=== PATIENT | male | born 1940 | race Caucasian/White ===

== ENCOUNTER → 2016-09-15 | Outpatient (CLI) | payer BC ==
[~2016-09-15] MED LIST: ALLO300T2 PO; ASPI-435 PO; ASPI325T39 PO; FINA5TAB4 PO; GLIP5TAB3 PO; LACT10CA3 PO; LISI-461 PO; METO100T44 PO; MRLP17X PO; NITR0.4S UT; PRT40 PO; SALI0.6510 NAE; SIMV20TA2 PO; TAMS0.4C38 PO
== END | disposition home or self-care (01) ==
LOC: C.LAB 06:44
PROVIDERS: ATTEND Urology
DX: N40.1 Benign prostatic hyperplasia with lower urinary tract symptoms (principal)

== ENCOUNTER 2016-11-20 07:58 | Observation (INO) | payer BC, OTHER ==
[~2016-11-20] VITALS: Ht 185.4 cm; Wt 99.8 kg
[~2016-11-20 07:58] MED LIST changes: -ASPI-435 PO; -PRT40 PO
[2016-11-20] MEDS ORDERED: SODIUM CHLORIDE 0.9% 1000ML 1,000 ML IV STA (08:35)
[2016-11-20] MEDS ORDERED: ASPIRIN 81 MG CHEW ONE (08:42)
[2016-11-20] MEDS ORDERED: NURSING VERBAL MED ORDER ONE (08:45)
[2016-11-20] MEDS ORDERED: NITROGLYCERIN 0.4 MG SL PER TAB CHARGE SL PRN (08:45)
[2016-11-20 08:50] LABS: BASO % 0.6 %; BASO ABS # 0.05 K/uL (0-0.2); COMPLETE YES; EOS % 4.5 %; HEMATOCRIT 50.5 % (42-52); IG% 0.5 %; LYMPH % 17.9 %; LYMPH ABS # 1.38 K/uL (1.2-3.4); MEAN CELL VOLUME 87.8 fL (80-100); MEAN CORPUSCULAR HEMOGLOBIN 29.6 pg (25-34); MEAN CORPUSCULAR HGB CONC 33.7 g/dl (32-36); MEAN PLATELET VOLUME 9.4 fL (7.4-10.4); NEUT % 70.5 %; PLATELET COUNT 123 K/uL (130-400); RED BLOOD COUNT 5.75 M/uL (4.7-6.1); WHITE BLOOD COUNT 7.71 K/uL (4.8-10.8)
[2016-11-20 08:58] LABS: BUN/CREATININE RATIO 15.5 (10-20); CREATININE 1.1 mg/dl (0.60-1.40); POTASSIUM 4.1 mmol/L (3.5-5.1)
[2016-11-20 09:00] LABS: CALCIUM 8.3 mg/dl (8.5-10.1)
[2016-11-20 09:02] LABS: CKMB/CK RATIO 2.3 (0-3.0)
--- NOTE | 2016-11-20 09:06 | DIAGNOSTIC IMAGING REPORT ---
CHEST ONE VIEW PORTABLE CLINICAL HISTORY: CHEST PAIN dyspnea COMPARISON STUDY: 04/22/2015 FINDINGS: The bones soft tissues and hemidiaphragms are normal. The cardiomediastinal silhouette is normal. The lungs are clear. The pulmonary vasculature is normal. IMPRESSION: Negative chest. Electronically signed by: Lance Turner M.D. 11/20/2016 9:05 AM Dictated Date/Time: 11/20/2016 9:04 AM
[2016-11-20] MEDS ORDERED: ASPI-435 PO (09:09)
--- NOTE | 2016-11-20 09:40 | EMERGENCY ROOM VISIT NOTE ---
ED Visit Note First contact with patient: 08:16 Chief Complaint: Chest pain. History of Present Illness: Mr. Sarmiento is a 76 year-old white male who is brought into the ED via wheelchair accompanied by his complaining of chest pain. Historically patient reports he has had a previous inferior lateral [place] and 2000 and was treated with thrombolytics and a follow-up catheterization showed moderate nonocclusive arthrosclerosis coronary artery disease and 3 vessels, type 2 diabetes, hypertension and dyslipidemia. Patient reports he has had a persistent mildly productive cough for the last couple weeks but has had no associated symptoms. He reports he has had recent follow-up with his primary care provider who has decreased his aspirin dose to 81 mg from 324 mg per day. Patient reports he woke from sleep normally today and then after breakfast, at approximately 6:30 AM, he was lying in bed in an acute onset of midsternal chest pain. Since that time his pain has been constant. He describes it as a pressure sensation. His pain is nonradiating. He reports approximately 45 minutes after the onset of this pain he did take one sublingual nitroglycerin tablet and his pain decreased from an 8/10 to a 4/10; which is his current level of discomfort. He has not identified any aggravating factors related to the pain. He does report initially thought this was indigestion and had drank in some soda without relief of his discomfort. He denies any associated symptoms with his pain but nursing staff reports that he was diaphoretic in triage and he reports he had a mild headache after his nitroglycerin administration. He denies fevers, chills, skin eruptions, skin color changes, dizziness, lightheadedness, shortness of breath, wheezing, hemoptysis, other upper respiratory tract symptoms, palpitations, orthopnea, dependent edema, previous clots, claudication, cramping, recent surgery/inactivity/extended travel, abdominal pain, nausea, vomiting, diarrhea, constipation, rectal bleeding, black /tarry stools, back/flank pain, urinary symptoms, hematuria. Review of Systems: As noted above in history of present illness. All body systems were reviewed and found to be negative as noted above. Past Medical History: As previously noted, benign neoplasm of the colon, gout, thyroid nodule, inguinal hernia, status post cataract surgery and unspecified cyst removal from the chest. Current Medications: Medications Dose Route/Sig Max Daily Dose Days Date Category Dose Instructions Aspirin 81 (Aspirin) 81 Mg Tab 81 Mg PO QAM 11/20/16 Reported Williamson Nasal Thor (Saline) 0.65 % Spr 1 Thor EMI TID PRN 04/21/15 Reported Culturelle (Lactobacillus-Inulin) 1 Cap Cap 1 Cap PO DAILY PRN 04/21/15 Reported Flomax (Tamsulosin Hcl) 0.4 Mg Cap 0.4 Mg PO QPM 04/21/15 Reported TAKE 1/2 HOUR AFTER SUPPER Proscar (Finasteride) 5 Mg Tab 5 Mg PO HS 04/21/15 Reported Glucotrol (Glipizide) 5 Mg Tab 5 Mg PO BIDM 04/21/15 Reported Zyloprim (Allopurinol) 300 Mg Tab 300 Mg PO QAM 04/21/15 Reported Nitrostat (Nitroglycerin) 0.4 Mg Sub 0.4 Mg UT UD PRN 02/15/15 Reported Zocor (Simvastatin) 20 Mg Tab 20 Mg PO HS 03/26/07 Reported Zestril (Lisinopril) 10 Mg Tab 10 Mg PO QPM 03/26/07 Reported Toprol-Xl (Metoprolol Succinate) 100 Mg Tabcr 100 Mg PO HS 03/26/07 Reported Allergies to Medications: Penicillin, Bactrim. Social History: Patient is currently retired and lives with his ; he feels safe in his home environment; he denies tobacco and alcohol use. Physical Examination: Vital Signs: Date Time Temp Pulse Resp B/P (MAP) Pulse Ox O2 Delivery O2 Flow Rate FiO2 11/20/16 09:04 65 18 101/57 92 Room Air 11/20/16 08:59 66 20 116/68 92 Room Air 11/20/16 08:52 66 20 107/64 93 Room Air 11/20/16 08:46 66 18 118/64 94 Room Air 11/20/16 08:35 62 18 128/65 95 Room Air 11/20/16 08:21 59 11/20/16 08:10 37.0 61 20 119/60 97 Room Air GENERAL: 76-year-old male in mild distress due to pain, nontoxic-appearing, afebrile and hemodynamically stable. NEUROLOGICAL: Awake, alert and oriented to person, place and time. Answering questions appropriately and following commands. Normal gait. Good hand eye coordination. SKIN: Warm, dry and pink. No soft tissue eruptions or trauma noted. HEENT: Atraumatic and normocephalic. PERRL. Sclera white and conjunctiva pink. Airway patent. Pharynx is nonerythematous or edematous. Speech normal. No lymphadenopathy. Trachea midline. No jugular venous distention. No carotid bruits. BACK: No tenderness over the bony spine. No CVA tenderness. THORAX: Lungs sounds are clear to auscultation and equal bilaterally with symmetrical chest wall. No wheezing, rales or rhonchi. No crepitus, tenderness , subcutaneous air or deformities noted. HEART: Regular rate and rhythm. No gallops, rubs or murmurs are appreciated. No lifts, heaves or thrills. PMI is not displaced. ABDOMEN: Flat, soft and nontender. Positive bowel sounds in all quadrants. No guarding, rigidity or organomegaly. EXTREMITIES: Moves all extremities well on command and with purpose. All distal neurovascular statuses are intact and equal bilaterally. No dependent edema or calf tenderness/cords. ED Course: Patient is assessed as noted above. Laboratory Testing: Test 11/20/16 08:25 11/20/16 08:34 Range/Units White Blood Count 7.71 4.8-10.8 K/uL Red Blood Count 5.75 4.7-6.1 M/uL Hemoglobin 17.0 14.0-18.0 g/dL Hematocrit 50.5 42-52 % Mean Corpuscular Volume 87.8 80-100 fL Mean Corpuscular Hemoglobin 29.6 25-34 pg Mean Corpuscular Hemoglobin Concent 33.7 32-36 g/dl Platelet Count 123 130-400 K/uL Mean Platelet Volume 9.4 7.4-10.4 fL Neutrophils (%) (Auto) 70.5 % Lymphocytes (%) (Auto) 17.9 % Monocytes (%) (Auto) 6.0 % Eosinophils (%) (Auto) 4.5 % Basophils (%) (Auto) 0.6 % Neutrophils # (Auto) 5.43 1.4-6.5 K/uL Lymphocytes # (Auto) 1.38 1.2-3.4 K/uL Monocytes # (Auto) 0.46 0.11-0.59 K/uL Eosinophils # (Auto) 0.35 0-0.5 K/uL Basophils # (Auto) 0.05 0-0.2 K/uL RDW Standard Deviation 44.7 36.4-46.3 fL RDW Coefficient of Variation 13.9 11.5-14.5 % Immature Granulocyte % (Auto) 0.5 % Immature Granulocyte # (Auto) 0.04 0.00-0.02 K/uL Sodium Level 141 136-145 mmol/L Potassium Level 4.1 3.5-5.1 mmol/L Chloride Level 105 98-107 mmol/L Carbon Dioxide Level 26 21-32 mmol/L Anion Gap 10.0 3-11 mmol/L Blood Urea Nitrogen 17 7-18 mg/dl Creatinine 1.10 0.60-1.40 mg/dl Est Creatinine Clear Calc Drug Dose 73.2 ml/min Estimated GFR () 76.2 Estimated GFR (Non- 65.8 BUN/Creatinine Ratio 15.5 10-20 Random Glucose 220 70-99 mg/dl Calcium Level 8.3 8.5-10.1 mg/dl Total Bilirubin 0.6 0.2-1 mg/dl Direct Bilirubin 0.2 0-0.2 mg/dl Aspartate Amino Transf (AST/SGOT) 21 15-37 U/L Alanine Aminotransferase (ALT/SGPT) 34 12-78 U/L Alkaline Phosphatase 62 45-117 U/L Total Creatine Kinase 97 39-308 U/L Creatine Kinase MB 2.2 0.5-3.6 ng/ml Creatine Kinase MB Ratio 2.3 0-3.0 Total Protein 6.1 6.4-8.2 gm/dl Albumin 3.3 3.4-5.0 gm/dl Lipase 209 73-393 U/L Bedside Troponin I < 0.030 0-0.045 ng/ml Chest X-Ray: Was read by myself and reviewed with Dr. Cowart; shows no acute infiltrates, effusions or pneumothorax. Normal heart silhouette and bony anatomy. Normal-appearing vasculature. EKG: Was read by myself and reviewed with Dr. Cowart; shows sinus rhythm with first-degree AV block and occasional PVC. Ventricular rate [address] changes indicating ischemia, injury or infarction. This was compared to a previous from April 2015 and shows a new onset of first-degree AV block. Patient was hydrated with normal saline and patient received a total of 3 sublingual nitroglycerin tablets 0.4 mg and 243 mg of aspirin by mouth. Patient was reassessed multiple times during his stay in the emergency department; after his nitroglycerin trial he was reevaluated and reported his discomfort was 0.5/10. Patient's case was reviewed with Dr. Cowart; we agreed on diagnostic evaluation, treatment and disposition. Patient's case was consulted with case management and Ms. Cuba PA-C, [facility], for medical admission/observation. Patient was educated about today's findings. Clinical Impression: Acute chest pain. Decision-Making: Initially my differential diagnosis I considered acute coronary syndrome, thoracic aneurysm, pneumothorax, pneumonia, pulmonary embolism, musculoskeletal disorder and other causes. Disposition and Plan: Patient be brought into the hospital by the [facility]; please see their notes and orders for final disposition and plan.
[2016-11-20 09:47] VITALS: O2SAT 92; Ht 185.4 cm; Wt 99.8 kg
--- NOTE | 2016-11-20 11:22 | History and Physical ---
History & Physical Date & Time of Service: Nov 20, 2016 at 10:53 Chief Complaint: Chest Pain Primary Care Physician: Chacho Babin MD History of Present Illness Source: patient, family Attending: Dr. Villanueva This is a 76 yo male with a history of previous inferiolateral [place] in 1999. He was [place]fre[place] [facility] time and underwent cardiac catheterization. He was treated medically as he was told that he had less than 25% occlusion in 3 vessels and was nota a candidate for intervention. He reports that he awoke this morning, ate breakfast consisting of cheerios and developed midsternal chest pain rated 8/10. He took one SL nitro tablet and pain improved to 4/10. He came to the ED for further evaluation and treatment. He received another 3 nitro tablets and pain improved to 0.5/10. At the time of my examination, his pain is reported as 2/10. In addition to the chest pain he does report some dyspepsia when eating. His also notes that he frequently coughs when eating and when drinking. EKG reveals a new 1st degree AV block. No nausea or vomiting. No radiation of pain.No back pain. No fever or recent illness. No pleuritic pain. No SOB. No awareness of tachyarrhythmia. No hemoptysis. Past Medical/Surgical History Medical Problems: (1) Benign neoplasm of colon Permanent Comment: 06/23/10- polyp x 1- adenomatous tissue Status: Chronic (2) BPH (benign prostatic hypertrophy) Status: Chronic (3) CAD (coronary artery disease) Permanent Comment: s/p acute inferolateral [place] 1999 treated with thrombolytic therapy Cardiac cath in 1999 - moderate nonocclusive atherosclerotic coronary disease all 3 vessels with significant lesion 50% narrowing right coronary artery, occlusive lesion origin 1st diagonal. Preserved LV function. Status: Chronic (4) DM type 2 (diabetes mellitus, type 2) Status: Chronic (5) Gout Status: Chronic (6) Hx-Penicillin Allergy Status: Chronic (7) Hypertension Nos Status: Chronic (8) Inguinal hernia Status: Chronic (9) Pure Hypercholesterolem Status: Chronic (10) Thyroid nodule Status: Chronic Surgical Problems: (1) H/O colonoscopy Permanent Comment: 06/23/10- polyp x1- adenomatous tissue, internal hemorrhoids 08/09/13- one 5 mm polyp in descending colon- tubular adenoma Status: Chronic (2) S/P cataract surgery Status: Chronic (3) s/p cyst removal from chest Status: Chronic (4) Hx of cardiac catheterization in 1999 at [facility] Family History FH: CAD (coronary artery disease) FATHER (dief of ND age 53) MOTHER ( of ND age 91) BROTHER ( of ND age 21) FH: diabetes mellitus FATHER DAUGHTER SISTER Social History Smoking Status: Never Smoker Smokeless Tobacco Use: No Alcohol Use: none Drug Use: none Marital Status: Housing status: lives with family Occupational Status: retired Multi-Drug Resistant Organisms History of MDRO: No Allergies Coded Allergies: Sulfamethoxazole w/Trimethoprim (Verified Allergy, Mild, RASH, 11/20/16) Penicillins (Verified Allergy, Unknown, 11/20/16) Home Medications Scheduled Allopurinol (Zyloprim), 300 MG PO QAM Aspirin (Aspirin 81), 81 MG PO QAM Finasteride (Proscar), 5 MG PO HS Glipizide (Glucotrol), 5 MG PO BIDM Lisinopril (Zestril), 10 MG PO QPM Metoprolol Succ (Toprol Xl) (Toprol-Xl ), 100 MG PO HS Simvastatin (Zocor), 20 MG PO HS Tamsulosin Hcl (Flomax), 0.4 MG PO QPM Scheduled PRN Lactobacillus-Inulin (Culturelle), 1 CAP PO DAILY PRN for Diarrhea Nitroglycerin (Nitrostat), 0.4 MG UT UD PRN for Chest Pain Saline ([place] Nasal [place]), 1 SPRAY EMI TID PRN for nasal congestion or dryness Review of Systems A total of 12 systems was reviewed and is negative other than as listed above in the HPI Physical Exam Vital Signs Date Time Temp Pulse Resp B/P (MAP) Pulse Ox O2 Delivery O2 Flow Rate FiO2 11/20/16 10:37 48 18 136/69 97 Room Air 11/20/16 09:47 92 Room Air 11/20/16 09:04 65 18 101/57 92 Room Air 11/20/16 08:59 66 20 116/68 92 Room Air 11/20/16 08:52 66 20 107/64 93 Room Air 11/20/16 08:46 66 18 118/64 94 Room Air 11/20/16 08:35 62 18 128/65 95 Room Air 11/20/16 08:21 59 11/20/16 08:10 97 Room Air 11/20/16 08:10 37.0 61 20 119/60 97 Room Air 11/20/16 08:10 95 Room Air General - NAD. present Eyes - No icterus, gaze conjugate. PERRL ENT - Mucosa moist, no lesions or candidiasis. Tongue midline Neck - Supple, No JVD. No bruits Lungs - No bronchospasm, rales, or rhonchi. Heart - Regular, rate controlled. No MGRs Chest - No reproducible chest pain. No evidence of trauma Back - Lipoma vs cyst just below right scapula. Non-tender. No erythema. No S/S of infection Abdomen - Soft, NT, ND, BS present. Truncal obesity. No rebound tenderness Extremities - No edema, pedal pulses intact Neuro - A&OX3 Diagnostics Laboratory Results Results Past 24 Hours Test 11/20/16 08:25 11/20/16 08:34 Range/Units White Blood Count 7.71 4.8-10.8 K/uL Red Blood Count 5.75 4.7-6.1 M/uL Hemoglobin 17.0 14.0-18.0 g/dL Hematocrit 50.5 42-52 % Mean Corpuscular Volume 87.8 80-100 fL Mean Corpuscular Hemoglobin 29.6 25-34 pg Mean Corpuscular Hemoglobin Concent 33.7 32-36 g/dl Platelet Count 123 130-400 K/uL Mean Platelet Volume 9.4 7.4-10.4 fL Neutrophils (%) (Auto) 70.5 % Lymphocytes (%) (Auto) 17.9 % Monocytes (%) (Auto) 6.0 % Eosinophils (%) (Auto) 4.5 % Basophils (%) (Auto) 0.6 % Neutrophils # (Auto) 5.43 1.4-6.5 K/uL Lymphocytes # (Auto) 1.38 1.2-3.4 K/uL Monocytes # (Auto) 0.46 0.11-0.59 K/uL Eosinophils # (Auto) 0.35 0-0.5 K/uL Basophils # (Auto) 0.05 0-0.2 K/uL RDW Standard Deviation 44.7 36.4-46.3 fL RDW Coefficient of Variation 13.9 11.5-14.5 % Immature Granulocyte % (Auto) 0.5 % Immature Granulocyte # (Auto) 0.04 0.00-0.02 K/uL Sodium Level 141 136-145 mmol/L Potassium Level 4.1 3.5-5.1 mmol/L Chloride Level 105 98-107 mmol/L Carbon Dioxide Level 26 21-32 mmol/L Anion Gap 10.0 3-11 mmol/L Blood Urea Nitrogen 17 7-18 mg/dl Creatinine 1.10 0.60-1.40 mg/dl Est Creatinine Clear Calc Drug Dose 73.2 ml/min Estimated GFR () 76.2 Estimated GFR (Non- 65.8 BUN/Creatinine Ratio 15.5 10-20 Random Glucose 220 70-99 mg/dl Calcium Level 8.3 8.5-10.1 mg/dl Total Bilirubin 0.6 0.2-1 mg/dl Direct Bilirubin 0.2 0-0.2 mg/dl Aspartate Amino Transf (AST/SGOT) 21 15-37 U/L Alanine Aminotransferase (ALT/SGPT) 34 12-78 U/L Alkaline Phosphatase 62 45-117 U/L Total Creatine Kinase 97 39-308 U/L Creatine Kinase MB 2.2 0.5-3.6 ng/ml Creatine Kinase MB Ratio 2.3 0-3.0 Total Protein 6.1 6.4-8.2 gm/dl Albumin 3.3 3.4-5.0 gm/dl Lipase 209 73-393 U/L Bedside Troponin I < 0.030 0-0.045 ng/ml Diagnostic Radiology CHEST ONE VIEW PORTABLE CLINICAL HISTORY: CHEST PAIN dyspnea COMPARISON STUDY: 04/22/2015 FINDINGS: The bones soft tissues and hemidiaphragms are normal. The cardiomediastinal silhouette is normal. The lungs are clear. The pulmonary vasculature is normal. IMPRESSION: Negative chest. Electronically signed by: Lance Turner M.D. 11/20/2016 9:05 AM EKG Vent. rate 60 BPM OH interval 244 ms QRS duration 88 ms QT/QTc 414/414 ms P-R-T axes 22 30 8 Sinus rhythm with 1st degree A-V block with occasional Premature ventricular complexes Otherwise normal ECG When compared with ECG of 21-APR-2015 09:30, Premature ventricular complexes are now Present OH interval has increased Confirmed by CEM ALEXIS ([id number]) on 11/20/2016 11:13:37 AM Impression Assessment and Plan CHEST PAIN History of multivessel non-occlusive disease evaluated by cardiac catheterization in 1999 at [facility] No recent echocardiograms Does not follow with cardiology ASA recently reduced to 81 mg PO Daily EKG with new 1st degree AV block. No ST changes Troponin < 0.03 Electrolytes balanced Admit to telemetry for observation Heparin sub q every 8 hours Check echocardiogram Follow serial enzymes COAGULOPATHY INR 1.3 No outpatient anticoagulation LFTs within normal limits Repeat labs in the morning Hx CAD Continue Metoprolol Succinate, Simvastatin, Lisinopril, and ASA Follow on telemetry GERD Undiagnosed Hx consistent with dyspepsia Also with question of dysphagia Start Pantoprazole 40 mg PO Daily Swallow evaluation Outpatient workup for GERD DM TYPE II Hold Glipizide while inpatient and start Novolog SSI BPH Tamsulosin Finasteride GOUT Continue allopurinol DVT PROPHYLAXIS Heparin SQ TID Please refer to Dr. Villanueva's addendum for further recommendations Attending Addendum: The patient was seen and examined Lower central chest/epigastric pain after food today Not like the pain of his heart attack No associated symptoms of SOB,sweating.nausea and or vomiting Relieved with nitro to some wxtent O/E Heent- negative Hemodynamically stable Chest-clear to auscultate bilaterally Heart-regular,no murmur appreciated Labs and Imaging studies were reviewed. Remains asymptomatic Atypical CP-doubt any ACS Likely Reflux disease Agree with the assessment and plan. Dr Milton Villanueva Level of Care Telemetry Advanced Directives Existing Living Will: No Existing Power of Sales Representative Supervisor: No Resuscitation Status FULL RESUSCITATION VTE Prophylaxis VTE Risk Assessment Done? Y/N: Yes Risk Level: Low Given or contraindicated: Unfractionated heparin SQ Social Service Consult None Apply
[2016-11-20] MEDS ORDERED: GLUCAGON FOR INJ 1 MG VIAL SQ PRN (11:30)
[2016-11-20] MEDS ORDERED: SODIUM CHLORIDE 0.65% NA SOLN 45 ML (OCEAN) NAE PRN (11:30)
[2016-11-20] MEDS ORDERED: GLUCOSE 40% GEL 15 GM TUBE PO PRN (11:30)
[2016-11-20] MEDS ORDERED: ACETAMINOPHEN 325 MG TAB PO PRN (11:30)
[2016-11-20] MEDS ORDERED: NITROGLYCERIN 0.4 MG SL PER TAB CHARGE UT PRN (11:30)
[2016-11-20] MEDS ORDERED: POLYETHYLENE (MIRALAX) 17 GM PACK PO PRN (11:30)
[2016-11-20] MEDS ORDERED: GLUCOSE 10 TABS/TUBE PO PRN (11:30)
[2016-11-20] MEDS ORDERED: MAGNESIUM HYDROXIDE SUSP 30 ML UDC PO PRN (11:30)
[2016-11-20] MEDS ORDERED: ONDANSETRON INJ 2 MG/ML 2 ML VIAL IV PRN (11:30)
[2016-11-20] MEDS ORDERED: ALUMINUM/MAGNESIUM/SIMETH (MAALOX MAX) 30 ML UDC PO PRN (11:30)
[2016-11-20] MEDS ORDERED: DEXTROSE 50% 50 ML SYR IV PRN (11:30)
[2016-11-20 11:41] VITALS: O2SAT 93
[2016-11-20 12:00] VITALS: BP 122/68; PULSE 48; TEMP 36.6; O2SAT 95
[2016-11-20] MEDS ORDERED: PANTOprazole SOD 40 MG TAB PO ONE (12:30)
[2016-11-20] MEDS ORDERED: PHARMACY GLYCEMIC MGMT CONSULT PRN (12:34)
--- NOTE | 2016-11-20 12:37 | EMERGENCY ROOM VISIT NOTE ---
ED Visit Note First contact with patient: 08:16 I have personally seen and evaluated the patient with the PA. I agree with the diagnosis and management decisions and have been personally involved in the case. Please see Gutierrez Guevara PA-C's notes for further details of the history, physical and visit.
[2016-11-20] MEDS ORDERED: INSULIN GLARGINE SOLOSTAR 100 UNITS/ML 3 ML PEN SC SCH ×2 (13:00→21:00)
[2016-11-20 13:17] LABS: INR 1.1 (0.9-1.1); PROTHROMBIN TIME (PATIENT) 11.4 SECONDS (9.0-12.0)
[2016-11-20] MEDS: HEPARIN SOD 5000 UNIT/0.5 ML CARP SQ SCH ×2 (14:00→21:11)
[2016-11-20] MEDS: INSULIN ASPART 100 UNITS/ML 3 ML PEN SC SCH ×3 (14:28→21:00)
[2016-11-20] MEDS ORDERED: IV FLUIDS COMPLETED PRN (14:45)
[2016-11-20 14:58] VITALS: BP 102/58; PULSE 55; TEMP 36.5; O2SAT 95
--- NOTE | 2016-11-20 15:16 | Pharmacy Progress Note ---
Glycemic Control Intl Consult Date of Service Nov 20, 2016. Scope Glycemic Pharmacist consulted by Cuba on 11/20/16 for glycemic control and to write orders per [facility] inpatient glycemic control protocol Objective Weight (Kilograms): 99.800 Accuchecks BSG (last 24hrs): Test 11/20/16 08:25 11/20/16 12:15 Random Glucose 220 mg/dl (70-99) Bedside Glucose 87 mg/dl (70-99) Laboratory Data (last 24hrs) Test 11/20/16 08:25 Anion Gap 10.0 mmol/L BUN/Creatinine Ratio 15.5 Blood Urea Nitrogen 17 mg/dl Creatinine 1.10 mg/dl Potassium Level 4.1 mmol/L Sodium Level 141 mmol/L White Blood Count 7.71 K/uL Red Blood Count 5.75 M/uL Hemoglobin 17.0 g/dL Hematocrit 50.5 % Mean Corpuscular Volume 87.8 fL Mean Corpuscular Hemoglobin 29.6 pg Mean Corpuscular Hemoglobin Concent 33.7 g/dl Platelet Count 123 K/uL Mean Platelet Volume 9.4 fL Neutrophils (%) (Auto) 70.5 % Lymphocytes (%) (Auto) 17.9 % Monocytes (%) (Auto) 6.0 % Eosinophils (%) (Auto) 4.5 % Basophils (%) (Auto) 0.6 % Neutrophils # (Auto) 5.43 K/uL Lymphocytes # (Auto) 1.38 K/uL Monocytes # (Auto) 0.46 K/uL Eosinophils # (Auto) 0.35 K/uL Basophils # (Auto) 0.05 K/uL Recent Pertinent Medications Outpatient Anti-diabetic Regimen: * Glipizide 5mg po BIDM * A1c not on file. Updated A1c ordered with tomorrow's AM labs. Risk Factors for Insulin Resistance: * Diet:AHA/DM2 Assessment & Plan ASSESSMENT: * ADA & AACE recommend a goal blood sugar range 140-180 mg/dl for the majority of critically ill & non-critically ill patients. However, more stringent targets may be selected in individual cases. * 76 yo male admitted with chest pain. EKG in ED revealed 1st degree AV block. * BSG upon admission (on random venipuncture) was elevated at 220mg/dl. However , pre-lunch BSG on POC was 87 mg/dl. * Pt is controlled on oral antihyperglycemic agents as an outpatient. Will place on hold during admission and transition to SQ basal/bolus regimen. * Will begin regimen in consideration of weight based dosing and suspicion that pt is sensitive to exogenous insulin. PLAN FOR INPATIENT GLYCEMIC CONTROL: * Start Lantus per scale * For BSG below 120 mg/dl - 0 units * For BSG 121- 180 mg/dl - 5 units * For BSG 181 mg/dl and above - 10 untis * Novolog ACHS * Set correction factor to 30 mg/dl/unit * Set carb ratio to 1 unit per 10 grams CHO consumed * Set goal range Low 110 mg/dL - High 150 mg/dL * Please note that the plan above was derived based on current level of insulin resistance and hospital stress. These recommendations are appropriate for inpatient admission only. Plan of care upon discharge will need to be reassessed to avoid potential outpatient hypo/hyperglycemia. Thank you.
[2016-11-20 17:33] LABS: CKMB/CK RATIO 2.5 (0-3.0)
[2016-11-20 18:58] VITALS: BP 130/75; PULSE 48; TEMP 36.5; O2SAT 97
[2016-11-20] MEDS ORDERED: SIMVASTATIN 20 MG TAB PO SCH (21:00)
[2016-11-20] MEDS ORDERED: METOPROLOL SUCC 50MG EXT REL TAB PO SCH (21:00)
[2016-11-20] MEDS ORDERED: TAMSULOSIN HCL 0.4 MG CAP PO SCH (21:00)
[2016-11-20] MEDS ORDERED: FINASTERIDE 5 MG TAB PO SCH (21:00)
[2016-11-20] MEDS ORDERED: LISINOPRIL 10 MG TAB PO SCH (21:00)
[2016-11-20 23:11] VITALS: BP 118/64; PULSE 51; TEMP 36.6; O2SAT 96
[2016-11-21 01:18] LABS: CKMB/CK RATIO 2.8 (0-3.0)
[2016-11-21 04:00] VITALS: BP 125/70; PULSE 53; TEMP 36.4; O2SAT 95
[2016-11-21 05:53] LABS: BASO % 0.3 %; BASO ABS # 0.03 K/uL (0-0.2); COMPLETE YES; EOS % 4.1 %; HEMATOCRIT 50.8 % (42-52); IG% 0.3 %; LYMPH ABS # 1.87 K/uL (1.2-3.4); MEAN CELL VOLUME 88.2 fL (80-100); MEAN CORPUSCULAR HEMOGLOBIN 29.5 pg (25-34); MEAN CORPUSCULAR HGB CONC 33.5 g/dl (32-36); MEAN PLATELET VOLUME 9.4 fL (7.4-10.4); MONO % 6.3 %; PLATELET COUNT 108 K/uL (130-400); RED BLOOD COUNT 5.76 M/uL (4.7-6.1); WHITE BLOOD COUNT 8.92 K/uL (4.8-10.8)
[2016-11-21] MEDS: HEPARIN SOD 5000 UNIT/0.5 ML CARP SQ SCH (06:00)
[2016-11-21 06:27] LABS: BUN/CREATININE RATIO 15.5 (10-20); CALCIUM 8.6 mg/dl (8.5-10.1); POTASSIUM 4.2 mmol/L (3.5-5.1)
[2016-11-21 06:49] VITALS: BP 116/73; PULSE 56; TEMP 36.6; O2SAT 97
[2016-11-21] MEDS: INSULIN ASPART 100 UNITS/ML 3 ML PEN SC SCH (07:46)
--- NOTE | 2016-11-21 08:46 | ECHOCARDIOGRAM REPORT ---
*NOTICE TO RECEIVING DEMOCRAT AGENCY This information is strictly Confidential and protected under [place] law. [place] law prohibits you from making any further disclosure of this information unless further disclosure is expressly permitted by the written consent of the person to whom it pertains or is authorized by law. A general authorization for the release of medical or other information is not sufficient for this purpose. Hospital accepts no responsibility if the information is made available to any other person, INCLUDING THE PATIENT. Interpretation Summary * Name: KANNAN BENNETT JR Study Date: 11/20/2016 12:17 PM BP: 122/68 mmHg * Patient Location: [facility]\S\[id number] HR: 48 * : 1940 (M/d/yyyy) Gender: Male Height: 73 in * Age: 76 yrs Ethnicity: CA Weight: 220 lb * Ordering Physician: Olvin Andino * Referring Physician: Self, Referred * Performed By: Carmina Watson RDCS * * Reason For Study: NEW PVCS, 1ST DEGREE HEART BLOCK * BSA: 2.2 m2 * -- Conclusions -- * The left ventricle is normal in size. * Left ventricular systolic function is normal. * Focal thickening of the basal septum with no evidence of left ventricular outflow obstruction. * The left ventricular wall motion is normal. * Ejection Fraction = 60-65%. * Aortic valve sclerosis moderate, without significant aortic valvular stenosis. * The aortic root is normal size. * There is no pericardial effusion. Procedure Details * A complete two-dimensional transthoracic echocardiogram was performed (2D, M-mode, Doppler and color flow Doppler). Left Ventricle * The left ventricle is normal in size. * Focal thickening of the basal septum with no evidence of left ventricular outflow obstruction. * Ejection Fraction = 60-65%. * Left ventricular systolic function is normal. * The left ventricular wall motion is normal. Right Ventricle * The right ventricle is normal in size and function. Atria * The left atrial size is normal. * Right atrial size is normal. * No ASD detected; PFO is not assessed. Mitral Valve * The mitral valve is normal. * There is no mitral valve stenosis. * There is trace mitral regurgitation. Tricuspid Valve * The tricuspid valve is normal. * There is no tricuspid stenosis. * There is trace tricuspid regurgitation. * Right ventricular systolic pressure is normal. Aortic Valve * The aortic valve is trileaflet. * Aortic valve sclerosis moderate, without significant aortic valvular stenosis. * No aortic regurgitation is present. Pulmonic Valve * The pulmonic valve is not well visualized. Great Vessels * The aortic root is normal size. Pericardium/Pleural * There is no pericardial effusion. Great Vessels * Normal inferior vena cava diameter and respiratory variation suggests normal central venous pressure. MMode 2D Measurements and Calculations IVSd 0.96 cm IVSs 1.6 cm LVIDd 4.8 cm LVIDs 3.2 cm LVPWd 1.3 cm LVPWs 1.9 cm IVS/LVPW 0.76 FS 32.6 % EDV(Teich) 105.4 ml ESV(Teich) 41.2 ml EF(Teich) 60.8 % EDV(cubed) 107.7 ml ESV(cubed) 33.1 ml EF(cubed) 69.3 % % IVS thick 66.4 % % LVPW thick 48.0 % LV mass(C)d 193.8 grams LV mass(C)dI 86.5 grams/m\S\2 LV mass(C)s 220.3 grams LV mass(C)sI 98.3 grams/m\S\2 SV(Teich) 64.1 ml SI(Teich) 28.6 ml/m\S\2 SV(cubed) 74.7 ml SI(cubed) 33.3 ml/m\S\2 Ao root diam 3.6 cm Ao root area 10.1 cm\S\2 LA dimension 4.1 cm LA/Ao 1.1 LVAd ap4 29.3 cm\S\2 LVLd ap4 8.4 cm EDV(MOD-sp4) 83.5 ml EDV(sp4-el) 86.9 ml LVAs ap4 17.3 cm\S\2 LVLs ap4 7.7 cm ESV(MOD-sp4) 33.5 ml ESV(sp4-el) 33.2 ml EF(MOD-sp4) 59.9 % EF(sp4-el) 61.8 % LVAd ap2 37.0 cm\S\2 LVLd ap2 9.5 cm EDV(MOD-sp2) 120.8 ml EDV(sp2-el) 122.7 ml LVAs ap2 20.3 cm\S\2 LVLs ap2 8.0 cm ESV(MOD-sp2) 45.2 ml ESV(sp2-el) 43.4 ml EF(MOD-sp2) 62.6 % EF(sp2-el) 64.6 % LVLd %diff 11.5 % EDV(MOD-bp) 106.1 ml LVLs %diff 4.5 % ESV(MOD-bp) 39.1 ml EF(MOD-bp) 63.1 % SV(MOD-sp4) 50.0 ml SI(MOD-sp4) 22.3 ml/m\S\2 SV(MOD-sp2) 75.6 ml SI(MOD-sp2) 33.7 ml/m\S\2 SV(MOD-bp) 67.0 ml SI(MOD-bp) 29.9 ml/m\S\2 SV(sp4-el) 53.7 ml SI(sp4-el) 24.0 ml/m\S\2 SV(sp2-el) 79.3 ml SI(sp2-el) 35.4 ml/m\S\2 Doppler Measurements and Calculations MV E max tony 68.9 cm/sec MV A max tony 75.7 cm/sec MV E/A 0.91 MV dec time 0.25 sec Ao V2 max 105.9 cm/sec Ao max PG 4.5 mmHg Ao max PG (full) 0.83 mmHg LV V1 max PG 3.7 mmHg LV V1 max 95.6 cm/sec TR max tony 237.8 cm/sec
[2016-11-21] MEDS ORDERED: ALLOPURINOL 300 MG TAB PO SCH (09:00)
[2016-11-21] MEDS ORDERED: ASPIRIN 81 MG ECTAB PO SCH (09:00)
[2016-11-21] MEDS ORDERED: PANTOprazole SOD 40 MG TAB PO SCH (09:00)
--- NOTE | 2016-11-21 09:14 | Progress Note ---
Internal Med Progress Note Date of Service: Nov 21, 2016. Provider Documentation: SUBJECTIVE: The patient was seen and examined Denies any more CP No burning pain in epigastrium Ready to go home OBJECTIVE: Vital Signs-as noted below Exam: General-No distress at rest Eyes-normal ENT-normal Neck-Supple Lungs-Clear to auscultate bilaterally Heart-Regular,no murmur appreciated Abdomen-Benign,no masses,bowel sound present Extremities-No edema Neuro-AAOx3 Lab data as noted below. ASSESSMENT & PLAN: CHEST PAIN History of multivessel non-occlusive disease evaluated by cardiac catheterization in 1999 at [facility] [place] ASA recently reduced to 81 mg PO Daily EKG with new 1st degree AV block. No ST changes Troponin < 0.03 and Serial CE were unremarkable Check echocardiogram::The left ventricle is normal in size. * Left ventricular systolic function is normal. * Focal thickening of the basal septum with no evidence of left ventricular outflow obstruction. * The left ventricular wall motion is normal. * Ejection Fraction = 60-65%. * Aortic valve sclerosis moderate, without significant aortic valvular stenosis. * The aortic root is normal size. * There is no pericardial effusion. Symptoms resolved Ready to be discharged Will need OP cardiology follow up COAGULOPATHY INR 1.3 No outpatient anticoagulation LFTs within normal limits Repeat labs in the morning Hx CAD Continue Metoprolol Succinate, Simvastatin, Lisinopril, and ASA Follow on telemetry GERD Undiagnosed Hx consistent with dyspepsia Also with question of dysphagia Start Pantoprazole 40 mg PO Daily Symptomatically a lot better with PPI Will continue at discharge DM TYPE II Hold Glipizide while inpatient and start Novolog SSI BPH Tamsulosin Finasteride GOUT Continue allopurinol DVT PROPHYLAXIS Heparin SQ TID DISPOSITION Discharged today Vital Signs: Date Time Temp Pulse Resp B/P (MAP) Pulse Ox O2 Delivery O2 Flow Rate FiO2 11/21/16 09:20 36.6 56 18 97 Room Air 11/21/16 06:49 36.6 56 18 116/73 (87) 97 Room Air 11/21/16 04:00 Room Air 11/21/16 04:00 36.4 53 20 125/70 (88) 95 Room Air 11/21/16 00:00 Room Air 11/20/16 23:11 36.6 51 20 118/64 (82) 96 Room Air 11/20/16 20:00 Room Air 11/20/16 18:58 36.5 48 18 130/75 (93) 97 Room Air 11/20/16 15:35 Room Air 11/20/16 14:58 36.5 55 18 102/58 (73) 95 Room Air Lab Results: Results Past 24 Hours Test 11/20/16 16:42 11/20/16 16:58 11/20/16 20:52 11/21/16 00:30 Range/Units Total Creatine Kinase 68 60 39-308 U/L Creatine Kinase MB 1.7 1.7 0.5-3.6 ng/ml Creatine Kinase MB Ratio 2.5 2.8 0-3.0 Troponin I < 0.015 < 0.015 0-0.045 ng/ml Bedside Glucose 95 90 70-99 mg/dl Test 11/21/16 05:15 11/21/16 07:22 Range/Units White Blood Count 8.92 4.8-10.8 K/uL Red Blood Count 5.76 4.7-6.1 M/uL Hemoglobin 17.0 14.0-18.0 g/dL Hematocrit 50.8 42-52 % Mean Corpuscular Volume 88.2 80-100 fL Mean Corpuscular Hemoglobin 29.5 25-34 pg Mean Corpuscular Hemoglobin Concent 33.5 32-36 g/dl Platelet Count 108 130-400 K/uL Mean Platelet Volume 9.4 7.4-10.4 fL Neutrophils (%) (Auto) 68.0 % Lymphocytes (%) (Auto) 21.0 % Monocytes (%) (Auto) 6.3 % Eosinophils (%) (Auto) 4.1 % Basophils (%) (Auto) 0.3 % Neutrophils # (Auto) 6.06 1.4-6.5 K/uL Lymphocytes # (Auto) 1.87 1.2-3.4 K/uL Monocytes # (Auto) 0.56 0.11-0.59 K/uL Eosinophils # (Auto) 0.37 0-0.5 K/uL Basophils # (Auto) 0.03 0-0.2 K/uL RDW Standard Deviation 44.8 36.4-46.3 fL RDW Coefficient of Variation 13.9 11.5-14.5 % Immature Granulocyte % (Auto) 0.3 % Immature Granulocyte # (Auto) 0.03 0.00-0.02 K/uL Sodium Level 144 136-145 mmol/L Potassium Level 4.2 3.5-5.1 mmol/L Chloride Level 108 98-107 mmol/L Carbon Dioxide Level 29 21-32 mmol/L Anion Gap 7.0 3-11 mmol/L Blood Urea Nitrogen 15 7-18 mg/dl Creatinine 1.00 0.60-1.40 mg/dl Est Creatinine Clear Calc Drug Dose 80.5 ml/min Estimated GFR () 85.6 Estimated GFR (Non- 73.8 BUN/Creatinine Ratio 15.5 10-20 Random Glucose 130 70-99 mg/dl Calcium Level 8.6 8.5-10.1 mg/dl Bedside Glucose 132 70-99 mg/dl
[2016-11-21] MEDS ORDERED: PRT40 PO (09:15)
--- NOTE | 2016-11-21 09:18 | Discharge Instructions ---
Discharge Instructions Date of Service Nov 21, 2016. Admission Reason for Admission: Chest Pain Discharge Discharge Diagnosis / Problem: Atypical Chest pain, GERD Discharge Goals Goal(s): Prevent Disease Progression Activity Recommendations Activity Limitations: resume your previous activity . Instructions / Follow-Up Instructions / Follow-Up Your doctor's office will call with appointment,Please keep regular cardiology appointment Current Hospital Diet Patient's current hospital diet: AHA Diet (Heart Healthy), Diabetes Type 2 Diet Discharge Diet Recommended Diet: AHA Diet (Heart Healthy), Diabetes Type 2 Diet Pending Studies Studies pending at discharge: no Laboratory Results Hemoglobin A1c Test 11/21/16 05:15 Range/Units Medical Emergencies . Who to Call and When: Medical Emergencies: If at any time you feel your situation is an emergency, please call 911 immediately. . Non-Emergent Contact Non-Emergency issues call your: Primary Care Provider . Past History Medical & Surgical History: (1) Dyspepsia (2) GERD (gastroesophageal reflux disease) (3) Chest pain (4) CAD (coronary artery disease) (5) Hypertension Nos (6) DM type 2 (diabetes mellitus, type 2) (7) Gout (8) BPH (benign prostatic hypertrophy) (9) S/P cataract surgery (10) s/p cyst removal from chest (11) H/O colonoscopy . "Provider Documentation" section prepared by Clifford Villanueva. . VTE Core Measure Inpt VTE Proph given/why not?: Unfractionated heparin SQ
[2016-11-21 09:20] VITALS: BP 116/73; PULSE 56; TEMP 36.6; O2SAT 97
--- NOTE | 2016-11-22 07:37 | Discharge Summary ---
Discharge Summary Date of Service Nov 22, 2016. Discharge Summary Admission Date: Nov 20, 2016 at 11:05 Discharge Date: Nov 21, 2016 Discharge Disposition: Home Principal Diagnosis: Atypical Chest pain, GERD Secondary Diagnoses/Problems: Please see H&P and Hospital Progress Note Medication Reconciliation New Medications: Pantoprazole (Pantoprazole Sodium) 40 Mg Tab 40 MG PO QAM for 30 Days, #30 TAB Continued Medications: Allopurinol (Zyloprim) 300 Mg Tab 300 MG PO QAM, TAB Aspirin (Aspirin 81) 81 Mg Tab 81 MG PO QAM Finasteride (Proscar) 5 Mg Tab 5 MG PO HS, TAB Glipizide (Glucotrol) 5 Mg Tab 5 MG PO BIDM, TAB Lactobacillus-Inulin (Culturelle) 1 Cap Cap 1 CAP PO DAILY PRN for Diarrhea Lisinopril (Zestril) 10 Mg Tab 10 MG PO QPM, 0 Refills Metoprolol Succ (Toprol Xl) (Toprol-Xl ) 100 Mg Tabcr 100 MG PO HS, 0 Refills Nitroglycerin (Nitrostat) 0.4 Mg Sub 0.4 MG UT UD PRN for Chest Pain, BTL Saline (Caberfae Nasal [place]bl[place]) 0.65 % Spr 1 SPRAY EMI TID PRN for nasal congestion or dryness Simvastatin (Zocor) 20 Mg Tab 20 MG PO HS, 0 Refills Tamsulosin Hcl (Flomax) 0.4 Mg Cap 0.4 MG PO QPM, CAP TAKE 1/2 HOUR AFTER SUPPER Admission Information HPI (per Admitting provider): Attending: Dr. Villanueva This is a 76 yo male with a history of previous inferiolateral MD in 1999. He was [facility]frered [place] [facility] [place] that time and underwent cardiac catheterization. He was treated medically as he was told that he had less than 25% occlusion in 3 vessels and was nota a candidate for intervention. He reports that he awoke this morning, ate breakfast consisting of cheerios and developed midsternal chest pain rated 8/10. He took one SL nitro tablet and pain improved to 4/10. He came to the ED for further evaluation and treatment. He received another 3 nitro tablets and pain improved to 0.5/10. At the time of my examination, his pain is reported as 2/10. In addition to the chest pain he does report some dyspepsia when eating. His also notes that he frequently coughs when eating and when drinking. EKG reveals a new 1st degree AV block. No nausea or vomiting. No radiation of pain.No back pain. No fever or recent illness. No pleuritic pain. No SOB. No awareness of tachyarrhythmia. No hemoptysis. Past Medical/Surgical History Medical Problems: (1) Benign neoplasm of colon Permanent Comment: 06/23/10- polyp x 1- adenomatous tissue Status: Chronic (2) BPH (benign prostatic hypertrophy) Status: Chronic (3) CAD (coronary artery disease) Permanent Comment: s/p acute inferolateral MD 1999 treated with thrombolytic therapy Cardiac cath in 1999 - moderate nonocclusive atherosclerotic coronary disease all 3 vessels with significant lesion 50% narrowing right coronary artery, occlusive lesion origin 1st diagonal. Preserved LV function. Status: Chronic (4) DM type 2 (diabetes mellitus, type 2) Status: Chronic (5) Gout Status: Chronic (6) Hx-Penicillin Allergy Status: Chronic (7) Hypertension Nos Status: Chronic (8) Inguinal hernia Status: Chronic (9) Pure Hypercholesterolem Status: Chronic (10) Thyroid nodule Status: Chronic Surgical Problems: (1) H/O colonoscopy Permanent Comment: 06/23/10- polyp x1- adenomatous tissue, internal hemorrhoids 08/09/13- one 5 mm polyp in descending colon- tubular adenoma Status: Chronic (2) S/P cataract surgery Status: Chronic (3) s/p cyst removal from chest Status: Chronic (4) Hx of cardiac catheterization in 1999 at [facility] Family History FH: CAD (coronary artery disease) FATHER (dief of MD age 53) MOTHER ( of MD age 91) BROTHER ( of MD age 21) FH: diabetes mellitus FATHER DAUGHTER SISTER Social History Smoking Status: Never Smoker Smokeless Tobacco Use: No Alcohol Use: none Drug Use: none Marital Status: Housing status: lives with family Occupational Status: retired Multi-Drug Resistant Organisms History of MDRO: No Allergies Coded Allergies: Sulfamethoxazole w/Trimethoprim (Verified Allergy, Mild, RASH, 11/20/16) Penicillins (Verified Allergy, Unknown, 11/20/16) Home Medications Scheduled Allopurinol (Zyloprim), 300 MG PO QAM Aspirin (Aspirin 81), 81 MG PO QAM Finasteride (Proscar), 5 MG PO HS Glipizide (Glucotrol), 5 MG PO BIDM Lisinopril (Zestril), 10 MG PO QPM Metoprolol Succ (Toprol Xl) (Toprol-Xl ), 100 MG PO HS Simvastatin (Zocor), 20 MG PO HS Tamsulosin Hcl (Flomax), 0.4 MG PO QPM Scheduled PRN Lactobacillus-Inulin (Culturelle), 1 CAP PO DAILY PRN for Diarrhea Nitroglycerin (Nitrostat), 0.4 MG UT UD PRN for Chest Pain Saline (Caberfae Nasal Veblen), 1 SPRAY EMI TID PRN for nasal congestion or dryness Review of Systems A total of 12 systems was reviewed and is negative other than as listed above in the HPI Physical Ex - H&P Physical Exam Vital Signs Date Time Temp Pulse Resp B/P (MAP) Pulse Ox O2 Delivery O2 Flow Rate FiO2 11/20/16 10:37 48 18 136/69 97 Room Air 11/20/16 09:47 92 Room Air 11/20/16 09:04 65 18 101/57 92 Room Air 11/20/16 08:59 66 20 116/68 92 Room Air 11/20/16 08:52 66 20 107/64 93 Room Air 11/20/16 08:46 66 18 118/64 94 Room Air 11/20/16 08:35 62 18 128/65 95 Room Air 11/20/16 08:21 59 11/20/16 08:10 97 Room Air 11/20/16 08:10 37.0 61 20 119/60 97 Room Air 11/20/16 08:10 95 Room Air General - NAD. present Eyes - No icterus, gaze conjugate. PERRL ENT - Mucosa moist, no lesions or candidiasis. Tongue midline Neck - Supple, No JVD. No bruits Lungs - No bronchospasm, rales, or rhonchi. Heart - Regular, rate controlled. No MGRs Chest - No reproducible chest pain. No evidence of trauma Back - Lipoma vs cyst just below right scapula. Non-tender. No erythema. No S/S of infection Abdomen - Soft, NT, ND, BS present. Truncal obesity. No rebound tenderness Extremities - No edema, pedal pulses intact Neuro - A&OX3 Diagnostics - H&P Diagnostics Laboratory Results Results Past 24 Hours Test 11/20/16 08:11/20/16 08:34 Range/Units White Blood Count 7.71 4.8-10.8 K/uL Red Blood Count 5.75 4.7-6.1 M/uL Hemoglobin 17.0 14.0-18.0 g/dL Hematocrit 50.5 42-52 % Mean Corpuscular Volume 87.8 80-100 fL Mean Corpuscular Hemoglobin 29.6 25-34 pg Mean Corpuscular Hemoglobin Concent 33.7 32-36 g/dl Platelet Count 123 130-400 K/uL Mean Platelet Volume 9.4 7.4-10.4 fL Neutrophils (%) (Auto) 70.5 % Lymphocytes (%) (Auto) 17.9 % Monocytes (%) (Auto) 6.0 % Eosinophils (%) (Auto) 4.5 % Basophils (%) (Auto) 0.6 % Neutrophils # (Auto) 5.43 1.4-6.5 K/uL Lymphocytes # (Auto) 1.38 1.2-3.4 K/uL Monocytes # (Auto) 0.46 0.11-0.59 K/uL Eosinophils # (Auto) 0.35 0-0.5 K/uL Basophils # (Auto) 0.05 0-0.2 K/uL RDW Standard Deviation 44.7 36.4-46.3 fL RDW Coefficient of Variation 13.9 11.5-14.5 % Immature Granulocyte % (Auto) 0.5 % Immature Granulocyte # (Auto) 0.04 0.00-0.02 K/uL Sodium Level 141 136-145 mmol/L Potassium Level 4.1 3.5-5.1 mmol/L Chloride Level 105 98-107 mmol/L Carbon Dioxide Level 26 21-32 mmol/L Anion Gap 10.0 3-11 mmol/L Blood Urea Nitrogen 17 7-18 mg/dl Creatinine 1.10 0.60-1.40 mg/dl Est Creatinine Clear Calc Drug Dose 73.2 ml/min Estimated GFR () 76.2 Estimated GFR (Non- 65.8 BUN/Creatinine Ratio 15.5 10-20 Random Glucose 220 70-99 mg/dl Calcium Level 8.3 8.5-10.1 mg/dl Total Bilirubin 0.6 0.2-1 mg/dl Direct Bilirubin 0.2 0-0.2 mg/dl Aspartate Amino Transf (AST/SGOT) 21 15-37 U/L Alanine Aminotransferase (ALT/SGPT) 34 12-78 U/L Alkaline Phosphatase 62 45-117 U/L Total Creatine Kinase 97 39-308 U/L Creatine Kinase MB 2.2 0.5-3.6 ng/ml Creatine Kinase MB Ratio 2.3 0-3.0 Total Protein 6.1 6.4-8.2 gm/dl Albumin 3.3 3.4-5.0 gm/dl Lipase 209 73-393 U/L Bedside Troponin I < 0.030 0-0.045 ng/ml Diagnostic Radiology CHEST ONE VIEW PORTABLE CLINICAL HISTORY: CHEST PAIN dyspnea COMPARISON STUDY: 04/22/2015 FINDINGS: The bones soft tissues and hemidiaphragms are normal. The cardiomediastinal silhouette is normal. The lungs are clear. The pulmonary vasculature is normal. IMPRESSION: Negative chest. Electronically signed by: Lance Turner M.D. 11/20/2016 9:05 AM EKG Vent. rate 60 BPM NH interval 244 ms QRS duration 88 ms QT/QTc 414/414 ms P-R-T axes 22 30 8 Sinus rhythm with 1st degree A-V block with occasional Premature ventricular complexes Otherwise normal ECG When compared with ECG of 21-APR-2015 09:30, Premature ventricular complexes are now Present NH interval has increased Confirmed by CEM ALEXIS ([id number]) on 11/20/2016 11:13:37 AM Impression - H&P Impression Assessment and Plan CHEST PAIN History of multivessel non-occlusive disease evaluated by cardiac catheterization in 1999 at [facility] No recent echocardiograms Does not follow with cardiology ASA recently reduced to 81 mg PO Daily EKG with new 1st degree AV block. No ST changes Troponin < 0.03 Electrolytes balanced Admit to telemetry for observation Heparin sub q every 8 hours Check echocardiogram Follow serial enzymes COAGULOPATHY INR 1.3 No outpatient anticoagulation LFTs within normal limits Repeat labs in the morning Hx CAD Continue Metoprolol Succinate, Simvastatin, Lisinopril, and ASA Follow on telemetry GERD Undiagnosed Hx consistent with dyspepsia Also with question of dysphagia Start Pantoprazole 40 mg PO Daily Swallow evaluation Outpatient workup for GERD DM TYPE II Hold Glipizide while inpatient and start Novolog SSI BPH Tamsulosin Finasteride GOUT Continue allopurinol DVT PROPHYLAXIS Heparin SQ TID Please refer to Dr. Villanueva's addendum for further recommendations Attending Addendum: The patient was seen and examined Lower central chest/epigastric pain after food today Not like the pain of his heart attack No associated symptoms of SOB,sweating.nausea and or vomiting Relieved with nitro to some wxtent O/E Heent- negative Hemodynamically stable Chest-clear to auscultate bilaterally Heart-regular,no murmur appreciated Labs and Imaging studies were reviewed. Remains asymptomatic Atypical CP-doubt any ACS Likely Reflux disease Agree with the assessment and plan. Dr Milton Villanueva Level of Care Telemetry Advanced Directives Existing Living Will: No Existing Power of Bottling Line Operator: No Resuscitation Status FULL RESUSCITATION VTE Prophylaxis VTE Risk Assessment Done? Y/N: Yes Risk Level: Low Given or contraindicated: Unfractionated heparin SQ Social Service Consult None Apply Physical Exam (per Admitting): General - NAD. present Eyes - No icterus, gaze conjugate. PERRL ENT - Mucosa moist, no lesions or candidiasis. Tongue midline Neck - Supple, No JVD. No bruits Lungs - No bronchospasm, rales, or rhonchi. Heart - Regular, rate controlled. No MGRs Chest - No reproducible chest pain. No evidence of trauma Back - Lipoma vs cyst just below right scapula. Non-tender. No erythema. No S/S of infection Abdomen - Soft, NT, ND, BS present. Truncal obesity. No rebound tenderness Extremities - No edema, pedal pulses intact Neuro - A&OX3 Hospital Course CHEST PAIN History of multivessel non-occlusive disease evaluated by cardiac catheterization in 1999 at [facility] ASA recently reduced to 81 mg PO Daily EKG with new 1st degree AV block. No ST changes Troponin < 0.03 and Serial CE were unremarkable Check echocardiogram::The left ventricle is normal in size. * Left ventricular systolic function is normal. * Focal thickening of the basal septum with no evidence of left ventricular outflow obstruction. * The left ventricular wall motion is normal. * Ejection Fraction = 60-65%. * Aortic valve sclerosis moderate, without significant aortic valvular stenosis. * The aortic root is normal size. * There is no pericardial effusion. Symptoms resolved Ready to be discharged Will need OP cardiology follow up COAGULOPATHY INR 1.3 No outpatient anticoagulation LFTs within normal limits Repeat labs in the morning Hx CAD Continue Metoprolol Succinate, Simvastatin, Lisinopril, and ASA Follow on telemetry GERD Undiagnosed Hx consistent with dyspepsia Also with question of dysphagia Start Pantoprazole 40 mg PO Daily Symptomatically a lot better with PPI Will continue at discharge DM TYPE II Hold Glipizide while inpatient and start Novolog SSI BPH Tamsulosin Finasteride GOUT Continue allopurinol DVT PROPHYLAXIS Heparin SQ TID DISPOSITION Discharged today Total time spent on discharge = 35 minutes This includes examination of the patient, discharge planning, medication reconciliation, and communication with other providers. Discharge Instructions Date of Service Nov 21, 2016. Admission Reason for Admission: Chest Pain Discharge Discharge Diagnosis / Problem: Atypical Chest pain, GERD Discharge Goals Goal(s): Prevent Disease Progression Activity Recommendations Activity Limitations: resume your previous activity . Instructions / Follow-Up Instructions / Follow-Up Your doctor's office will call with appointment,Please keep regular cardiology appointment Current Hospital Diet Patient's current hospital diet: AHA Diet (Heart Healthy), Diabetes Type 2 Diet Discharge Diet Recommended Diet: AHA Diet (Heart Healthy), Diabetes Type 2 Diet Pending Studies Studies pending at discharge: no Laboratory Results Hemoglobin A1c Test 11/21/16 05:15 Range/Units Medical Emergencies . Who to Call and When: Medical Emergencies: If at any time you feel your situation is an emergency, please call 911 immediately. . Non-Emergent Contact Non-Emergency issues call your: Primary Care Provider . Past History Medical & Surgical History: (1) Dyspepsia (2) GERD (gastroesophageal reflux disease) (3) Chest pain (4) CAD (coronary artery disease) (5) Hypertension Nos (6) DM type 2 (diabetes mellitus, type 2) (7) Gout (8) BPH (benign prostatic hypertrophy) (9) S/P cataract surgery (10) s/p cyst removal from chest (11) H/O colonoscopy . "Provider Documentation" section prepared by Clifford Villanueva. . VTE Core Measure Inpt VTE Proph given/why not?: Unfractionated heparin SQ <Electronically signed by Cliffodr Villanueva M.D.> Additional Copies To Chacho Babin MD
[2016-11-22 08:10] LABS: ESTIMATED AVERAGE GLUCOSE 140 mg/dl; HA1C FLAG Normal (Normal)
== END 2016-11-21 09:45 | disposition home or self-care (01) ==
LOC: C.EDB 07:59 → C.MED 11:05 → ENRESERV 11:30
PROVIDERS: ADMIT Internal Medicine; ATTEND Internal Medicine
DX: R07.89 Other chest pain (principal); K21.9 Gastro-esophageal reflux disease without esophagitis; I25.10 Atherosclerotic heart disease of native coronary artery without angina pectoris; E11.9 Type 2 diabetes mellitus without complications; I10 Essential (primary) hypertension; E78.00 Pure hypercholesterolemia, unspecified; Z98.49 Cataract extraction status, unspecified eye; I25.2 Old myocardial infarction; Z98.890 Other specified postprocedural states; Z79.82 Long term (current) use of aspirin; Z88.2 Allergy status to sulfonamides; Z88.0 Allergy status to penicillin; Z82.49 Family history of ischemic heart disease and other diseases of the circulatory system; Z83.3 Family history of diabetes mellitus

== ENCOUNTER → 2017-08-30 | Outpatient (CLI) | payer BC ==
[~2017-08-30] MED LIST changes: +ASPI-435 PO; -ASPI325T39 PO; -MRLP17X PO; +PRT40 PO
== END | disposition home or self-care (01) ==
LOC: C.LAB 06:52
PROVIDERS: ATTEND Urology
DX: N40.0 Benign prostatic hyperplasia without lower urinary tract symptoms (principal)

== ENCOUNTER → 2018-01-19 | Outpatient (CLI) | payer BC ==
[~2018-01-19] MED LIST changes: +PANT1TAB4 PO; -PRT40 PO
== END | disposition home or self-care (01) ==
LOC: C.LAB 06:47
PROVIDERS: ATTEND Urology
DX: N40.1 Benign prostatic hyperplasia with lower urinary tract symptoms (principal)

== ENCOUNTER → 2018-01-25 | Outpatient (CLI) | payer BC ==
--- NOTE | 2018-01-25 10:00 | DIAGNOSTIC IMAGING REPORT ---
ABDOMEN COMPLETE (US) CLINICAL HISTORY: Abdominal pain. COMPARISON STUDY: Right upper quadrant ultrasound March 27, [address] of the abdomen and pelvis April 21, 2015. FINDINGS: Heterogeneity of the liver is unchanged since previous ultrasound of July 28, 2006. Innumerable cysts/biliary hamartomas within the liver are noted. There is no biliary ductal dilatation. The pancreas is obscured by overlying bowel gas. The size of the spleen is at the upper limits of normal. The gallbladder is normal. There are no gallstones. Caliber of the abdominal aorta is normal. There is no hydronephrosis. There is moderate bilateral renal cortical thinning with a few small renal cysts. There is no ascites. IMPRESSION: 1. No gallstones or biliary ductal dilatation. 2. No change in heterogeneity of the liver parenchyma which is likely due to innumerable cysts or biliary hamartomas. Cirrhosis could appear similar. 3. No hydronephrosis. 4. Normal caliber abdominal aorta. Electronically signed by: Wallace Leal M.D. 01/25/2018 9:58 AM Dictated Date/Time: 01/25/2018 9:55 AM
== END | disposition home or self-care (01) ==
LOC: C.ULTRBC 09:10
PROVIDERS: ATTEND Internal Medicine Gastroenterology
DX: R10.9 Unspecified abdominal pain (principal); R07.9 Chest pain, unspecified

== ENCOUNTER 2020-01-17 17:25 | Observation (INO) ==
[2020-01-17] MEDS ORDERED: ASPIRIN CHEW 324 MG PO STA (17:37)
--- NOTE | 2020-01-17 17:41 | Emergency Department Note ---
History of Present Illness General Chief Complaint: Chest Pain Stated Complaint: CHEST PAIN Time Seen by Provider: 01/17/20 17:31 History of Present Illness Provider Complaint: chest pain Onset (ago): hour(s) 2 Duration: improved Onset: during rest Pain Location: substernal Pain Radiation: other (Right and left chest) Severity: moderate Current Pain Intensity: 0 Quality: + heaviness Relieved By: + nitroglycerin (2 sublingual nitro) Exacerbated By: + nothing Context: no recent surgery, no recent immobilization, no trauma/injury, no new medications and no history of DVT/PE Associated symptoms: + dyspnea; no nausea, no syncope, no palpitations and no cough Home Medications Home Medications Medication Instructions Recorded Confirmed Type Probiotic Complex 1 cap PO UD PRN 02/02/18 01/17/20 History allopurinol 300 mg PO QAM 02/02/18 01/17/20 History aspirin 81 mg PO QAM 02/02/18 01/17/20 History glipizide 5 mg PO BID 02/02/18 01/17/20 History nitroglycerin [Nitrostat] 1 tab SUBLINGUAL DIRECTED PRN 02/02/18 01/17/20 History simvastatin 20 mg PO HS 02/02/18 01/17/20 History tamsulosin [Flomax] 0.4 mg PO QPM 02/02/18 01/17/20 History anastrozole 1 mg tablet 1 mg PO DAILY 04/05/19 01/17/20 History leuprolide 7.5 mg intramuscular 7.5 mg IM MONTHLY ea 04/05/19 01/17/20 History syringe kit lisinopril 5 mg PO DAILY 01/17/20 01/17/20 History meloxicam [Mobic] 15 mg PO DAILY PRN 01/17/20 01/17/20 History metformin [Glucophage] 500 mg PO DAILY 01/17/20 01/17/20 History metoprolol succinate [Toprol XL] 100 mg PO HS 01/17/20 01/17/20 History Allergies Allergy/AdvReac Type Severity Reaction Status Date / Time Bactrim Allergy Mild RASH Verified 11/01/17 11:02 sulfamethoxazole Allergy Mild RASH Verified 01/17/20 19:32 trimethoprim Allergy Mild RASH Verified 01/17/20 19:32 Penicillins Allergy Unknown Unknown Verified 01/17/20 19:32 Past Med/Surg History Medical History (Updated 01/17/20 @ 22:55 by Dion Orellana) Anemia BPH (benign prostatic hyperplasia) Breast cancer in male Right Breast - Diagnosed 03/09/18 - Invasive Ductal ER/NV+, HER2- Now with recurrence CAD (coronary artery disease) "s/p acute inferolateral ID 1999 treated with thrombolytic therapy Cardiac cath in 1999 - moderate nonocclusive atherosclerotic coronary disease all 3 vessels with significant lesion 50% narrowing right coronary artery, occlusive lesion origin 1st diagonal. Preserved LV function." Diabetes mellitus, type II DM type 2 (diabetes mellitus, type 2) on Glipizide GERD (gastroesophageal reflux disease) Gout Hyperlipidemia Hypertension Myocardial Infarction 1999 Osteoarthritis Temporary low platelet count History of Thyroid nodule BIOPSY AND BEING MONITORED Surgical History H/O colonoscopy "06/23/10- polyp x1- adenomatous tissue, internal hemorrhoids 08/09/13- one 5 mm polyp in descending colon- tubular adenoma" History of cardiac cath 1999 History of cataract surgery Early 1999' History of lumpectomy of right breast 04/25/18, 03/06/19 History of tooth extraction 2013 Family History Mother , Passed age 91 of [place] No problems noted. Father , Passed age 53 of [place] No problems noted. Brother No problems noted. Brother No problems noted. Brother Prostate cancer, Onset Age: 50 attributes to agent orange Brother , Passed age 19 of ID No problems noted. Brother , Passed age 33 of Brain Aneurysm No problems noted. Sister No problems noted. Sister No problems noted. Sister No problems noted. Son No problems noted. Son Myocardial infarction, Onset Age: 38 Daughter No problems noted. 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 Other Information That Helps Us Care for You: No Feels Safe at Home: Yes Safety Concerns: Feels Safe At This Time Childhood Exposure to Second-Hand Smoke: Yes caffeine: Yes (2 Cups of Coffee/day) during the past year weight has: remained stable Dental Care, Regularly: Yes Review of Systems A total of 10 systems reviewed and were otherwise negative Physical Exam Vital Signs Vital Signs - 24 hr 01/17/20 17:26 01/17/20 17:45 01/17/20 17:50 Temperature 36.7 C Temperature Source Oral Pulse Rate 59 L 59 L 54 L Pulse Rate from SpO2 Sensor 53 L Pulse Rhythm Regular Respiratory Rate 18 18 20 Blood Pressure 118/69 120/59 L Blood Pressure Mean 85 81 Pulse Oximetry 98 98 97 Oxygen Delivery Method Room Air Room Air Room Air Sepsis Recent Fever Within 48 Hours No Sepsis New/Unexplained Change in Mental Status No Sepsis Action Taken by Nursing No Action Required 01/17/20 18:00 01/17/20 18:30 01/17/20 19:00 Temperature Temperature Source Pulse Rate 51 L 51 L 47 L Pulse Rate from SpO2 Sensor 51 L 51 L 47 L Pulse Rhythm Respiratory Rate 18 14 13 Blood Pressure 121/62 126/63 120/61 Blood Pressure Mean 77 77 80 Pulse Oximetry 97 100 98 Oxygen Delivery Method Room Air Room Air Room Air Sepsis Recent Fever Within 48 Hours Sepsis New/Unexplained Change in Mental Status Sepsis Action Taken by Nursing Physical Exam GENERAL: He is oriented to person, place, and time. He appears well-developed and well-nourished. He does not appear distressed. HENT: Exam performed. - Head: Normocephalic and atraumatic. - Right Ear: External ear normal. No mastoid tenderness. - Left Ear: External ear normal. No mastoid tenderness. - Mouth/Throat: The oropharynx is clear and moist. No trismus in the jaw. No dental abscesses or uvula swelling. No oropharyngeal exudate or tonsillar abscesses. EYES: Conjunctivae and EOM are normal. Pupils are equal, round, and reactive to light. Right eye exhibits no discharge. Left eye exhibits no discharge. No scleral icterus. NECK: Normal range of motion. Neck supple. No JVD present. No spinous process tenderness present. No carotid bruit present. No rigidity. No tracheal deviation and normal range of motion present. No Brudzinski's sign and no Kernig's sign noted. CV: Normal rate, regular rhythm, normal heart sounds and intact distal pulses. There is no peripheral edema. Palpable radial pulses bue. PULM/CHEST: Effort normal and breath sounds normal. No respiratory distress. No stridor. He has no wheezes. He has no rales. ABD: The abdomen is soft. Bowel sounds are normal. He has no distension. No mass is present. There is no tenderness. There is no rebound, no guarding, no Lopez's sign and no tenderness at McBurney's point. Rovsig negative. MUSC/SKEL: Normal range of motion. There is no peripheral edema, tenderness or deformity. LYMPH: No cervical adenopathy. NEURO: He is alert and oriented to person, place, and time. He has normal strength. No cranial nerve deficit or sensory deficit. Coordination and gait normal. GCS eye subscore is 4. GCS verbal subscore is 5. GCS motor subscore is 6. Cerebellar tests wnl. SKIN: Skin is warm and dry. He is not diaphoretic. PSYCH: He has a normal mood and affect. Behavior is normal. Judgment and thought content normal. Course Course 1731: The patient was evaluated in room A11. A complete history and physical exam was performed. Cardiac monitoring: An order was placed for continuous cardiac monitoring. The monitor shows a rate of 60 with sinus rhythm 1830: Vital signs stable. Labs and imaging within normal limits. Patient will be admitted for chest pain rule out ACS given his other comorbidities and chest pain that resolved with sublingual nitroglycerin. Administered Medications Nitroglycerin (Nitroglycerin Sl 0.4 Mg/Tab Tab) 0.4 mg SL UD PRN PRN Reason: Chest Pain Stop: 02/16/20 21:28 Last Admin: 01/17/20 22:19 Dose: 0.4 mg Documented by: [id number] Discontinued Medications Aspirin (Aspirin Chew 324 Mg) 324 mg PO NOW STA Stop: 01/17/20 17:38 Last Admin: 01/17/20 18:01 Dose: 324 mg Documented by: [id number] Medical Decision Making Laboratory Data Result diagrams: 01/17/20 17:50 01/17/20 17:50 Labs: Lab Results 01/17/20 01/17/20 01/17/20 Range/Units 17:50 17:50 17:50 WBC 6.79 (4.8-10.8) K/uL RBC 4.83 (4.7-6.1) M/uL Hgb 14.4 (14.0-18.0) g/dL Hct 42.8 (42-52) % MCV 88.6 (80-100) fL MCH 29.8 (25-34) pg MCHC 33.6 (32-36) g/dL RDW Std Deviation 45.0 (36.4-46.3) fL RDW Coeff of Purnima 13.8 (11.5-14.5) % Plt Count 110 L (130-400) K/uL MPV 9.1 (7.4-10.4) fL Immature Gran % (Auto) 0.3 % Neut % (Auto) 60.6 % Lymph % (Auto) 25.3 % [place] % (Auto) 7.1 % Eos % (Auto) 6.0 % Baso % (Auto) 0.7 % Neut # (Auto) 4.11 (1.4-6.5) K/uL Lymph # (Auto) 1.72 (1.2-3.4) K/uL [place] # (Auto) 0.48 (0.11-0.59) K/uL Eos # (Auto) 0.41 (0-0.5) K/uL Baso # (Auto) 0.05 (0-0.2) K/uL Immature Gran # (Auto) 0.02 (0.00-0.02) K/uL PT 10.7 (9.0-12.0) Seconds INR 1.0 (0.9-1.1) APTT 24.7 (21.0-31.0) Seconds PTT Ratio 0.9 D-Dimer 500 (0-500) ug/L FEU Sodium 140 (136-145) mmol/L Potassium 3.9 (3.5-5.1) mmol/L Chloride 108 H (98-107) mmol/L Carbon Dioxide 26 (21-32) mmol/L Anion Gap 6.0 (3-11) BUN 20 H (7-18) mg/dl Creatinine 1.08 (0.6-1.4) mg/dl Est Cr Clr Drug Dosing 70.5 ml/min Est GFR ( Amer) 76.3 Est GFR (Non-Af Amer) 65.9 BUN/Creatinine Ratio 18.8 (10-20) Glucose 149 H (70-99) mg/dl Calcium 9.6 (8.5-10.1) mg/dl Total Bilirubin 0.4 (0.2-1) mg/dl AST 17 (15-37) U/L ALT 28 (12-78) U/L Alkaline Phosphatase 73 (45-117) U/L Troponin I < 0.015 (0-0.045) ng/ml Total Protein 6.3 L (6.4-8.2) gm/dl Albumin 3.6 (3.4-5.0) gm/dl Globulin 2.7 (2.5-4.0) gm/dl Albumin/Globulin Ratio 1.3 (0.9-2) Lipase 204 (73-393) U/L Imaging Data Chest x-ray: Radiologist's impression: XR chest 1V portable HISTORY: Atypical Chest Pain COMPARISON: Chest 11/20/2016. FINDINGS: The lungs are clear. Cardiac silhouette is normal in size. No pleural effusions. No pneumothorax. IMPRESSION: No acute process. ACT 112: Negative or not required by law. Electronically signed by: Junior Foster M.D. 01/17/2020 6:02 PM Dictated: 01/17/201800 Transcribed: 01/17/201800 ECG Data Indication: chest pain Rate (beats per minute): 51 Rhythm: sinus bradycardia Findings: + 1st degree AV block; no ST depression, no ST elevation and no pro longed QT MDM Narrative Vital signs stable. Labs and imaging within normal limits. Patient will be admitted for chest pain rule out ACS given his other comorbidities and chest pain that resolved with sublingual nitroglycerin. Impression & Plan Chest pain Discharge Plan Visit Data Chief Complaint: Chest Pain Stated Complaint: CHEST PAIN ED Provider: Dion Orellana Discharge Problem: Chest pain Patient Disposition: Admitted As Inpatient Discharge Instructions Interventions: ED Discharge Assessment Last Done: 01/17/20 20:31 Discharge Problem: Chest pain Qualifiers: Chest pain type: unspecified Qualified Code(s): R07.9 - Chest pain, unspecified
[2020-01-17 17:58] LABS: Basophils # (auto) 0.05 K/uL (0-0.2); Basophils % (auto) 0.7 %; Eosinophils # (auto) 0.41 K/uL (0-0.5); Hematocrit (blood only) 42.8 % (42-52); Hemoglobin 14.4 g/dL (14.0-18.0); Immature Granulocytes # (auto) 0.02 K/uL (0.00-0.02); Immature Granulocytes % (auto) 0.3 %; Lymphocytes # (auto) 1.72 K/uL (1.2-3.4); Lymphocytes % (auto) 25.3 %; Mean Corpuscular Hemoglobin 29.8 pg (25-34); Mean Corpuscular Hgb Conc 33.6 g/dL (32-36); Mean Corpuscular Volume 88.6 fL (80-100); Mean Platelet Volume 9.1 fL (7.4-10.4); Monocytes # (auto) 0.48 K/uL (0.11-0.59); Monocytes % (auto) 7.1 %; Neutrophils # (auto) 4.11 K/uL (1.4-6.5); Neutrophils % (auto) 60.6 %; Platelet Count 110 K/uL (130-400); RDW Coefficient of Variation 13.8 % (11.5-14.5); Red Blood Count 4.83 M/uL (4.7-6.1); White Blood Count 6.79 K/uL (4.8-10.8)
--- NOTE | 2020-01-17 18:03 | XRay Report ---
XR chest 1V portable HISTORY: Atypical Chest Pain COMPARISON: Chest 11/20/2016. FINDINGS: The lungs are clear. Cardiac silhouette is normal in size. No pleural effusions. No pneumot horax. IMPRESSION: No acute process. ACT 112: Negative or not required by law. Electronically signed by: Junior Foster M.D. 01/17/2020 6:02 PM
[2020-01-17 18:10] LABS: D Dimer 500 ug/L FEU (0-500); Partial Thromboplastin Ratio 0.9; Partial Thromboplastin Time 24.7 Seconds (21.0-31.0); Prothrombin Time 10.7 Seconds (9.0-12.0)
[2020-01-17 18:14] LABS: Albumin Level 3.6 gm/dl (3.4-5.0); Aspartate Aminotransferase 17 U/L (15-37); BUN Creatinine Ratio 18.8 (10-20); Blood Urea Nitrogen 20 mg/dl (7-18); Calcium 9.6 mg/dl (8.5-10.1); Carbon Dioxide 26 mmol/L (21-32); Chloride 108 mmol/L (98-107); Creatinine Clr Calc Pharmacy 70.5 ml/min; Est GFR (African American) 76.3; Est GFR (Non-African American) 65.9; Glucose 149 mg/dl (70-99); Lipase 204 U/L (73-393); Potassium 3.9 mmol/L (3.5-5.1); Sodium 140 mmol/L (136-145)
[2020-01-17 18:19] LABS: Alanine Aminotransferase 28 U/L (12-78); Albumin Globulin Ratio 1.3 (0.9-2); Alkaline Phosphatase 73 U/L (45-117); Bilirubin,Total 0.4 mg/dl (0.2-1); Globulin 2.7 gm/dl (2.5-4.0); Total Protein 6.3 gm/dl (6.4-8.2); Troponin I < 0.015 ng/ml (0-0.045)
--- NOTE | 2020-01-17 20:13 | History & Physical Report ---
Date of Service January 17, 2020 Assessment & Plan (1) Chest pain: This is a 79-year-old male with PMH of CAD, DM II, HTN, HLD, and breast cancer on anastrozole who presents with chest pain starting this afternoon. -Burning central chest pain x 1 week, worsened today but resolved after 2 sl ntg -Follows with Dr. Hernandez for cardiology. Has history of inferolateral OK in 1999 that was treated with thrombolytic therapy at [facility] -Cardiac cath in 1999 with moderate nonocclusive atherosclerotic coronary disease with all 3 vessels with significant lesion 50% narrowing right coronary artery, occlusive lesion origin 1st diagonal -EKG with 1st degree AV block. Initial troponin negative. CXR with no acute process -Monitor on telemetry. Trend troponin. Continue aspirin, statin. Repeat a1c pending. Routine cardiology consult. NPO after midnight (2) CAD (coronary artery disease): Cont medical management per home regimen including Toprol XL (noted bradycardia-titrate dose per Cardiology), lisinopril, ASA 81mg daily and simvastatin 20mg PO qHS. (3) Hypertension: Continue lisinopril, Toprol-XL (4) Diabetes mellitus, type II: Last A1c October 2017 6.4. Repeat ordered -Hold home agents -SSI while in-patient -BSG AC HS (5) Cancer of right male breast: Status post resection x2. Continue anastrozole, monthly Lupron injections. Follows with [facility] (6) BPH (benign prostatic hyperplasia): Continue Flomax DVT Ppx: SQ heparin Code status: FULL PCP: Tyler Dispo: Observe in PCU overnight. Plan to return home once medically stable. Patient seen in collaboration with Dr. Dhillon. Please see addendum. History of Present Illness Chief Complaint: Chest pain Primary Care Provider: Patel Scott MD This is a 79-year-old male with PMH of CAD, DM II, HTN, HLD, and breast cancer on anastrozole who presents with chest pain starting this afternoon. Patient states he has been having indigestion for the past week that resolved after drinking a emiliana stefano. Had more significant indigestion this afternoon that was not resolved even after 3 emiliana stefano's. Describes chest pain as centralized and burning. Nonradiating. Not associated with shortness of breath, nausea vomiting. Took 2 sublingual nitroglycerin prior to arrival and chest pain completely resolved. Has not recurred. Follows with Dr. Hernandez for cardiology. Has history of inferolateral [place] in 1999 that was treated with thrombolytic therapy at [facility]. Underwent cardiac cath at that time which revealed moderate nonocclusive atherosclerotic coronary disease with all 3 vessels with significant lesion 50% narrowing right coronary artery, occlusive lesion origin 1st diagonal. Exercise stress echo from 2018 without inducible ischemia. Currently feeling well. Denies any fever, chills, lightheadedness, visual changes, chest pain, palpitations, shortness of breath, wheezing, nausea, vomiting, abdominal pain, dysuria, diarrhea constipation. Allergies Allergy/AdvReac Type Severity Reaction Status Date / Time Bactrim Allergy Mild RASH Verified 11/01/17 11:02 sulfamethoxazole Allergy Mild RASH Verified 01/17/20 19:32 trimethoprim Allergy Mild RASH Verified 01/17/20 19:32 Penicillins Allergy Unknown Unknown Verified 01/17/20 19:32 Home Medications Home Medications Medication Instructions Recorded Confirmed Type Probiotic Complex 1 cap PO UD PRN 02/02/18 01/17/20 History allopurinol 300 mg PO QAM 02/02/18 01/17/20 History aspirin 81 mg PO QAM 02/02/18 01/17/20 History glipizide 5 mg PO BID 02/02/18 01/17/20 History nitroglycerin [Nitrostat] 1 tab SUBLINGUAL DIRECTED PRN 02/02/18 01/17/20 History simvastatin 20 mg PO HS 02/02/18 01/17/20 History tamsulosin [Flomax] 0.4 mg PO QPM 02/02/18 01/17/20 History anastrozole 1 mg tablet 1 mg PO DAILY 04/05/19 01/17/20 History leuprolide 7.5 mg intramuscular 7.5 mg IM MONTHLY ea 04/05/19 01/17/20 History syringe kit lisinopril 5 mg PO DAILY 01/17/20 01/17/20 History meloxicam [Mobic] 15 mg PO DAILY PRN 01/17/20 01/17/20 History metformin [Glucophage] 500 mg PO DAILY 01/17/20 01/17/20 History metoprolol succinate [Toprol XL] 100 mg PO HS 01/17/20 01/17/20 History Past Med/Surg History Medical History Anemia BPH (benign prostatic hyperplasia) Breast cancer in male Right Breast - Diagnosed 03/09/18 - Invasive Ductal ER/SD+, HER2- Now with recurrence CAD (coronary artery disease) "s/p acute inferolateral OK 1999 treated with thrombolytic therapy Cardiac cath in 1999 - moderate nonocclusive atherosclerotic coronary disease all 3 vessels with significant lesion 50% narrowing right coronary artery, occlusive lesion origin 1st diagonal. Preserved LV function." Diabetes mellitus, type II DM type 2 (diabetes mellitus, type 2) on Glipizide GERD (gastroesophageal reflux disease) Gout Hyperlipidemia Hypertension Myocardial Infarction 1999 Osteoarthritis Temporary low platelet count History of Thyroid nodule BIOPSY AND BEING MONITORED Surgical History H/O colonoscopy "06/23/10- polyp x1- adenomatous tissue, internal hemorrhoids 08/09/13- one 5 mm polyp in descending colon- tubular adenoma" History of cardiac cath 1999 History of cataract surgery Early 1999' History of lumpectomy of right breast 04/25/18, 03/06/19 History of tooth extraction 2013 Family History Mother , Passed age 91 of [place] No problems noted. Father , Passed age 53 of [place] No problems noted. Brother No problems noted. Brother No problems noted. Brother Prostate cancer, Onset Age: 50 attributes to agent orange Brother , Passed age 19 of [place] No problems noted. Brother , Passed age 33 of Brain Aneurysm No problems noted. Sister No problems noted. Sister No problems noted. Sister No problems noted. Son No problems noted. Son Myocardial infarction, Onset Age: 38 Daughter No problems noted. 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 Physical Exam Physical Exam: General Appearance: WD/WN, vitals as above, NAD, sitting up in bed, pleasant, conversing easily Head: normocephalic, atraumatic Eyes: normal inspection, PERRL, conjunctivae normal, anicteric sclerae ENT: external ear and nose normal, oropharynx normal Neck: trachea midline, no thyromegaly normal visual inspection Respiratory: normal respiratory effort, lungs clear to auscultation, no wheeze, rales, rhonchi. Normal insp/exp effort, no accessory muscle use Cardiovascular: regular rate, rhythm, no murmur, normal peripheral pulses. Vessels: no JVD Chest: normal inspection of chest, non-reproducible pain Abdomen/GI: normal bowel sounds, soft, nontender, no hepatosplenomegaly Extremities/Musculoskeletal: no cyanosis or clubbing, extremities motor streng th 10/08 Neurologic: PERRL, EOMI, CN's II-XI intact bilaterally and moves all extremities Psychiatric: A+Ox3, euthymic affect Skin: no rashes, normal color, warm/dry Results & Data Results & Data ([facility]) Vital Signs (Past 12 Hours) Vital Signs Temp Pulse Resp BP Pulse Ox 01/17/20 18:30 51 L 14 126/63 100 01/17/20 18:00 51 L 18 121/62 97 01/17/20 17:50 54 L 20 120/59 L 97 01/17/20 17:45 59 L 18 98 01/17/20 17:26 36.7 C 59 L 18 118/69 98 Laboratory Results Short CBC 01/17/20 01/17/20 01/17/20 Range/Units 17:50 17:50 17:50 WBC 6.79 (4.8-10.8) K/uL RBC 4.83 (4.7-6.1) M/uL Hgb 14.4 (14.0-18.0) g/dL Hct 42.8 (42-52) % MCV 88.6 (80-100) fL MCH 29.8 (25-34) pg MCHC 33.6 (32-36) g/dL RDW Std Deviation 45.0 (36.4-46.3) fL RDW Coeff of [place]urnima 13.8 (11.5-14.5) % Plt Count 110 L (130-400) K/uL MPV 9.1 (7.4-10.4) fL Immature Gran % (Auto) 0.3 % Neut % (Auto) 60.6 % Lymph % (Auto) 25.3 % [place] % (Auto) 7.1 % Eos % (Auto) 6.0 % Baso % (Auto) 0.7 % Neut # (Auto) 4.11 (1.4-6.5) K/uL Lymph # (Auto) 1.72 (1.2-3.4) K/uL [place] # (Auto) 0.48 (0.11-0.59) K/uL Eos # (Auto) 0.41 (0-0.5) K/uL Baso # (Auto) 0.05 (0-0.2) K/uL Immature Gran # (Auto) 0.02 (0.00-0.02) K/uL PT 10.7 (9.0-12.0) Seconds INR 1.0 (0.9-1.1) APTT 24.7 (21.0-31.0) Seconds PTT Ratio 0.9 D-Dimer 500 (0-500) ug/L FEU Sodium 140 (136-145) mmol/L Potassium 3.9 (3.5-5.1) mmol/L Chloride 108 H (98-107) mmol/L Carbon Dioxide 26 (21-32) mmol/L Anion Gap 6.0 (3-11) BUN 20 H (7-18) mg/dl Creatinine 1.08 (0.6-1.4) mg/dl Est Cr Clr Drug Dosing 70.5 ml/min Est GFR ( Amer) 76.3 Est GFR (Non-Af Amer) 65.9 BUN/Creatinine Ratio 18.8 (10-20) Glucose 149 H (70-99) mg/dl Calcium 9.6 (8.5-10.1) mg/dl Total Bilirubin 0.4 (0.2-1) mg/dl AST 17 (15-37) U/L ALT 28 (12-78) U/L Alkaline Phosphatase 73 (45-117) U/L Troponin I < 0.015 (0-0.045) ng/ml Total Protein 6.3 L (6.4-8.2) gm/dl Albumin 3.6 (3.4-5.0) gm/dl Globulin 2.7 (2.5-4.0) gm/dl Albumin/Globulin Ratio 1.3 (0.9-2) Lipase 204 (73-393) U/L BMP 01/17/20 17:50 Sodium 140 Potassium 3.9 Chloride 108 H Carbon Dioxide 26 BUN 20 H Creatinine 1.08 Glucose 149 H Calcium 9.6 Cardiac Enzymes 01/17/20 Range/Units 17:50 Troponin I < 0.015 (0-0.045) ng/ml Liver Function 01/17/20 Range/Units 17:50 Total Bilirubin 0.4 (0.2-1) mg/dl AST 17 (15-37) U/L ALT 28 (12-78) U/L Alkaline Phosphatase 73 (45-117) U/L Albumin 3.6 (3.4-5.0) gm/dl Diagnostic Findings CXR: IMPRESSION: No acute process. ECG Findings: + 1st degree AV block Change: no significant change Supervising Physician Co-Signing Physician Notes I have seen and examined the patient and have discussed the case with the provider above. I agree with the assessment and plan as stated. 79 yo M with known h/o CAD reports new onset of heartburn type symptoms-resolved with nitro. Trop negative, chest pain has resolved and not returned. There were no associated symptoms with chest pain. Pt not on GERD medications. Unremarkable physical exam as described above. EKG nonischemic, troponin is negative and all symptoms are currently resolved. In the setting of known h/o CAD and increased frequency of chest pain in recent weeks, agree with admission to rule out ACS overnight and consult cardiology for recommendations moving forward. Other risk factors include DMII and HTN, both well controlled chronic medical issues. He also is taking Leuprolide and anastrozole which both have OK as a possible side effect. Consider PPI at discharge. DO Alejo (1) Cancer of right male breast Breast location: central portion of breast Estrogen receptor status: positive Qualified Code(s): C50.121 - Malignant neoplasm of central portion of right male breast; Z17.0 - Estrogen receptor positive status [ER+]
[2020-01-17] MEDS ORDERED: GLUCAGON FOR INJ 1 MG VIAL SQ PRN (21:29)
[2020-01-17] MEDS ORDERED: DEXTROSE 50% 50 ML SYRINGE IV PRN (21:29)
[2020-01-17] MEDS ORDERED: POLYETHYLENE (MIRALAX) 17 GM PACK PO PRN (21:29)
[2020-01-17] MEDS ORDERED: NITROGLYCERIN SL 0.4 MG/TAB TAB SL PRN (21:29)
[2020-01-17] MEDS ORDERED: GLUCOSE 10 TABS/TUBE PO PRN (21:29)
[2020-01-17] MEDS ORDERED: MELOXICAM 7.5 MG TAB PO PRN (21:29)
[2020-01-17] MEDS ORDERED: CARBOHYDRATES FOR HYPOGLYCEMIA PO PRN (21:29)
[2020-01-17] MEDS ORDERED: GLUCOSE 40% GEL 15 GM TUBE PO PRN (21:29)
[2020-01-17] MEDS ORDERED: ACETAMINOPHEN 325 MG TAB PO PRN (21:29)
[2020-01-17] MEDS ORDERED: LACTOBACILLUS ACIDOPHILUS (FLORANEX) TAB PO PRN (22:05)
[2020-01-18] MEDS: INSULIN ASPART 100 UNITS/ML 3 ML PEN SC SCH ×3 (00:09→13:29)
[2020-01-18 05:50] LABS: Hematocrit (blood only) 42.4 % (42-52); Mean Corpuscular Hemoglobin 29.3 pg (25-34); Mean Corpuscular Volume 88.7 fL (80-100); Mean Platelet Volume 9.1 fL (7.4-10.4); Platelet Count 101 K/uL (130-400); RDW Coefficient of Variation 13.7 % (11.5-14.5); RDW Standard Deviation 44.6 fL (36.4-46.3); Red Blood Count 4.78 M/uL (4.7-6.1); White Blood Count 6.37 K/uL (4.8-10.8)
[2020-01-18 06:28] LABS: Blood Urea Nitrogen 17 mg/dl (7-18); Carbon Dioxide 29 mmol/L (21-32); Chloride 110 mmol/L (98-107); Creatinine Clr Calc Pharmacy 75.2 ml/min; Est GFR (African American) 91.5; Est GFR (Non-African American) 78.9; Glucose 117 mg/dl (70-99); Sodium 141 mmol/L (136-145)
[2020-01-18 06:29] LABS: Estimated Average Glucose 134 mg/dl; Hemoglobin A1C 6.3 % (4.5-5.6)
[2020-01-18 06:32] LABS: Troponin I < 0.015 ng/ml (0-0.045)
[2020-01-18] MEDS ORDERED: allopurinoL 300 MG TAB PO SCH (09:00)
[2020-01-18] MEDS ORDERED: ASPIRIN 81 MG ECTAB PO SCH (09:00)
[2020-01-18] MEDS ORDERED: ANASTROZOLE 1 MG TAB PO SCH (09:00)
[2020-01-18] MEDS ORDERED: lisinopriL 5 MG TAB PO SCH (09:00)
--- NOTE | 2020-01-18 11:24 | Cardiology Consultation ---
Date of Consultation January 18, 2020 Assessment & Plan (1) Chest pain: 79-year-old male with clinical history as outlined above including known moderate coronary atherosclerosis presents now with sharp chest pain somewhat atypical for angina. Initial cardiac enzymes and EKGs without evidence of acute ischemia or injury Discussed options of management would recommend proceeding to stress echocardiogram later today No changes in current medications with further recommendations pending results of testing (2) Hypertension: (3) Cancer of right male breast: (4) CAD (coronary artery disease): History of Present Illness Reason for Consultation: Chest pain Requesting Physician: Dr Bentley Attending Physician: Tameka Bentley MD History of Present Illness Patient is a 79-year-old male whose underlying cardiac and medical issues include 1. Atherosclerotic coronary disease s/p acute inferolateral myocardial infarction 1999 treated with thrombolytic therapy. 2. Cardiac catheterization in 1999 demonstrating moderate nonocclusive atherosclerotic coronary disease all 3 vessels with significant lesion 50% narrowing right coronary artery, occlusive lesion origin 1st diagonal. Preserved LV function. Previously class 1 anginal pattern and functional class 3. Hypertension. 4. Hyperlipidemia. 5. Type II diabetes mellitus. 6. Right breast ductal carcinoma status post mastectomy, lymph node biopsy Patient presents at this admission noting onset of sharp jabbing pain right lateral aspect of his substernal region. Symptoms not associated with diaphoresis or shortness of breath. No specific inciting cause though notes had been having some pain with motion after stretching and similar area. No specific exertional relationship. No fevers chills cough. No orthopnea PND or peripheral edema. No bleeding difficulties. No fevers chills or unexplained i nfections. Appetite and weight have been stable. No change in medications recently. Last stress testing was in October 2017 EKGs and cardiac enzymes at admission only notable for sinus bradycardia. No arrhythmias on telemetry Patient does have chronic mild chest wall tenderness at site of prior right mastectomy Allergies Allergy/AdvReac Type Severity Reaction Status Date / Time Bactrim Allergy Mild RASH Verified 11/01/17 11:02 sulfamethoxazole Allergy Mild RASH Verified 01/17/20 19:32 trimethoprim Allergy Mild RASH Verified 01/17/20 19:32 Penicillins Allergy Unknown Unknown Verified 01/17/20 19:32 Home Medications Home Medications Medication Instructions Recorded Confirmed Type Probiotic Complex 1 cap PO UD PRN 02/02/18 01/17/20 History allopurinol 300 mg PO QAM 02/02/18 01/17/20 History aspirin 81 mg PO QAM 02/02/18 01/17/20 History glipizide 5 mg PO BID 02/02/18 01/17/20 History nitroglycerin [Nitrostat] 1 tab SUBLINGUAL DIRECTED PRN 02/02/18 01/17/20 History simvastatin 20 mg PO HS 02/02/18 01/17/20 History tamsulosin [Flomax] 0.4 mg PO QPM 02/02/18 01/17/20 History anastrozole 1 mg tablet 1 mg PO DAILY 04/05/19 01/17/20 History leuprolide 7.5 mg intramuscular 7.5 mg IM MONTHLY ea 04/05/19 01/17/20 History syringe kit lisinopril 5 mg PO DAILY 01/17/20 01/17/20 History meloxicam [Mobic] 15 mg PO DAILY PRN 01/17/20 01/17/20 History metformin [Glucophage] 500 mg PO DAILY 01/17/20 01/17/20 History metoprolol succinate [Toprol XL] 100 mg PO HS 01/17/20 01/17/20 History Patient History Medical History Anemia BPH (benign prostatic hyperplasia) Breast cancer in male Right Breast - Diagnosed 03/09/18 - Invasive Ductal ER/[place]+, HER2- Now with recurrence CAD (coronary artery disease) "s/p acute inferolateral [place] 1999 treated with thrombolytic therapy Cardiac cath in 1999 - moderate nonocclusive atherosclerotic coronary disease all 3 vessels with significant lesion 50% narrowing right coronary artery, occlusive lesion origin 1st diagonal. Preserved LV function." Diabetes mellitus, type II DM type 2 (diabetes mellitus, type 2) on Glipizide GERD (gastroesophageal reflux disease) Gout Hyperlipidemia Hypertension Myocardial Infarction 1999 Osteoarthritis Temporary low platelet count History of Thyroid nodule BIOPSY AND BEING MONITORED Surgical History H/O colonoscopy "06/23/10- polyp x1- adenomatous tissue, internal hemorrhoids 08/09/13- one 5 mm polyp in descending colon- tubular adenoma" History of cardiac cath 1999 History of cataract surgery Early History of lumpectomy of right breast 04/25/18, 10/1/19 History of tooth extraction 2014 Family History Mother , Passed age 91 of [place] No problems noted. Father , Passed age 53 of [place] No problems noted. Brother No problems noted. Brother No problems noted. Brother Prostate cancer, Onset Age: 50 attributes to agent orange Brother , Passed age 19 of [place] No problems noted. Brother , Passed age 33 of [place] Aneurysm No problems noted. Sister No problems noted. Sister No problems noted. Sister No problems noted. Son No problems noted. Son Myocardial infarction, Onset Age: 38 Daughter No problems noted. 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 Other Information That Helps Us Care for You: No Feels Safe at Home: Yes Safety Concerns: Feels Safe At This Time Childhood Exposure to Second-Hand Smoke: Yes caffeine: Yes (2 Cups of Coffee/day) during the past year weight has: remained stable Dental Care, Regularly: Yes Review of Systems Review of Systems: All systems reviewed & are unremarkable except as noted in HPI & below Physical Exam Constitutional: WD/WN, vitals as above Eyes: PERRL, conjunctivae normal, anicteric sclerae ENMT: external ear and nose normal, oropharynx normal Neck: trachea midline, no thyromegaly Respiratory: normal respiratory effort, lungs clear to auscultation Cardiovascular: Rate/Rhythm: regular rate and regular rhythm Heart Sounds: normal S1 and normal S2; no gallop and no murmur Palpation: normal PMI Vessels: normal carotid upstroke and radial pulses present; no JVD and no carotid bruit Extremities: no edema Chest (Breasts): Additional Comments: No focal tenderness Gastrointestinal (Abdomen): normal bowel sounds, soft, nontender, no hepatosplenomegaly Musculoskeletal: no cyanosis or clubbing, extremities motor strength 5/5 Skin: no rashes, warm and dry Neurologic: PERRL, EOMI, accommodation nl, no face palsy, no dysarthria Psychiatric: A+Ox3, euthymic affect Results & Data ([facility]) Vital Signs (Past 12 Hours) Vital Signs Temp Pulse Pulse Pulse Resp BP Pulse Ox 01/18/20 09:18 49 L 01/18/20 07:44 36.6 C 50 L 19 133/73 97 01/18/20 02:54 36.4 C L 51 L 18 118/66 96 01/17/20 23:33 59 L 01/17/20 23:25 36.4 C L 51 L 18 112/65 97 Laboratory Results Laboratory Results - last 24 hr 01/17/20 01/17/20 01/17/20 17:50 17:50 17:50 WBC 6.79 RBC 4.83 Hgb 14.4 Hct 42.8 MCV 88.6 MCH 29.8 MCHC 33.6 RDW Std Deviation 45.0 RDW Coeff of Purn[place] 13.8 Plt Count 110 L MPV 9.1 Immature Gran % (Auto) 0.3 Neut % (Auto) 60.6 Lymph % (Auto) 25.3 [place] % (Auto) 7.1 Eos % (Auto) 6.0 Baso % (Auto) 0.7 Neut # (Auto) 4.11 Lymph # (Auto) 1.72 [place] # (Auto) 0.48 Eos # (Auto) 0.41 Baso # (Auto) 0.05 Immature Gran # (Auto) 0.02 PT 10.7 INR 1.0 APTT 24.7 PTT Ratio 0.9 D-Dimer 500 Sodium 140 Potassium 3.9 Chloride 108 H Carbon Dioxide 26 Anion Gap 6.0 BUN 20 H Creatinine 1.08 Est Cr Clr Drug Dosing 70.5 Est GFR ( Amer) 76.3 Est GFR (Non-Af Amer) 65.9 BUN/Creatinine Ratio 18.8 Glucose 149 H POC Glucose Estimat Average Glucose Hemoglobin A1c Calcium 9.6 Total Bilirubin 0.4 AST 17 ALT 28 Alkaline Phosphatase 73 Troponin I < 0.015 Total Protein 6.3 L Albumin 3.6 Globulin 2.7 Albumin/Globulin Ratio 1.3 Lipase 204 01/17/20 01/17/20 01/18/20 21:46 23:10 00:08 WBC RBC Hgb Hct MCV MCH MCHC RDW Std Deviation RDW Coeff of [place] Plt Count MPV Immature Gran % (Auto) Neut % (Auto) Lymph % (Auto) [place] % (Auto) Eos % (Auto) Baso % (Auto) Neut # (Auto) Lymph # (Auto) [place] # (Auto) Eos # (Auto) Baso # (Auto) Immature Gran # (Auto) PT INR APTT PTT Ratio D-Dimer Sodium Potassium Chloride Carbon Dioxide Anion Gap BUN Creatinine Est Cr Clr Drug Dosing Est GFR ( Amer) Est GFR (Non-Af Amer) BUN/Creatinine Ratio Glucose POC Glucose 96 140 H Estimat Average Glucose Hemoglobin A1c Calcium Total Bilirubin AST ALT Alkaline Phosphatase Troponin I < 0.015 Total Protein Albumin Globulin Albumin/Globulin Ratio Lipase 01/18/20 01/18/20 01/18/20 05:22 05:22 05:22 WBC 6.37 RBC 4.78 Hgb 14.0 Hct 42.4 MCV 88.7 MCH 29.3 MCHC 33.0 RDW Std Deviation 44.6 RDW Coeff of [place] 13.7 Plt Count 101 L MPV 9.1 Immature Gran % (Auto) Neut % (Auto) Lymph % (Auto) [place] % (Auto) Eos % (Auto) Baso % (Auto) Neut # (Auto) Lymph # (Auto) [place] # (Auto) Eos # (Auto) Baso # (Auto) Immature Gran # (Auto) PT INR APTT PTT Ratio D-Dimer Sodium 141 Potassium 4.0 Chloride 110 H Carbon Dioxide 29 Anion Gap 2.0 L BUN 17 Creatinine 0.93 Est Cr Clr Drug Dosing 75.2 Est GFR ( Amer) 91.5 Est GFR (Non-Af Amer) 78.9 BUN/Creatinine Ratio 18.0 Glucose 117 H POC Glucose Estimat Average Glucose 134 Hemoglobin A1c 6.3 H Calcium 9.0 Total Bilirubin AST ALT Alkaline Phosphatase Troponin I < 0.015 Total Protein Albumin Globulin Albumin/Globulin Ratio Lipase 01/18/20 06:15 WBC RBC Hgb Hct MCV MCH MCHC RDW Std Deviation RDW Coeff of [place] Plt Count MPV Immature Gran % (Auto) Neut % (Auto) Lymph % (Auto) [place] % (Auto) Eos % (Auto) Baso % (Auto) Neut # (Auto) Lymph # (Auto) [place] # (Auto) Eos # (Auto) Baso # (Auto) Immature Gran # (Auto) PT INR APTT PTT Ratio D-Dimer Sodium Potassium Chloride Carbon Dioxide Anion Gap BUN Creatinine Est Cr Clr Drug Dosing Est GFR ( Amer) Est GFR (Non-Af Amer) BUN/Creatinine Ratio Glucose POC Glucose 115 H Estimat Average Glucose Hemoglobin A1c Calcium Total Bilirubin AST ALT Alkaline Phosphatase Troponin I Total Protein Albumin Globulin Albumin/Globulin Ratio Lipase (1) Chest pain Chest pain type: unspecified Qualified Code(s): R07.9 - Chest pain, unspecified (2) Cancer of right male breast Estrogen receptor status: positive Breast location: central portion of breast Qualified Code(s): C50.121 - Malignant neoplasm of central portion of right male breast; Z17.0 - Estrogen receptor positive status [ER+]
[2020-01-18 12:16] VITALS: TEMP 97.5
--- NOTE | 2020-01-18 12:26 | Communication Note ---
Date of Service: January 18, 2020 Stress echocardiogram performed today without stress-induced ischemia to greater than 6-1/2 minutes on Deejay protocol with target heart rate achieved No evidence of myocardial ischemia would recommend discharge with planned scheduled out patient follow-up Relative bradycardia noted during admission, recommend reduced Toprol-XL to 75 mg daily
[2020-01-18] MEDS ORDERED: Nursing to Pharmacy Communication SCH (13:30)
[2020-01-18 15:11] VITALS: BP 132/72; O2SAT 97
[2020-01-18] MEDS ORDERED: PANTOprazole 40 MG TAB PO SCH (15:15)
--- NOTE | 2020-01-18 16:11 | Hospitalist Progress Note ---
Date of Service January 18, 2020 Assessment & Plan (1) Chest pain: This is a 79-year-old male with PMH of CAD, DM II, HTN, HLD, and breast cancer on anastrozole who presents with chest pain starting this afternoon. Burning central chest pain x 1 week, worsened today but resolved after 2 sl ntg Troponin x3 negative EKG showed no acute ischemic changes Stress echo is negative for inducible ischemia Continue aspirin, statin and metoprolol Case discussed with cardiology recommended to decrease the metoprolol 75mg due to bradycardia Will give a trial of PPI Ok from cardiology standpoint to discharge home (2) CAD (coronary artery disease): Toprol XL will decrease to 75mg on discharge as per cardio Continue lisinopril, ASA 81mg daily and simvastatin 20mg PO qHS. Denies any chest pain currently (3) Bradycardia: Due to the beta dedrick Case discussed with cardio and recommended to decrease to 75mg Continue monitor (4) Hypertension: Continue lisinopril, Toprol-XL (5) Diabetes mellitus, type II: Most recent Hba1c 6.3 Will resume home agents SSI while in-patient Continue monitor BS (6) Cancer of right male breast: Status post resection x2. Continue anastrozole, monthly Lupron injections. Follows with [facility] oncology (7) BPH (benign prostatic hyperplasia): Continue Flomax DVT Ppx: SQ heparin Code status: FULL PCP: Tyler Dispo: Will discharge home today Admission and Anticipated Discharge Date Admission Date: January 17, 2020 Subjective Pt was seen and examined Lying in bed with no distress with at bedside Pt said that he feels fine He said that he does not have any chest pain He said that he used to take PPI for acid reflex, but was discontinued Currently denies any chest pain, palpitation, dizziness and SOB Physical Exam Physical Exam: General- No acute distress Head- atraumatic Eyes- PERRL, EOMI, ENT- oropharynx clear Neck- supple, no JVD Lungs- clear to auscultation Heart- regular rhythm; no murmur Abdomen- normal bowel sounds, soft, nontender Extremities- no calf tenderness Neuro- alert, oriented x 3; PERRL, EOMI; no facial palsy; no dysarthria Skin- warm & dry Results & Data Results & Data ([facility]) Vital Signs (Past 12 Hours) Vital Signs Temp Pulse Pulse Resp BP Pulse Ox 01/18/20 15:10 36.4 C L 56 L 18 132/72 97 01/18/20 12:15 36.4 C L 58 L 18 128/70 95 01/18/20 09:18 49 L 01/18/20 07:44 36.6 C 50 L 19 133/73 97 (1) Cancer of right male breast Breast location: central portion of breast Estrogen receptor status: positive Qualified Code(s): C50.121 - Malignant neoplasm of central portion of right male breast; Z17.0 - Estrogen receptor positive status [ER+] (2) Chest pain Chest pain type: unspecified Qualified Code(s): R07.9 - Chest pain, unspecified
[2020-01-18] MEDS ORDERED: INSULIN ASPART 100 UNITS/ML 3 ML PEN SC SCH (16:30)
[2020-01-18 16:47] VITALS: PULSE 51
[2020-01-18] MEDS ORDERED: SIMVASTATIN 20 MG TAB PO SCH (21:00)
[2020-01-18] MEDS ORDERED: METOPROLOL SUCC 25MG EXT REL TAB PO SCH (21:00)
[2020-01-18] MEDS ORDERED: TAMSULOSIN HCL 0.4 MG CAP PO SCH (21:00)
[2020-01-18] MEDS ORDERED: METOPROLOL SUCC 50MG EXT REL TAB PO SCH (21:00)
--- NOTE | 2020-01-18 22:16 | Electrocardiogram Report ---
Test Reason : Blood Pressure : / mmHG Vent. Rate : 051 BPM Atrial Rate : 051 BPM P-R Int : 234 ms QRS Dur : 086 ms QT Int : 448 ms P-R-T Axes : 041 019 000 degrees QTc Int : 412 ms Sinus bradycardia with 1st degree A-V block Otherwise normal ECG When compared with ECG of 02-NOV-2017 07:18, No significant change was found Confirmed by Elvis Gaytan ([id number]) on 01/18/2020 10:16:19 PM Referred By: REFERRED SELF Confirmed By:Elvis Gaytan
--- NOTE | 2020-01-18 22:41 | Electrocardiogram Report ---
Test Reason : Blood Pressure : / mmHG Vent. Rate : 052 BPM Atrial Rate : 052 BPM P-R Int : 234 ms QRS Dur : 088 ms QT Int : 468 ms P-R-T Axes : 022 021 -14 degrees QTc Int : 435 ms Sinus bradycardia with 1st degree A-V block Otherwise normal ECG When compared with ECG of 17-JAN-2020 17:33, No significant change was found Confirmed by Elvis Gaytan ([id number]) on 01/18/2020 10:41:34 PM Referred By: REFERRED SELF Confirmed By:Elvis Gaytan
--- NOTE | 2020-01-19 06:44 | Electrocardiogram Report ---
Test Reason : Blood Pressure : / mmHG Vent. Rate : 051 BPM Atrial Rate : 051 BPM P-R Int : 232 ms QRS Dur : 090 ms QT Int : 474 ms P-R-T Axes : 025 015 -04 degrees QTc Int : 436 ms Sinus bradycardia with 1st degree A-V block Otherwise normal ECG When compared with ECG of 17-JAN-2020 22:55, No significant change was found Confirmed by Elvis Gaytan ([id number]) on 01/19/2020 6:44:16 AM Referred By: REFERRED SELF Confirmed By:Elvis Gaytan
--- NOTE | 2020-01-19 09:23 | Discharge Summary ---
Date of Service January 18, 2020 Admission HPI Per Admitting Provider This is a 79-year-old male with PMH of CAD, DM II, HTN, HLD, and breast cancer on anastrozole who presents with chest pain starting this afternoon. Patient states he has been having indigestion for the past week that resolved after drinking a emiliana stefano. Had more significant indigestion this afternoon that was not resolved even after 3 emiliana stefano's. Describes chest pain as centralized and burning. Nonradiating. Not associated with shortness of breath, nausea vomiting. Took 2 sublingual nitroglycerin prior to arrival and chest pain completely resolved. Has not recurred. Follows with Dr. Hernandez for cardiology. Has history of inferolateral [place] in 1999 that was treated with thrombolytic therapy at [facility]. Underwent cardiac cath at that time which revealed moderate nonocclusive atherosclerotic coronary disease with all 3 vessels with significant lesion 50% narrowing right coronary artery, occlusive lesion origin 1st diagonal. Exercise stress echo from 2018 without inducible ischemia. Currently feeling well. Denies any fever, chills, lightheadedness, visual changes, chest pain, palpitations, shortness of breath, wheezing, nausea, vomiting, abdominal pain, dysuria, diarrhea constipation. Admission Exam Per Admitting Provider General Appearance: WD/WN, vitals as above, NAD, sitting up in bed, pleasant, conversing easily Head: normocephalic, atraumatic Eyes: normal inspection, PERRL, conjunctivae normal, anicteric sclerae ENT: external ear and nose normal, oropharynx normal Neck: trachea midline, no thyromegaly normal visual inspection Respiratory: normal respiratory effort, lungs clear to auscultation, no wheeze, rales, rhonchi. Normal insp/exp effort, no accessory muscle use Cardiovascular: regular rate, rhythm, no murmur, normal peripheral pulses. Vessels: no JVD Chest: normal inspection of chest, non-reproducible pain Abdomen/GI: normal bowel sounds, soft, nontender, no hepatosplenomegaly Extremities/Musculoskeletal: no cyanosis or clubbing, extremities motor strength 5/5 Neurologic: PERRL, EOMI, CN's II-XI intact bilaterally and moves all extremities Psychiatric: A+Ox3, euthymic affect Skin: no rashes, normal color, warm/dry Principal Diagnosis Chest pain: CAD (coronary artery disease): Hypertension: Diabetes mellitus, type II: Discharge Exam General- No acute distress Head- atraumatic Eyes- PERRL, EOMI, ENT- oropharynx clear Neck- supple, no JVD Lungs- clear to auscultation Heart- regular rhythm; no murmur Abdomen- normal bowel sounds, soft, nontender Extremities- no calf tenderness Neuro- alert, oriented x 3; PERRL, EOMI; no facial palsy; no dysarthria Skin- warm & dry Discharge Data Allergies Allergy/AdvReac Type Severity Reaction Status Date / Time Bactrim Allergy Mild RASH Verified 11/01/17 11:02 sulfamethoxazole Allergy Mild RASH Verified 01/17/20 19:32 trimethoprim Allergy Mild RASH Verified 01/17/20 19:32 Penicillins Allergy Unknown Unknown Verified 01/17/20 19:32 Consultations 01/17/20 18:30 ED Decision to Admit Stat 01/18/20 08:00 Consult Cardiology Routine Ordered Studies XR chest 1V portable HISTORY: Atypical Chest Pain COMPARISON: Chest 11/20/2016. FINDINGS: The lungs are clear. Cardiac silhouette is normal in size. No pleural effusions. No pneumothorax. IMPRESSION: No acute process. ACT 112: Negative or not required by law. Electronically signed by: Junior Foster M.D. 01/17/2020 6:02 PM Dictated: 01/17/201800 Transcribed: 01/17/201800 Hospital Course (1) Chest pain: This is a 79-year-old male with PMH of CAD, DM II, HTN, HLD, and breast cancer on anastrozole who presents with chest pain starting this afternoon. Burning central chest pain x 1 week, worsened today but resolved after 2 sl ntg Troponin x3 negative EKG showed no acute ischemic changes Stress echo is negative for inducible ischemia Continue aspirin, statin and metoprolol Case discussed with cardiology recommended to decrease the metoprolol 75mg due to bradycardia Will give a trial of PPI Ok from cardiology standpoint to discharge home (2) CAD (coronary artery disease): Toprol XL will decrease to 75mg on discharge as per cardio Continue lisinopril, ASA 81mg daily and simvastatin 20mg PO qHS. Denies any chest pain currently (3) Bradycardia: Due to the beta dedrick Case discussed with cardio and recommended to decrease to 75mg Continue monitor (4) Hypertension: Continue lisinopril, Toprol-XL (5) Diabetes mellitus, type II: Most recent Hba1c 6.3 Will resume home agents SSI while in-patient Continue monitor BS (6) Cancer of right male breast: Status post resection x2. Continue anastrozole, monthly Lupron injections. Follows with [facility] (7) BPH (benign prostatic hyperplasia): Continue Flomax DVT Ppx: SQ heparin Code status: FULL PCP: Tyler Dispo: Will discharge home today Total Time Total Time Spent Total Time Spent (In Minutes): 35 minutes Total Time Includes: Examination of the Patient, Discharge Planning, Medication Reconciliation, Communication With Other Providers and Other Discharge Plan Discharge Items Patient Disposition: Home - Self-Care Reason For Visit: CHEST PAIN Discharge Diagnosis: Chest pain: CAD (coronary artery disease): Hypertension: Diabetes mellitus, type II: Activity: Resume your previous activity Non-emergency contact: Primary Care Provider and Mortgage Loan Coordinator Call non-emergency contact if: you have any medication questions Follow-up/Referrals: Patel Scott MD [Primary Care Provider] - Diet: Carb Consistent or DM2 Addtl Attending Provider Instructions: Follow up with your primary care provider in 1 week ( please call to schedule for the appointment ) Follow up with cardiology Metoprolol succinate decreased to 75mg daily Continue monitor blood pressure and heart rate Pending Studies at Discharge: No Stand-Alone Forms: [facility] [email or web address], Smoking Cessation Medications and DC Order Prescriptions: New metoprolol succinate 50 mg tablet extended release 24 hr 75 mg PO DAILY 30 Days Qty: 45 RF: 0 pantoprazole 20 mg tablet,delayed release (DR/EC) 20 mg PO DAILY Qty: 30 RF: 0 Continued Lupron [place] 7.5 mg syringe kit 7.5 mg IM MONTHLY RF: 0 anastrozole [Arimidex] 1 mg tablet 1 mg PO DAILY RF: 0 tamsulosin [Flomax] 0.4 mg Capsule 0.4 mg PO QPM RF: 0 simvastatin 20 mg Tablet 20 mg PO HS RF: 0 nitroglycerin [Nitrostat] 0.4 mg Tablet, Sublingual 1 tab Sublingual DIRECTED PRN (Reason: Chest Pain) RF: 0 aspirin 81 mg Tablet,Chewable 81 mg PO QAM RF: 0 allopurinol 300 mg Tablet 300 mg PO QAM RF: 0 glipizide 5 mg Tablet 5 mg PO BID RF: 0 Probiotic Complex 25 billion cell -100 mg Capsule 1 cap PO UD PRN (Reason: stomach discomfort) RF: 0 metformin [Glucophage] 500 mg tablet 500 mg PO DAILY RF: 0 meloxicam [Mobic] 15 mg tablet 15 mg PO DAILY PRN (Reason: Pain) RF: 0 lisinopril 5 mg tablet 5 mg PO DAILY RF: 0 Discontinued metoprolol succinate [Toprol XL] 100 mg tablet extended release 24 hr 100 mg PO HS RF: 0 Discharge Orders: Discharge Order (Routine); Ordered 01/18/20 Ordered By: Tameka Jauregui/Other Patient Handouts: Managing Type 2 Diabetes Admission Data Admit Date/Time: 01/17/20 19:16 Attending Provider: Tameka Bentley Admit Provider: Khadra Dhillon Primary Care Provider: Patel Scott Other Providers: Hector Hernandez Sabrina M. Other Interventions: Discharge Summary Assessment (RN) Last Done: 01/18/20 16:48
== END 2020-01-18 17:23 | disposition home or self-care (01) ==
LOC: 2S 17:25 → ED 17:25 → SUATTDRO 19:16 → 2S 20:31

== ENCOUNTER 2021-08-08 11:35 | Observation (INO) ==
--- NOTE | 2021-08-08 11:44 | Emergency Department Note ---
Impression & Plan Intractable low back pain, Ambulatory dysfunction ED Provider Note NAME: AKNNAN BENNETT AGE: 80 SEX: M : 1940 ARRIVES VIA: Ambulance INFORMANT: [Patient][, ] ED PROVIDER(S): [Skyler Pendleton MD] Chief Complaint: Back pain HPI: Patient presents due to concern for back pain. The patient relates that he has chronic back pain but tends to ease with time as well as with associated Tylenol use. The patient states though that this morning it was more severe in his left lower back and nonradiating. Patient denies any numbness tingling or focal weakness. The patient states that he could not ambulate secondary to the pain. The patient did take some Tylenol but without improvement in symptoms. Patient denies any fevers chills chest pain shortness of breath nausea or vomiting. Patient denies any bowel or bladder incontinence or retention and no recent trauma or heavy lifting. Patient does have a remote history of breast CA status post resection which is in remission and the patient does have a history of prostate cancer for which is currently under surveillance but does not receive any active chemotherapy or radiation treatment. Patient denies any issues with urination or defecation. Patient denies any tobacco use does use occasional alcohol no drug use. ROS: See HPI for pertinent positives and negatives. A total of 10 systems were reviewed and otherwise negative. Past medical history: See below Surgical history: See below Social history: See below Physical Exam: GENERAL: [Well appearing, well nourished,] NAD, [wearing a mask,] non-toxic. EYE EXAM: Normal conjunctiva. PERRL, no anisocoria and EOM's grossly intact w/o pain. NECK: Supple, no nuchal rigidity, no adenopathy, non-tender. No signs of meningismus. LUNGS: Clear to auscultation. Normal chest wall mechanics. HEART: NSR, no MRG. ABDOMEN: Abdomen soft, non-tender, normo-active bowel sounds, no masses, no rebound or guarding. BACK: No CVA TTP. SKIN: No rashes and no bruising. UPPER EXTREMITIES: Upper extremities are grossly normal. LOWER EXTREMITIES: Grossly normal, no edema. NEURO EXAM: A&O x3, cranial nerves II-XII grossly intact, normal speech, moves all 4 extremities on command w/o issue. Differential diagnoses: Musculoskeletal, disc herniation, fracture, metastatic disease, cord compression, discitis, sciatica, cauda equina, infection, aortic disease, renal colic, gastrointestinal, as well as other pathologies. Course: Patient was seen and evaluated the bedside. Full history physical exam was performed. Imaging Studies: See Below [Cardiac monitoring: An order was placed for continuous cardiac monitoring. The monitor shows a rate of 65 with sinus rhythm.] MDM: Patient was seen due to concern for back pain. The patient does not have signs consistent with cauda equina but most likely strain and/or sciatica possible radiculopathy although the patient does not have shooting pain. Patient did have a CT lumbar spine completed which only showed degenerative changes. Upon reassessment the patient did have improvement in his symptoms. The patient was attempted to be ambulatory a short time thereafter but was unable to do so secondary to pain. Given this concern I did speak with the on-call hospitalist Dr. Hameed and the patient was admitted by the medicine service. Patient did have blood work completed along with Covid swab. Past Med/Surg History Medical History (Updated 08/09/21 @ 06:20 by Skyler Pendleton MD) Anemia BPH (benign prostatic hyperplasia) Breast cancer in male Right Breast - Diagnosed 03/09/18 - Invasive Ductal ER/MS+, HER2- Now with recurrence CAD (coronary artery disease) "s/p acute inferolateral MD 1999 treated with thrombolytic therapy Cardiac cath in 1999 - moderate nonocclusive atherosclerotic coronary disease all 3 vessels with significant lesion 50% narrowing right coronary artery, occlusive lesion origin 1st diagonal. Preserved LV function." Diabetes mellitus, type II DM type 2 (diabetes mellitus, type 2) on Glipizide GERD (gastroesophageal reflux disease) Gout Hyperlipidemia Hypertension Myocardial Infarction 1999 Osteoarthritis Temporary low platelet count History of Thyroid nodule BIOPSY AND BEING MONITORED Surgical History H/O colonoscopy "06/23/10- polyp x1- adenomatous tissue, internal hemorrhoids 08/09/13- one 5 mm polyp in descending colon- tubular adenoma" History of cardiac cath 1999 History of cataract surgery Early 1999' History of lumpectomy of right breast 04/25/18, 03/06/19 History of tooth extraction 2014 Family History Mother , Passed age 91 of MD No problems noted. Father , Passed age 53 of [place] No problems noted. Brother No problems noted. Brother No problems noted. Brother Prostate cancer, Onset Age: 50 attributes to agent orange Brother , Passed age 19 of MD No problems noted. Brother , Passed age 33 of Brain Aneurysm No problems noted. Sister No problems noted. Sister No problems noted. Sister No problems noted. Son No problems noted. Son Myocardial infarction, Onset Age: 38 Daughter No problems noted. 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 Other Information That Helps Us Care for You: No Feels Safe at Home: Yes Safety Concerns: Feels Safe At This Time Childhood Exposure to Second-Hand Smoke: Yes caffeine: Yes (2 Cups of Coffee/day) during the past year weight has: remained stable Dental Care, Regularly: Yes Assistive Devices: Glasses and Hearing Aid - Bilateral Allergies Allergies Allergy/AdvReac Type Severity Reaction Status Date / Time Bactrim Allergy Mild RASH Verified 11/01/17 11:02 sulfamethoxazole Allergy Mild RASH Verified 08/08/21 15:06 trimethoprim Allergy Mild RASH Verified 08/08/21 15:06 Penicillins Allergy Unknown Unknown Verified 08/08/21 15:06 Home Meds Home Medications Medication Instructions Recorded Confirmed allopurinol 300 mg tablet 300 mg PO QAM 02/02/18 08/08/21 aspirin 81 mg chewable tablet 81 mg PO QAM 02/02/18 08/08/21 glipizide 5 mg tablet 5 mg PO BID 02/02/18 08/08/21 nitroglycerin 0.4 mg sublingual 1 tab SUBLINGUAL DIRECTED PRN 02/02/18 08/08/21 tablet (Nitrostat) simvastatin 20 mg tablet 20 mg PO HS 02/02/18 08/08/21 anastrozole 1 mg tablet (Arimidex) 1 mg PO DAILY 04/05/19 08/08/21 leuprolide 7.5 mg intramuscular 7.5 mg IM MONTHLY ea 04/05/19 08/08/21 syringe kit (Lupron Depot) lisinopril 5 mg tablet 5 mg PO DAILY 01/17/20 08/08/21 L.acidophilus-B.animalis-B.bifidum 1 cap PO UD PRN 04/17/20 08/08/21 25 billion cell-FOS 100 mg capsule (Probiotic Complex) metformin 500 mg tablet 500 mg PO DAILY 08/08/21 08/08/21 metoprolol succinate 50 mg 50 mg PO DAILY 08/08/21 08/08/21 tablet,extended release 24 hr tamsulosin 0.4 mg capsule 0.4 mg PO HS 08/08/21 08/08/21 Results & Data (ED) Vital Signs Vital Signs - 24 hr 08/08/21 11:39 08/08/21 12:05 08/08/21 12:20 Temperature 36.7 C Temperature Source Oral Pulse Rate 61 49 L Pulse Rate from SpO2 Sensor Respiratory Rate 18 16 Respiratory Effort / Characteristics Non-Labored Respiratory Depth Normal Respiratory Pattern Regular Blood Pressure 152/70 H Blood Pressure Mean 97 Blood Pressure Position Lying Pulse Oximetry 96 Oxygen Delivery Method Room Air Room Air Sepsis Recent Fever Within 48 Hours No Sepsis New/Unexplained Change in Mental Status No Sepsis Action Taken by Nursing No Action Required 08/08/21 12:30 08/08/21 13:00 08/08/21 13:30 Temperature Temperature Source Pulse Rate 48 L 47 L 47 L Pulse Rate from SpO2 Sensor 47 L 47 L Respiratory Rate 16 13 15 Respiratory Effort / Characteristics Respiratory Depth Respiratory Pattern Blood Pressure Blood Pressure Mean Blood Pressure Position Pulse Oximetry 95 93 Oxygen Delivery Method Sepsis Recent Fever Within 48 Hours Sepsis New/Unexplained Change in Mental Status Sepsis Action Taken by Nursing 08/08/21 13:56 08/08/21 14:00 Temperature Temperature Source Pulse Rate 54 L 52 L Pulse Rate from SpO2 Sensor Respiratory Rate 19 13 Respiratory Effort / Characteristics Respiratory Depth Respiratory Pattern Blood Pressure 133/70 Blood Pressure Mean 91 Blood Pressure Position Pulse Oximetry Oxygen Delivery Method Sepsis Recent Fever Within 48 Hours Sepsis New/Unexplained Change in Mental Status Sepsis Action Taken by Care Home Medications Current Medication List: was personally reviewed by me Laboratory Data Attestation: I reviewed the patient's lab results. Result diagrams: 08/08/21 14:50 08/08/21 14:50 Administered Medications Acetaminophen (Acetaminophen 500 Mg Tab) 1,000 mg PO TID PRN PRN Reason: Pain or Fever Stop: 09/07/21 16:07 Last Admin: 08/08/21 20:32 Dose: 1,000 mg Documented by: [id number] Enoxaparin Sodium (Enoxaparin Inj 40 Mg/0.4 Ml Syr) 40 mg SQ Q24H [facility] Stop: 09/07/21 16:59 Last Admin: 08/08/21 17:31 Dose: 40 mg Documented by: [id number] Insulin Aspart (Insulin Aspart Per Unit) 0 units SC ACHS [facility] Stop: 09/07/21 16:29 Last Admin: 08/08/21 21:17 Dose: 2 units Documented by: [id number] Cosigned by: [id number] Admin: 08/08/21 18:07 Dose: 5 units Documented by: [id number] Cosigned by: [id number] Insulin Glargine (Insulin Glargine Solostar 100 Units/Ml 3 Ml Pen) 10 units SC BID VIVEK Stop: 09/07/21 20:59 Last Admin: 08/08/21 21:18 Dose: 10 units Documented by: [id number] Cosigned by: [id number] Melatonin (Melatonin 3 Mg Tab) 3 mg PO HS PRN PRN Reason: Sleep Stop: 09/07/21 20:20 Last Admin: 08/08/21 20:35 Dose: 3 mg Documented by: [id number] Miscellaneous (Remove Lidoderm Patch) 1 ea N/A DAILY@2100 [facility] Stop: 09/07/21 20:59 Last Admin: 08/08/21 12:11 Dose: Not Given Documented by: [id number] Simvastatin (Simvastatin 20 Mg Tab) 20 mg PO HS [facility] Stop: 09/07/21 20:59 Last Admin: 08/08/21 20:34 Dose: 20 mg Documented by: [id number] Tamsulosin HCl (Tamsulosin Hcl 0.4 Mg Cap) 0.4 mg PO HS [facility] Stop: 09/07/21 20:59 Last Admin: 08/08/21 20:34 Dose: 0.4 mg Documented by: [id number] Discontinued Medications Sodium Chloride (Nss) 500 mls @ 999 mls/hr IV .Q31M [facility] Stop: 08/08/21 14:45 Last Infusion: 08/08/21 18:01 Dose: 0 mls/hr Documented by: [id number] Admin: 08/08/21 14:57 Dose: 999 mls/hr Documented by: [id number] Lidocaine (Lidocaine 5% 1 Patch) 1 patch TD NOW STA Stop: 08/08/21 11:55 Last Admin: 08/08/21 12:09 Dose: 1 patch Documented by: [id number] Methylprednisolone (Methylprednisolone 40 Mg/Ml Vial) 40 mg IV NOW STA Stop: 08/08/21 11:55 Last Admin: 08/08/21 12:09 Dose: 40 mg Documented by: [id number] Morphine Sulfate (Morphine Sulfate 4 Mg/Ml 1 Ml Carp\\Vial) 4 mg IV NOW STA Stop: 08/08/21 11:55 Last Admin: 08/08/21 12:09 Dose: 4 mg Documented by: [id number] Imaging Data Radiologist's Impression: Lumbar Spine CT 08/08/21 11:54 CT lumbar spine wo con CLINICAL HISTORY: Back Pain TECHNIQUE: Multidetector row helical CT of the lumbar spine was performed without administration of intravenous contrast. Coronal and sagittal reformations were obtained. Automated dose lowering techniques and/or adjustment according to patient size were utilized for this exam. Comparison: None available at the time of this dictation. FINDINGS: For counting purposes, the last complete intervertebral disc space is considered L5-S1. No acute fractures are identified. Degenerative changes are noted in the visualized spine. Vertebral body alignment is within normal limits. Vascular calcifications are seen. IMPRESSION: Degenerative changes without evidence of acute bony injury. ACT 112: Negative or not required by law. Electronically signed by: Chaz Blankenship M.D. 08/08/2021 12:52 PM Discharge Plan Visit Data Chief Complaint: Back Injury/Pain Stated Complaint: LOWER BACK PAIN ED Provider: Skyler Pendleton Discharge Problem: Intractable low back pain, Ambulatory dysfunction Patient Disposition: Admitted As Inpatient Discharge Instructions Interventions: ED Discharge Assessment Last Done: 08/08/21 16:30
[2021-08-08] MEDS ORDERED: LIDOCAINE 5% 1 PATCH TD STA (11:54)
[2021-08-08] MEDS ORDERED: MoRPHine SULFATE 4 MG/ML 1 ML CARP\\VIAL IV STA (11:54)
--- NOTE | 2021-08-08 12:53 | CT Scan Report ---
CT lumbar spine wo con CLINICAL HISTORY: Back Pain TECHNIQUE: Multidetector row helical CT of the lumbar spine was performed without administration of i ntravenous contrast. Coronal and sagittal reformations were obtained. Automated dose lowering techniq ues and/or adjustment according to patient size were utilized for this exam. Comparison: None available at the time of this dictation. FINDINGS: For counting purposes, the last complete intervertebral disc space is considered L5-S1. No acute fractures are identified. Degenerative changes are noted in the visualized spine. Vertebral body alignment is within normal limits. Vascular calcifications are seen. IMPRESSION: Degenerative changes without evidence of acute bony injury. ACT 112: Negative or not required by law. Electronically signed by: Chaz Blankenship M.D. 08/08/2021 12:52 PM
[2021-08-08] MEDS ORDERED: SODIUM CHLORIDE 0.9% 500 ML IV SCH (14:15)
--- NOTE | 2021-08-08 15:06 | History & Physical Report ---
Date of Service August 08, 2021 Assessment & Plan (1) Intractable low back pain: Plan: -Without fever/chills, weight loss, nocturnal pain, night sweats, no incontinence/constipation or paraesthesias, no acute injury, CT of lumbar spine did not show acute fracture or met dz. No radiation of pain. Labs including CBC, BMP, UA unremarkable. -Takes Tylenol at home for pain, will continue this 1000mg TID, also using lidocaine patch and Toradol, as well as morphine ordered PRN for breakthrough pain. (2) CAD (coronary artery disease): Plan: -s/p acute inferolateral [place] 1999 treated with thrombolytic therapy; cardiac cath in 1999 - moderate nonocclusive atherosclerotic coronary disease all 3 vessels with significant lesion 50% narrowing right coronary artery, occlusive lesion origin 1st diagonal. Preserved LV function." -Continue lisinopril, ASA 81mg daily and simvastatin 20mg PO qHS. -Denies any chest pain currently. (3) Hypertension: Plan: -Continue lisinopril 5 mg daily. (4) Diabetes mellitus, type II: Plan: -Hold glipizide and metformin while inpatient. -Accuchek ACHS, Lantus 1 units BID with SSI. -Hba1c in AM. -Heart healthy/CC diet (5) HLD (hyperlipidemia): Plan: -Continue simvastatin 20 mg daily. (6) Prostate cancer: Plan: -Dx in 2019 as time of breast CA recurrence. -Lupron injections monthly. 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 -Continue anastrazole, as well as Lupron for prostate CA. Plan: -Observation on med/surg -SCDs and Lovenox for DVT ppx -Full Code History of Present Illness Chief Complaint: intractable back pain Primary Care Provider: Patel Scott MD This is a 79-year-old male with PMH of CAD, DM II, HTN, HLD, breast cancer on anastrozole, and prostate cancer on Lupron who presents with acute worsening of back pain since this morning. Patient states he has been having ongoing low back pain for the past 3-4 weeks which he has been successfully been managing at home with Tylenol, however this morning, patient reports new onset of back pain that is making ambulation near impossible. He states it is left sided without radiation across his back or down his groin/legs. This pain is somewhat different than his usual pain, this is stabbing and aching with some alleviation achieved with Tylenol. Pain is much better with lying still and exacerbated with any movement. He does not recall any recent strenuous activity or traumatic events to incite this pain, does report while making his bed last evening he "jammed his right leg" somehow, but the pain that led to presentation today is left sided. He has had more fatigue than usual and increased urinary frequency for a week or so, but otherwise no fever/chills, myalgias, night sweats, sudden weight loss, nocturnal back pain, urinary or bowel incontinence, numbness/tingling in groin or either legs, abdominal pain, nausea/vomiting, no dysuria, hematuria, or change in bowel habits. in ED, CT of lumbar spine was performed--> Degenerative changes without evidence of acute bony injury. Routine labs ordered, CBC and BMP unremarkable, UA unremarkable. Patient received 4 mg IV morphine, 40 mg IV SoluMedrol, and a lidocaine patch for pain as well as a 1/2 L NS bolus in ED with moderate relief of pain. Hospitalist service consulted for evaluation and admission. Allergies Allergy/AdvReac Type Severity Reaction Status Date / Time Bactrim Allergy Mild RASH Verified 11/01/17 11:02 sulfamethoxazole Allergy Mild RASH Verified 08/08/21 15:06 trimethoprim Allergy Mild RASH Verified 08/08/21 15:06 Penicillins Allergy Unknown Unknown Verified 08/08/21 15:06 Home Medications Medication Instructions Recorded Confirmed Type allopurinol 300 mg tablet 300 mg PO QAM 02/02/18 08/08/21 History aspirin 81 mg chewable tablet 81 mg PO QAM 02/02/18 08/08/21 History glipizide 5 mg tablet 5 mg PO BID 02/02/18 08/08/21 History nitroglycerin 0.4 mg sublingual 1 tab SUBLINGUAL DIRECTED PRN 02/02/18 08/08/21 History tablet (Nitrostat) simvastatin 20 mg tablet 20 mg PO HS 02/02/18 08/08/21 History anastrozole 1 mg tablet (Arimidex) 1 mg PO DAILY 04/05/19 08/08/21 History leuprolide 7.5 mg intramuscular 7.5 mg IM MONTHLY ea 04/05/19 08/08/21 History syringe kit (Lupron Depot) lisinopril 5 mg tablet 5 mg PO DAILY 01/17/20 08/08/21 History L.acidophilus-B.animalis-B.bifidum 1 cap PO UD PRN 04/17/20 08/08/21 History 25 billion cell-FOS 100 mg capsule (Probiotic Complex) metformin 500 mg tablet 500 mg PO DAILY 08/08/21 08/08/21 History metoprolol succinate 50 mg 50 mg PO DAILY 08/08/21 08/08/21 History tablet,extended release 24 hr tamsulosin 0.4 mg capsule 0.4 mg PO HS 08/08/21 08/08/21 History Past Med/Surg History Medical History Anemia BPH (benign prostatic hyperplasia) Breast cancer in male Right Breast - Diagnosed 03/09/18 - Invasive Ductal ER/FL+, HER2- Now with recurrence CAD (coronary artery disease) "s/p acute inferolateral [place] 1999 treated with thrombolytic therapy Cardiac cath in 1999 - moderate nonocclusive atherosclerotic coronary disease all 3 vessels with significant lesion 50% narrowing right coronary artery, occlusive lesion origin 1st diagonal. Preserved LV function." Diabetes mellitus, type II DM type 2 (diabetes mellitus, type 2) on Glipizide GERD (gastroesophageal reflux disease) Gout Hyperlipidemia Hypertension Myocardial Infarction 1999 Osteoarthritis Temporary low platelet count History of Thyroid nodule BIOPSY AND BEING MONITORED Surgical History H/O colonoscopy "06/23/10- polyp x1- adenomatous tissue, internal hemorrhoids 08/09/13- one 5 mm polyp in descending colon- tubular adenoma" History of cardiac cath 1999 History of cataract surgery Early 1999' History of lumpectomy of right breast 04/25/18, 03/06/19 History of tooth extraction 2013 Family History Mother , Passed age 91 of [place] No problems noted. Father , Passed age 53 of [place] No problems noted. Brother No problems noted. Brother No problems noted. Brother Prostate cancer, Onset Age: 50 attributes to agent orange Brother , Passed age 19 of [place] No problems noted. Brother , Passed age 33 of Brain Aneurysm No problems noted. Sister No problems noted. Sister No problems noted. Sister No problems noted. Son No problems noted. Son Myocardial infarction, Onset Age: 38 Daughter No problems noted. 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 Other Information That Helps Us Care for You: No Feels Safe at Home: Yes Safety Concerns: Feels Safe At This Time Childhood Exposure to Second-Hand Smoke: Yes caffeine: Yes (2 Cups of Coffee/day) during the past year weight has: remained stable Dental Care, Regularly: Yes Assistive Devices: Glasses and Hearing Aid - Bilateral Review of Systems Review of Systems: Constitutional: No fever/chills, night sweats or acute weight loss Eyes: No diplopia, no worsening or blurred vision ENT: normal hearing, no trouble swallowing Respiratory: No cough, sputum, dyspnea at rest or on exertion Cardiovascular: No chest pain, tightness or palpitations Abdomen: Left flank pain since this AM, 1 episode of suprapubic/lower quadrant pain with urination; No pain, nausea, vomiting, diarrhea or constipation Musculoskeletal: No joint pain, calf pain, swelling Neurologic: No weakness, numbness/tingling, or balance problems Psychiatric: No anxiety or depression Skin: No rash or itch Physical Exam Physical Exam: General: awake, alert, no apparent distress Head: Normocephalic, atraumatic ENT: PERRL, EOMI, no pharyngeal exudate, mucous membranes moist Chest: Clear to auscultation, on room air, no adventitious breath sounds Cardiac:Bradycardic, HR in 50s, regular rhythm, no murmur, no JVD, normal peripheral pulses, good capillary refill Abdominal: NABS x 4 quadrants with mild tenderness arcoss lower quadrants/suprapubic region with deep palpation, without rebound pain or guarding Extremities: Normal inspection, no peripheral edema or erythema, calfs nontender to palpation Psych: Normal mood and affect Neuro: no spinal tenderness, no step offs or ecchymosis, left CVA tenderness; strength intact bilaterally and rated 5/5, no motor deficits, speech is clear, no peripheral sensory deficits Skin: erythematous patch noted on right breast on side of mastectomy s/p radiation; pt states it has been present for two weeks, being managed by oncology. Results & Data Results & Data ([facility]) Vital Signs (Past 12 Hours) Vital Signs Temp Pulse Resp BP Pulse Ox 08/08/21 14:00 52 L 13 08/08/21 13:56 54 L 19 133/70 08/08/21 13:30 47 L 15 93 08/08/21 13:00 47 L 13 95 08/08/21 12:30 48 L 16 08/08/21 12:20 49 L 16 08/08/21 11:39 36.7 C 61 18 152/70 H 96 Laboratory Results Abnormal lab results 08/08/21 08/08/21 08/08/21 Range/Units 14:50 14:50 17:21 Plt Count 127 L (130-400) K/uL Lymph # (Auto) 0.99 L (1.2-3.4) K/uL Immature Gran # (Auto) 0.03 H (0.00-0.02) K/uL Glucose 138 H (70-99(Fasting)) mg/dl POC Glucose 203 H (70-99) mg/dl Globulin 1.9 L (2.5-4.0) gm/dl Albumin/Globulin Ratio 2.2 H (0.9-2) Diagnostic Findings Lumbar Spine CT 08/08/21 11:54 CT lumbar spine wo con CLINICAL HISTORY: Back Pain TECHNIQUE: Multidetector row helical CT of the lumbar spine was performed without administration of intravenous contrast. Coronal and sagittal reformations were obtained. Automated dose lowering techniques and/or adjustment according to patient size were utilized for this exam. Comparison: None available at the time of this dictation. FINDINGS: For counting purposes, the last complete intervertebral disc space is considered L5-S1. No acute fractures are identified. Degenerative changes are noted in the visualized spine. Vertebral body alignment is within normal limits. Vascular calcifications are seen. IMPRESSION: Degenerative changes without evidence of acute bony injury. ACT 112: Negative or not required by law. Electronically signed by: Chaz Blankenship M.D. 08/08/2021 12:52 PM Code Status & VTE Plan Code Status Full Code VTE Prophylaxis Plan VTE Prophylaxis will be ordered: Yes Supervising Physician Co-Signing Physician Notes Patient was seen and examined independently I discussed the case with Abbey WATTS I reviewed pertinent past medical social family history and also the plan of care and agree with the plan of care. Pt has presented with unprovoked non radicular low back pain. History of breast and prostate cancer s/p mastectomy on right and on lupron. Ct imaging of spine did not reveal any metastatic issues or compression fx and his pain is not suspicous of neural impingement, will treat symptomatically and eval for other issues especially UTI etc. Physical examination had intact lower extremity strength and reflexes. He does have a patch of nonblanchable erythema which is not well-circumscribed near the surgical bed from his right mastectomy. He has no significant increased discomfort and straight leg raising although is uncomfortable and sitting up in the bed remainder of his physical examination is unrevealing observation for pain control for back pain and also evaluation for secondary causes of somatic discomfort such as urinary tract infection or laboratory derangement Any exceptions will be noted below PG Care Time/CCT Total # of Minutes Spent Total Time Spent with Patient: Total time spent is greater than 50% in coordination of care (as documented) at patient's floor/unit and/or counseling patient: Coding Level of Care Code INT OBSERVATION CARE 70M LVL 3 Diagnoses Intractable low back pain M54.59 Diabetes mellitus, type II E11.9 Hypertension I10 Prostate cancer C61 Cancer of right male breast C50.121; Z17.0 Breast location: central portion of breast Estrogen receptor status: positive CAD (coronary artery disease) I25.10 HLD (hyperlipidemia) E78.5 (1) Cancer of right male breast Breast location: central portion of breast Estrogen receptor status: positive Qualified Code(s): C50.121 - Malignant neoplasm of central portion of right ma le breast; Z17.0 - Estrogen receptor positive status [ER+]
[2021-08-08] MEDS ORDERED: MoRPHine SULFATE 2 MG/ML CARP IV PRN (15:08)
[2021-08-08 15:34] LABS: Basophils # (auto) 0.03 K/uL (0-0.2); Basophils % (auto) 0.4 %; Eosinophils # (auto) 0.17 K/uL (0-0.5); Eosinophils % (auto) 2.2 %; Hematocrit (blood only) 44.8 % (42-52); Immature Granulocytes # (auto) 0.03 K/uL (0.00-0.02); Immature Granulocytes % (auto) 0.4 %; Lymphocytes # (auto) 0.99 K/uL (1.2-3.4); Lymphocytes % (auto) 12.9 %; Mean Corpuscular Hemoglobin 29.8 pg (25-34); Mean Corpuscular Hgb Conc 33.5 g/dL (32-36); Mean Corpuscular Volume 89.1 fL (80-100); Mean Platelet Volume 9.9 fL (7.4-10.4); Monocytes # (auto) 0.13 K/uL (0.11-0.59); Monocytes % (auto) 1.7 %; Neutrophils # (auto) 6.35 K/uL (1.4-6.5); Neutrophils % (auto) 82.4 %; Platelet Count 127 K/uL (130-400); RDW Standard Deviation 45.7 fL (36.4-46.3); Red Blood Count 5.03 M/uL (4.7-6.1)
[2021-08-08 15:55] LABS: Albumin Globulin Ratio 2.2 (0.9-2); Albumin Level 4.2 gm/dl (3.4-5.0); Bilirubin,Total 0.5 mg/dl (0.2-1.0); Creatinine Clr Calc Pharmacy 85.5 ml/min; Est GFR (African American) 94.5 ml/min; Est GFR (Non-African American) 81.5 ml/min; Globulin 1.9 gm/dl (2.5-4.0); Magnesium 1.9 mg/dl (1.7-2.4); Potassium 4.5 mmol/L (3.5-5.1); Total Protein 6.1 gm/dl (6.0-8.3)
[2021-08-08] MEDS ORDERED: DEXTROSE 50% 50 ML SYRINGE IV PRN (16:08)
[2021-08-08] MEDS ORDERED: GLUCAGON FOR INJ 1 MG VIAL SQ PRN (16:08)
[2021-08-08] MEDS ORDERED: NITROGLYCERIN SL 0.4 MG/TAB TAB SL PRN (16:08)
[2021-08-08] MEDS ORDERED: CARBOHYDRATES FOR HYPOGLYCEMIA PO PRN (16:08)
[2021-08-08] MEDS ORDERED: ONDANSETRON INJ 2 MG/ML 2 ML VIAL IV PRN (16:08)
[2021-08-08] MEDS ORDERED: GLUCOSE 10 TABS/TUBE PO PRN (16:08)
[2021-08-08] MEDS ORDERED: POLYETHYLENE (MIRALAX) 17 GM PACK PO PRN (16:08)
[2021-08-08] MEDS ORDERED: GLUCOSE 40% GEL 15 GM TUBE PO PRN (16:08)
[2021-08-08] MEDS ORDERED: KETOROLAC TROMETHAMINE 15 MG/ML VIAL IV PRN (16:47)
[2021-08-08] MEDS ORDERED: ENOXAPARIN INJ 40 MG/0.4 ML SYR SQ SCH (17:00)
[2021-08-08 18:06] LABS: Appearance Urine Clear (Clear); Bilirubin Urine Negative (Negative); Blood Urine Negative (Negative); Color Urine Yellow; Glucose Urine UA Negative (Negative); Ketones Urine Negative (Negative); Leukocyte Esterase Urine Negative (Negative); Nitrite Urine Negative (Negative); Protein Urine Negative (Negative); Urobilinogen Urine Negative (Negative); pH Urine 6.5 (4.5-7.5)
[2021-08-08] MEDS: INSULIN ASPART PER UNIT SC SCH ×2 (18:07→21:17)
[2021-08-08] MEDS ORDERED: MELATONIN 3 MG TAB PO PRN (20:21)
[2021-08-08] MEDS: ACETAMINOPHEN 500 MG TAB PO PRN (20:32)
[2021-08-08] MEDS ORDERED: TAMSULOSIN HCL 0.4 MG CAP PO SCH (21:00)
[2021-08-08] MEDS ORDERED: SIMVASTATIN 20 MG TAB PO SCH (21:00)
[2021-08-08] MEDS: INSULIN GLARGINE SOLOSTAR 100 UNITS/ML 3 ML PEN SC SCH (21:18)
[2021-08-08 22:28] VITALS: O2SAT 94
[2021-08-09 08:01] VITALS: TEMP 98.5
[2021-08-09 08:26] LABS: Basophils # (auto) 0.01 K/uL (0-0.2); Basophils % (auto) 0.1 %; Eosinophils # (auto) 0.09 K/uL (0-0.5); Hematocrit (blood only) 41.6 % (42-52); Hemoglobin 14.5 g/dL (14.0-18.0); Immature Granulocytes # (auto) 0.01 K/uL (0.00-0.02); Immature Granulocytes % (auto) 0.1 %; Lymphocytes # (auto) 1.29 K/uL (1.2-3.4); Lymphocytes % (auto) 13.8 %; Mean Corpuscular Hemoglobin 30.7 pg (25-34); Mean Corpuscular Hgb Conc 34.9 g/dL (32-36); Mean Corpuscular Volume 87.9 fL (80-100); Mean Platelet Volume 9.8 fL (7.4-10.4); Monocytes % (auto) 5.3 %; Neutrophils # (auto) 7.48 K/uL (1.4-6.5); Neutrophils % (auto) 79.7 %; Platelet Count 128 K/uL (130-400); RDW Standard Deviation 45.1 fL (36.4-46.3); Red Blood Count 4.73 M/uL (4.7-6.1); White Blood Count 9.38 K/uL (4.8-10.8)
[2021-08-09 08:46] LABS: Albumin Globulin Ratio 1.7 (0.9-2); Albumin Level 3.8 gm/dl (3.4-5.0); Bilirubin,Total 0.4 mg/dl (0.2-1.0); Calcium 8.9 mg/dl (8.5-10.1); Creatinine Clr Calc Pharmacy 75.7 ml/min; Est GFR (African American) 83.2 ml/min; Est GFR (Non-African American) 71.8 ml/min; Globulin 2.2 gm/dl (2.5-4.0); Potassium 4.4 mmol/L (3.5-5.1)
[2021-08-09] MEDS ORDERED: METOPROLOL SUCC 50MG EXT REL TAB PO SCH (09:00)
[2021-08-09] MEDS ORDERED: ANASTROZOLE 1 MG TAB PO SCH (09:00)
[2021-08-09] MEDS ORDERED: METOPROLOL SUCC 25MG EXT REL TAB PO SCH (09:00)
[2021-08-09] MEDS ORDERED: ASPIRIN 81 MG CHEW PO SCH (09:00)
[2021-08-09] MEDS ORDERED: lisinopril 5 MG TAB PO SCH (09:00)
[2021-08-09] MEDS ORDERED: allopurinoL 300 MG TAB PO SCH (09:00)
[2021-08-09 09:20] VITALS: BP 127/68; PULSE 57
[2021-08-09] MEDS: INSULIN GLARGINE SOLOSTAR 100 UNITS/ML 3 ML PEN SC SCH (09:23)
[2021-08-09] MEDS: INSULIN ASPART PER UNIT SC SCH ×2 (09:27→12:36)
[2021-08-09] MEDS: ACETAMINOPHEN 500 MG TAB PO PRN (11:05)
--- NOTE | 2021-08-09 14:40 | Discharge Summary ---
Date of Service August 09, 2021 Admission HPI Per Admitting Provider This is a 79-year-old male with PMH of CAD, DM II, HTN, HLD, breast cancer on anastrozole, and prostate cancer on Lupron who presents with acute worsening of back pain since this morning. Patient states he has been having ongoing low back pain for the past 3-4 weeks which he has been successfully been managing at home with Tylenol, however this morning, patient reports new onset of back pain that is making ambulation near impossible. He states it is left sided without radiation across his back or down his groin/legs. This pain is somewhat different than his usual pain, this is stabbing and aching with some alleviation achieved with Tylenol. Pain is much better with lying still and exacerbated with any movement. He does not recall any recent strenuous activity or traumatic events to incite this pain, does report while making his bed last evening he "jammed his right leg" somehow, but the pain that led to presentation today is left sided. He has had more fatigue than usual and increased urinary frequency for a week or so, but otherwise no fever/chills, myalgias, night sweats, sudden weight loss, nocturnal back pain, urinary or bowel incontinence, numbness/tingling in groin or either legs, abdominal pain, nausea/vomiting, no dysuria, hematuria, or change in bowel habits. in ED, CT of lumbar spine was performed--> Degenerative changes without evidence of acute bony injury. Routine labs ordered, CBC and BMP unremarkable, UA unremarkable. Patient received 4 mg IV morphine, 40 mg IV SoluMedrol, and a lidocaine patch for pain as well as a 1/2 L NS bolus in ED with moderate relief of pain. Hospitalist service consulted for evaluation and admission. Principal Diagnosis Intractable back pain Discharge Data Allergies Allergy/AdvReac Type Severity Reaction Status Date / Time Bactrim Allergy Mild RASH Verified 11/01/17 11:02 sulfamethoxazole Allergy Mild RASH Verified 08/08/21 15:06 trimethoprim Allergy Mild RASH Verified 08/08/21 15:06 Penicillins Allergy Unknown Unknown Verified 08/08/21 15:06 Consultations 08/08/21 14:11 ED Decision to Admit Stat Ordered Studies Lumbar Spine CT 08/08/21 11:54 CT lumbar spine wo con CLINICAL HISTORY: Back Pain TECHNIQUE: Multidetector row helical CT of the lumbar spine was performed without administration of intravenous contrast. Coronal and sagittal reform ations were obtained. Automated dose lowering techniques and/or adjustment according to patient size were utilized for this exam. Comparison: None available at the time of this dictation. FINDINGS: For counting purposes, the last complete intervertebral disc space is considered L5-S1. No acute fractures are identified. Degenerative changes are noted in the visualized spine. Vertebral body alignment is within normal limits. Vascular calcifications are seen. IMPRESSION: Degenerative changes without evidence of acute bony injury. ACT 112: Negative or not required by law. Electronically signed by: Chaz Blankenship M.D. 08/08/2021 12:52 PM 08/09/21 07:42 08/09/21 07:42 Hospital Course (1) Intractable low back pain: -Without fever/chills, weight loss, nocturnal pain, night sweats, no incontinence/constipation or paraesthesias, no acute injury, CT of lumbar spine did not show acute fracture or met dz. No radiation of pain. Labs including CBC, BMP, UA unremarkable. -Takes Tylenol at home for pain which was continued at 1000mg TID, also lid ocaine patch and Toradol, as well as morphine ordered PRN for breakthrough pain. -This morning, pt noted pain had resolved and had no further complaints -Was able to ambulate to the bathroom with assist of walker -PT/OT ordered, recommended ongoing home PT services which will be arranged by case management prior to discharge -At this time, he can continue APAP as needed for pain, not to exceed 3g total daily. Will also send rx for Voltaren gel (or Diclofenac)-utilize small amount and apply directly to affected area. Will need to wash hands immediately after use. (2) CAD (coronary artery disease): -s/p acute inferolateral [place] 1999 treated with thrombolytic therapy; cardiac cath in 1999 - moderate nonocclusive atherosclerotic coronary disease all 3 vessels with significant lesion 50% narrowing right coronary artery, occlusive lesion origin 1st diagonal. Preserved LV function." -Continue lisinopril, ASA 81mg daily and simvastatin 20mg PO qHS. -No concerning symptoms of ischemia during his stay observed or reported (3) Hypertension: -Continue lisinopril 5 mg daily. (4) Diabetes mellitus, type II: -Hold glipizide and metformin while inpatient. -Accuchek ACHS and placed on Lantus/log combo during his stay -He can resume his routine diabetic medication regimen upon discharge (5) HLD (hyperlipidemia): -Continue simvastatin 20 mg daily. (6) Prostate cancer: -Dx in 2019 as time of breast CA recurrence. -Lupron injections monthly. 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 -Continue anastrazole, as well as Lupron for prostate CA. Total Time Total Time Spent Total Time Spent (In Minutes): <30 minutes Discharge Plan Discharge Items Patient Disposition: Home - Home Health Services Reason For Visit: LOWER BACK PAIN Discharge Diagnosis: low back pain Activity: As commented below Activity Comment: with assistance of walker as tolerated Non-emergency contact: Primary Care Provider Call non-emergency contact if: you have any medication questions, your symptoms worsen and your pain is not controlled Follow-up/Referrals: Patel Scott MD [Primary Care Provider] - Diet: Carb Consistent or DM2 Addtl Attending Provider Instructions: You were hospitalized due to low back pain, at this time no obvious abnormal ities were noted on the image that was taken of your lumbar spine. Would recommend that you continue physical therapy at home which can help relieve lower back discomfort utilizing a combination of stretching, massage, and exercises. This will be set up for you and they will see you in your home. For pain, we would recommend over the counter Tylenol to be taken as directed on the label. Do not exceed more than 3g in a 24-hour period of time. Will also send a prescription for Diclofenac gel that you can apply to your lower back. Wash your hands immediately after applying gel to affected area. If insurance will not pay for this medication, you can purchase it over the counter. You can use moist heat to the affected area in 20 minute intervals. Recommend follow up with your primary care provider within 7-10 days of discharge from the hospital. Pending Studies at Discharge: No Stand-Alone Forms: [employer], Smoking Cessation Medications and DC Order Prescriptions: New diclofenac sodium 1 % gel 2 g topical QID Qty: 100 RF: 0 Continued Lupron Depot 7.5 mg syringe kit 7.5 mg IM MONTHLY RF: 0 anastrozole [Arimidex] 1 mg tablet 1 mg PO DAILY RF: 0 simvastatin 20 mg Tablet 20 mg PO HS RF: 0 nitroglycerin [Nitrostat] 0.4 mg Tablet, Sublingual 1 tab Sublingual DIRECTED PRN (Reason: Chest Pain) RF: 0 aspirin 81 mg Tablet,Chewable 81 mg PO QAM RF: 0 allopurinol 300 mg Tablet 300 mg PO QAM RF: 0 glipizide 5 mg Tablet 5 mg PO BID RF: 0 Probiotic Complex 25 billion cell -100 mg capsule 1 cap PO UD PRN (Reason: stomach discomfort) RF: 0 lisinopril 5 mg tablet 5 mg PO DAILY RF: 0 metformin 500 mg Tablet 500 mg PO DAILY RF: 0 metoprolol succinate 50 mg tablet extended release 24 hr 50 mg PO DAILY RF: 0 tamsulosin 0.4 mg capsule 0.4 mg PO HS RF: 0 Discharge Orders: Discharge Order (Routine); Ordered 08/09/21 Ordered By: Cecilia Melendez Admission Data Admit Date/Time: 08/08/21 14:45 Attending Provider: Marcus Basilio Admit Provider: Pedro Hameed Primary Care Provider: Patel Scott Other Providers: Pedro Hameed ; [facility] Other Interventions: Discharge Summary Assessment (RN) Last Done: 08/09/21 14:35 Coding Level of Care Code 91366 OBS Care - Discharge Diagnoses Intractable low back pain M54.59 CAD (coronary artery disease) I25.10 Hypertension I10 Diabetes mellitus, type II E11.9 HLD (hyperlipidemia) E78.5 Prostate cancer C61 Cancer of right male breast C50.121; Z17.0 Breast location: central portion of breast Estrogen receptor status: positive Home Health Attestation I certify that this patient is under my care and that I, or a physicians hr assistant working with me, had a face to-face encounter that meets the home health [id number] encounter requirements with this patient. The encounter with the patient was in whole, or in part, for the following medical condition, which is the primary reason for home health care (list medical condition): I certify that, based on my findings, the following services are medically necessary home health services: My clinical findings support the need for the above services because: Further, I certify that my clinical findings support that this patient is homebound (i.e. absences from home require considerable and taxing effort and are for medical reasons or mandaen services or infrequently or of short duration when for other reasons) because: Certification for Home Health Services: Based on the above findings, I certify that this patient is confined to the home and needs intermittent care home care, physical therapy and/or speech therapy or continues to need occupational therapy. The patient is under my care, and I have initiated the establishment of the plan of care. This patient will be followed by a physician who will periodically review the plan of care.
[2021-08-10 07:27] LABS: Estimated Average Glucose 143 mg/dl; Hemoglobin A1C 6.6 % (4.5-5.6)
== END 2021-08-09 15:52 | disposition home health service (06) ==
LOC: 3W 11:35 → ED 11:35 → SUATTDRO 14:45 → 3W 16:30

== ENCOUNTER 2022-06-01 13:26 | Inpatient (IN) ==
[2022-06-01 15:16] LABS: Influenza B virus by PCR Negative (Neg); RSV by PCR Negative (Neg); SARS CoV2 RNA(COVID-19) Ceph NEGATIVE (Negative)
[2022-06-01 15:34] LABS: Influenza A virus by PCR Positive (Neg)
--- NOTE | 2022-06-01 17:15 | XRay Report ---
XR chest 2V PA/lateral CLINICAL HISTORY: weak TECHNIQUE: 2 views of the chest were obtained. Comparison: Comparison is made to chest radiograph 01/17/2020 FINDINGS: No lines and tubes are seen. Calcified aortic knob is seen. The lungs are clear. No evidence of pleur al effusion or pneumothorax. IMPRESSION: No acute chest disease. ACT 112: Negative or not required by law. Electronically signed by: Chaz Blankenship M.D. 06/01/2022 5:13 PM
[2022-06-01] MEDS ORDERED: SODIUM CHLORIDE 0.9% 1000ML 500 ML IV ONE (18:39)
[2022-06-01] MEDS ORDERED: OSELTAMIVIR PHOSPHATE 75 MG CAP PO STA (18:39)
--- NOTE | 2022-06-01 18:44 | Emergency Department Note ---
Impression & Plan Weakness, Influenza A, Urinary incontinence ED Provider Note NAME: KANNAN BENNETT AGE: 81 SEX: M : 1940 ARRIVES VIA: Ambulance INFORMANT: [Patient][] ED PROVIDER(S): [Olvin Gifford MD] CHIEF COMPLAINT: Weakness, flulike symptoms HISTORY OF PRESENT ILLNESS: The patient is a 81-year-old male who has had shortness of breath, cough, body aches for the last 3 days. There was a low-grade fever at home but nothing recorded by EMS. The patient has had urinary incontinence. He just cannot make it to the bathroom. No vomiting or diarrhea. The patient is quite weak. He cannot do anything really on his own and his is concerned that he will fall. He actually fell out of bed and they had a very difficult time getting him back up in the bed. The patient has had several weeks of right-sided abdominal pain. This pain seems to come and go. It is minimal to moderate in severity. He has not seen a doctor's office for this discomfort. The patient has a history of an MT in 1998, he has no lung disease. REVIEW OF SYSTEMS: See HPI for pertinent positives and negatives. A total of ten systems were reviewed and were otherwise negative. PMHx/PSHx: See Below SOCIAL HISTORY: See Below. PHYSICAL EXAM: GENERAL: Patient is in no acute distress. HEENT: No acute trauma, normocephalic atraumatic, mucous membranes moist, no nasal congestion, no scleral icterus. NECK: No stridor, no adenopathy, no meningismus, trachea is midline. LUNGS: Clear to auscultation bilaterally, no wheeze, no rhonchi, breath sounds equal. HEART: Without murmurs gallops or rubs, regular rate and rhythm. Heart tones are distant. ABDOMEN: Soft, nontender, bowel sounds positive, no peritonitis. EXTREMITIES: No cyanosis or edema, full range of motion of all the joints without pain or difficulty, no signs for acute trauma. NEUROLOGIC: Oriented x 3, no acute motor or sensory deficits, no focal weakness. SKIN: No rash, no jaundice, no diaphoresis. DIFFERENTIAL DIAGNOSIS: Infection, dehydration, RSV, COVID-19, influenza, UTI, metabolic abnormality, hypo/hyperglycemia, electrolyte disturbance, anemia, hypoxia, cardiac sources, intracerebral event, toxicologic issues, stroke, TIA, as well as other pathologies. EMERGENCY DEPARTMENT COURSE/PROCEDURES: ECG: Indication was weakness. The ECG shows a sinus rhythm with a first- degree AV block. The rate is 71. There is no ST elevation, no PVCs P the QTc is 417. Continuous Cardiac Monitoring: An order was placed for continuous cardiac monitoring. The monitor shows a rate of 75 with normal sinus rhythm. MEDICAL DECISION MAKING: There is a slight leukocytosis which would be consistent with infection. There is a normal hemoglobin and platelet count. No renal failure or significant electrolyte abnormality. No concerning liver enzyme elevation. Patient appeared to be in a euthyroid state. ECG shows a sinus rhythm with a first- degree AV block. No acute ischemia. Cardiac enzyme testing x1 is not consistent with acute cardiac injury. Chest x-ray does not show pneumonia or CHF. No pneumothorax. COVID and RSV test returned negative. Influenza test returned positive. The patient presents with weakness, urinary incontinence. He was found to have influenza A by testing. Patient was given a 500 cc bolus, he received oral Tamiflu. I suspect the patient's weakness and his complaints are from the influenza infection. He is, at this point, not safe to be discharged home as he is too weak to care for himself and is a fall risk. He did fall out of bed once already. I spoke with the patient and his , I spoke with case management, the on-call hospitalist was consulted. Past Med/Surg History Medical History Anemia BPH (benign prostatic hyperplasia) Breast cancer in male Right Breast - Diagnosed 03/09/18 - Invasive Ductal ER/IL+, HER2- Now with recurrence CAD (coronary artery disease) "s/p acute inferolateral MT 1999 treated with thrombolytic therapy Cardiac cath in 1999 - moderate nonocclusive atherosclerotic coronary disease all 3 vessels with significant lesion 50% narrowing right coronary artery, occlusive lesion origin 1st diagonal. Preserved LV function." Diabetes mellitus, type II DM type 2 (diabetes mellitus, type 2) on Glipizide GERD (gastroesophageal reflux disease) Gout Hyperlipidemia Hypertension Myocardial Infarction 1999 Osteoarthritis Temporary low platelet count History of Thyroid nodule BIOPSY AND BEING MONITORED Surgical History H/O colonoscopy "06/23/10- polyp x1- adenomatous tissue, internal hemorrhoids 08/09/13- one 5 mm polyp in descending colon- tubular adenoma" History of cardiac cath 1999 History of cataract surgery Early 1999' History of lumpectomy of right breast 04/25/18, 03/06/19 History of tooth extraction 2013 Family History Mother , Passed age 91 of MT No problems noted. Father , Passed age 53 of MT No problems noted. Brother No problems noted. Brother No problems noted. Brother Prostate cancer, Onset Age: 50 attributes to agent orange Brother , Passed age 19 of MT No problems noted. Brother , Passed age 33 of Brain Aneurysm No problems noted. Sister No problems noted. Sister No problems noted. Sister No problems noted. Son No problems noted. Son Myocardial infarction, Onset Age: 38 Daughter No problems noted. 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 Feels Safe at Home: Yes Childhood Exposure to Second-Hand Smoke: Yes caffeine: Yes (2 Cups of Coffee/day) during the past year weight has: remained stable Dental Care, Regularly: Yes Assistive Devices: Walker Allergies Allergies Allergy/AdvReac Type Severity Reaction Status Date / Time Penicillins Allergy Intermediate RASH/CONFUS Verified 06/01/22 19:07 ION sulfamethoxazole Allergy Intermediate RASH Verified 06/01/22 19:07 trimethoprim Allergy Intermediate RASH Verified 06/01/22 19:07 Home Meds Home Medications Medication Instructions Recorded Confirmed allopurinol 300 mg tablet 300 mg PO QAM 02/02/18 06/01/22 aspirin 81 mg chewable tablet 81 mg PO HS 02/02/18 06/01/22 glipizide 5 mg tablet 5 mg PO DAILY 02/02/18 06/01/22 nitroglycerin 0.4 mg sublingual 1 tab sublingual DIRECTED PRN 02/02/18 06/01/22 tablet (Nitrostat) Chest Pain simvastatin 20 mg tablet 20 mg PO HS 02/02/18 06/01/22 anastrozole 1 mg tablet (Arimidex) 1 mg PO DAILY 04/05/19 06/01/22 leuprolide 7.5 mg intramuscular 7.5 mg IM MONTHLY 04/05/19 06/01/22 syringe kit (Lupron Depot) lisinopril 5 mg tablet 5 mg PO DAILY 01/17/20 06/01/22 L.acidophilus-B.animalis-B.bifidum 1 cap PO UD PRN stomach discomfort 04/17/20 06/01/22 25 billion cell-FOS 100 mg capsule (Probiotic Complex) metformin 500 mg tablet 500 mg PO BIDM 08/08/21 06/01/22 metoprolol succinate 50 mg 50 mg PO HS 08/08/21 06/01/22 tablet,extended release 24 hr tamsulosin 0.4 mg capsule 0.4 mg PO HS 08/08/21 06/01/22 calcium carbonate 600 mg-vitamin 1 tab PO QDD 06/01/22 06/01/22 D3 10 mcg (400 unit) tablet (Calcium 600 + D(3)) metoprolol succinate 25 mg 25 mg PO HS 06/01/22 06/01/22 tablet,extended release 24 hr Results & Data (ED) Vital Signs Vital Signs - 24 hr 06/01/22 13:45 06/01/22 20:01 Temperature 36.9 C Temperature Source Temporal Artery Scan Pulse Rate 75 Pulse Rate [Apical] 75 Pulse Rhythm [Apical] Regular Pulse Strength [Apical] Normal Respiratory Rate 20 18 Respiratory Effort / Characteristics Non-Labored Spontaneous Non-Labored Respiratory Depth Normal Normal Respiratory Pattern Regular Regular Blood Pressure 101/61 Blood Pressure [Left Arm] 132/76 Blood Pressure Mean 74 Blood Pressure Mean [Left Arm] 94 Blood Pressure Position Sitting Blood Pressure Position [Left Arm] Lying Pulse Oximetry 97 98 Oxygen Delivery Method Room Air Room Air Sepsis Recent Fever Within 48 Hours No Sepsis New/Unexplained Change in Mental Status N/A Sepsis Action Taken by Nursing No Action Required Home Medications Current Medication List: was personally reviewed by me Laboratory Data Attestation: I reviewed the patient's lab results. Result diagrams: 06/01/22 19:19 06/01/22 20:38 Lab Results 06/01/22 06/01/22 06/01/22 Range/Units 13:50 19:19 19:19 WBC 10.82 H (4.8-10.8) K/ul RBC 5.25 (4.63-6.08) M/uL Hgb 15.7 (14.0-18.0) g/dl Hct 47.1 (40.1-51.0) % MCV 89.7 (80.0-100.0) fL MCH 29.9 (25.0-34.0) pg MCHC 33.3 (32.0-36.0) g/dL RDW Std Deviation 45.2 (36.4-46.3) fL RDW Coeff of [place]urn[place] 13.7 (11.5-14.5) % Plt Count 134 (130-400) K/uL MPV 9.7 (9.4-12.4) fL Immature Gran % (Auto) 0.2 % Neut % (Auto) 82.3 % Lymph % (Auto) 9.1 % [place] % (Auto) 5.0 % Eos % (Auto) 2.8 % Baso % (Auto) 0.6 % Neut # (Auto) 8.91 H (1.4-6.5) K/uL Lymph # (Auto) 0.99 L (1.2-3.4) K/uL [place] # (Auto) 0.54 (0.24-0.82) K/uL Eos # (Auto) 0.30 (0-0.50) K/uL Baso # (Auto) 0.06 (0-0.2) K/uL Immature Gran # (Auto) 0.02 (0.00-0.02) K/uL Sodium Cancelled Potassium Cancelled Chloride Cancelled Carbon Dioxide Cancelled Anion Gap Cancelled BUN Cancelled Creatinine Cancelled Est Cr Clr Drug Dosing Cancelled Est GFR ( Amer) Cancelled Est GFR (Non-Af Amer) Cancelled BUN/Creatinine Ratio Cancelled Glucose Cancelled POC Glucose (70-99) mg/dl Calcium Cancelled Magnesium Total Bilirubin Cancelled AST Cancelled ALT Cancelled Alkaline Phosphatase Cancelled Troponin I High Sens Total Protein Cancelled Albumin Cancelled Globulin Cancelled Albumin/Globulin Ratio Cancelled TSH SARS-CoV-2 (PCR) NEGATIVE (Negative) Influenza Type A (PCR) Positive A* (Neg) Influenza Type B (PCR) Negative (Neg) RSV (RT-PCR) Negative (Neg) 06/01/22 06/01/22 06/01/22 Range/Units 19:19 19:19 20:11 WBC (4.8-10.8) K/ul RBC (4.63-6.08) M/uL Hgb (14.0-18.0) g/dl Hct (40.1-51.0) % MCV (80.0-100.0) fL MCH (25.0-34.0) pg MCHC (32.0-36.0) g/dL RDW Std Deviation (36.4-46.3) fL RDW Coeff of [place] (11.5-14.5) % Plt Count (130-400) K/uL MPV (9.4-12.4) fL Immature Gran % (Auto) % Neut % (Auto) % Lymph % (Auto) % [place] % (Auto) % Eos % (Auto) % Baso % (Auto) % Neut # (Auto) (1.4-6.5) K/uL Lymph # (Auto) (1.2-3.4) K/uL [place] # (Auto) (0.24-0.82) K/uL Eos # (Auto) (0-0.50) K/uL Baso # (Auto) (0-0.2) K/uL Immature Gran # (Auto) (0.00-0.02) K/uL Sodium Potassium Chloride Carbon Dioxide Anion Gap BUN Creatinine Est Cr Clr Drug Dosing Est GFR ( Amer) Est GFR (Non-Af Amer) BUN/Creatinine Ratio Glucose POC Glucose 157 H (70-99) mg/dl Calcium Magnesium Cancelled Total Bilirubin AST ALT Alkaline Phosphatase Troponin I High Sens Cancelled Total Protein Albumin Globulin Albumin/Globulin Ratio TSH Cancelled SARS-CoV-2 (PCR) (Negative) Influenza Type A (PCR) (Neg) Influenza Type B (PCR) (Neg) RSV (RT-PCR) (Neg) Administered Medications Albuterol (Albut/Ipratrop 3mg/0.5mg Neb 3 Ml Vial) 3 ml NEB QIDR VIVEK; Protocol Stop: 07/01/22 18:59 Last Admin: 06/01/22 20:12 Dose: 3 ml Documented By: LRS Aspirin (Aspirin 81 Mg Ectab) 81 mg PO HS VIVEK Stop: 07/01/22 21:14 Last Admin: 06/01/22 21:47 Dose: 81 mg Documented By: ROBI Lactated Ringer's (Lr) 1,000 mls @ 80 mls/hr IV .[id number] VIVEK Stop: 06/02/22 21:29 Last Admin: 06/01/22 20:57 Dose: 80 mls/hr Documented By: ROBI Insulin Aspart (Insulin Aspart Per Unit) 0 units SC ACHS VIVEK Stop: 07/01/22 20:59 Last Admin: 06/01/22 20:20 Dose: Not Given Documented By: ROBI Insulin Glargine (Lantus Per Unit Charge) 5 units SQ BID VIVEK Stop: 07/01/22 20:59 Last Admin: 06/01/22 20:25 Dose: 5 units Documented By: ROBI Co-signed By: RENÉE Metoprolol Succinate (Metoprolol Succ 25mg Ext Rel Tab) [address] [facility] Stop: 07/01/22 21:09 Last Admin: 06/01/22 21:47 Dose: 75 mg Documented By: ROBI Simvastatin (Simvastatin 20 Mg Tab) 20 mg PO [facility] Stop: 07/01/22 21:09 Last Admin: 06/01/22 21:47 Dose: 20 mg Documented By: ROBI Tamsulosin HCl (Tamsulosin Hcl 0.4 Mg Cap) 0.4 mg PO [facility] Stop: 07/01/22 21:09 Last Admin: 06/01/22 21:47 Dose: 0.4 mg Documented By: ROBI Discontinued Medications Sodium Chloride (Nss 1000ml) 500 mls @ 999 mls/hr IV .Q31M ONE Stop: 06/01/22 19:09 Last Infusion: 06/01/22 20:50 Dose: 0 mls/hr Documented By: Admin: 06/01/22 20:12 Dose: 999 mls/hr Documented By: ROBI Miscellaneous (Patient's Height &/Or Weight Needed) 1 each N/A ONE STA Stop: 06/01/22 19:48 Last Admin: 06/01/22 20:18 Dose: 1 each Documented By: ROBI Oseltamivir Phosphate (Oseltamivir Phosphate 75 Mg Cap) 75 mg PO NOW STA; Protocol Stop: 06/01/22 18:40 Last Admin: 06/01/22 20:12 Dose: 75 mg Documented By: LRS Imaging Data Radiologist's Impression: Chest X-Ray 06/01/22 16:12 XR chest 2V PA/lateral CLINICAL HISTORY: weak TECHNIQUE: 2 views of the chest were obtained. Comparison: Comparison is made to chest radiograph 01/17/2020 FINDINGS: No lines and tubes are seen. Calcified aortic knob is seen. The lungs are clear. No evidence of pleural effusion or pneumothorax. IMPRESSION: No acute chest disease. ACT 112: Negative or not required by law. Electronically signed by: Chaz Blankenship M.D. 06/01/2022 5:13 PM Discharge Plan Visit Data Chief Complaint: Flu Like Symptoms ED Provider: Olvin Gifford Discharge Problem: Weakness, Influenza A, Urinary incontinence Patient Disposition: Admitted As Inpatient Condition: Fair Discharge Instructions Interventions: ED Discharge Assessment Last Done: 06/01/22 21:11
[2022-06-01] MEDS ORDERED: GLUCOSE 40% GEL 15 GM TUBE PO PRN (19:03)
[2022-06-01] MEDS ORDERED: CARBOHYDRATES FOR HYPOGLYCEMIA PO PRN (19:03)
[2022-06-01] MEDS ORDERED: GLUCAGON FOR INJ 1 MG VIAL SQ PRN (19:03)
[2022-06-01] MEDS ORDERED: DEXTROSE 50% 50 ML SYRINGE IV PRN (19:03)
[2022-06-01] MEDS ORDERED: GLUCOSE 10 TAB/TUBE PO PRN (19:03)
--- NOTE | 2022-06-01 19:13 | History & Physical Report ---
Date of Service June 01, 2022 Assessment & Plan (1) Generalized weakness: Plan: -Admit to med/tele -Patient is currently afebrile, hemodynamically stable, and stable on RA -Patient started developing URI symptoms approximately 3 days ago which has lead to progressive weakness and poor oral intake. While the patient is stable at this time he is high risk for further decompensation and falls -Found to be Influenza A positive and given 1L NSS bolus and one dose of Tamiflu in the waiting room prior to admission -Will continue with light IV fluid fluid hydration overnight with LR at 80 mL/hr X 2 bags -Will continue with BID dosing of Tamiflu for a total of 5 days of treatment -Monitor on tele/pulse oximetry -Incentive spirometry, flutter therapy, scheduled DuoNebs, and prn O2 ordered -PT/OT consults placed -FU with am CBC, CMP, and Mag -Will start with SCDs for DVT PPX, waiting on CMP to determine choice of chemical PPX (2) Influenza A: Plan: -See generalized weakness (3) Diabetes mellitus, type II: Plan: -Hold metformin and glipizide -Will start with BSG checks q6h until her can tolaerate PO intake -BSG goal of 110-140 -Lantus 5 units BID to start, adjust as needed -Correction factor of 45 and carb ratio of 15 -DM II diet (4) Hypertension: Plan: -Hemodynamically stable -Will continue metoprolol, hold lisinopril for now to avoid hypotension with his dehydration (5) BPH (benign prostatic hyperplasia): Plan: -Patient noted to have worsening urinary retention than his baseline -Will order bladder scans and straight cath protocol -Continue flomax (6) Prostate cancer: Plan: -Follows with [facility] Oncology and radiatio oncology -Currently gets monthly Lupron injections (7) GERD (gastroesophageal reflux disease): Plan: -Will give protonix while admitted (8) CAD (coronary artery disease): Plan: -Continue aspirin and metoprolol (9) Breast cancer in male: Plan: -Follows with [facility] Oncology and radiation oncology, S/P right mastectomy with recurrence. Now S/P radiation and currently on anastrozole -Continue anastrozole VTE ppx: Higher risk with known hx of cancer. Lovenox 40 mg SQ daily. Plan The patient was discussed with Dr. Amor at the time of the admission History of Present Illness Chief Complaint: Flu-like symptoms Primary Care Provider: Patel Scott MD Marcus is a 79-year-old male with PMH of CAD, DM II, HTN, HLD, GERD, breast cancer on anastrozole, and prostate cancer on Lupron who presented to the [facility] ED on 06/01/22 via EMS for progressive generalized weakness due to illness. In the ED the patient was found to be afebrile, hemodynamically stable, and stable on RA. Labs were remarkable for a leukocytosis of 10.82 with left shift of 8.91, stable Hgb, influenza A positive, Covid/Influenza B/RSV negative, Chest xray was read as "no active chest disease:. Prior to admission the patient was ordered 1L NSS bolus and one dose of 75 mg PO Tamiflu At the time of the exam the patient was resting comfortably in bed in no acute distress with his sitting bedside, history was obtained from both. They state the the patient began developing URI symptoms including congestion, a non-productive cough, body aches, and progressive generalized weakness. He had a fall out of bed yesterday. He states that he didn't want to wake his up to help him go to the bathroom and attempted to get out of bed himself. He states that his legs were weak and he fell to the ground, landing on his left shoulder and hip. He denies hitting his head or losing consciousness, and he is not on blood thinners. He denies pain at either of his left extremities and has no other pain from his fall. He came to the ED today because he has become so weak he cannot help his with his ADLs and they are concerned he will continue to falls. They state that his PO intake has been poor over the past 24 hours. He denies chest pain, abdominal pain, nausea, vomiting, diarrhea, dysuria, hematuria, diarrhea, melena, and bloody bowel movements. His confirms that he is still following with [facility] oncology and radiation oncology, he is still taking his Lupron and Anastrazole as prescribed. I spoke with them regarding code status, the patient is a Full Code and would want his to make decisions for him if he could not make them himself. Please refer to Dr. Amor's attestation for any changes to the treatment plan Allergies Allergy/AdvReac Type Severity Reaction Status Date / Time Penicillins Allergy Intermediate RASH/CONFUS Verified 06/01/22 19:07 ION sulfamethoxazole Allergy Intermediate RASH Verified 06/01/22 19:07 trimethoprim Allergy Intermediate RASH Verified 06/01/22 19:07 Home Medications Medication Instructions Recorded Confirmed Type allopurinol 300 mg tablet 300 mg PO QAM 02/02/18 06/01/22 History aspirin 81 mg chewable tablet 81 mg PO HS 02/02/18 06/01/22 History glipizide 5 mg tablet 5 mg PO DAILY 02/02/18 06/01/22 History nitroglycerin 0.4 mg sublingual 1 tab sublingual DIRECTED PRN 02/02/18 06/01/22 History tablet (Nitrostat) Chest Pain simvastatin 20 mg tablet 20 mg PO HS 02/02/18 06/01/22 History anastrozole 1 mg tablet (Arimidex) 1 mg PO DAILY 04/05/19 06/01/22 History leuprolide 7.5 mg intramuscular 7.5 mg IM MONTHLY 04/05/19 06/01/22 History syringe kit (Lupron Depot) lisinopril 5 mg tablet 5 mg PO DAILY 01/17/20 06/01/22 History L.acidophilus-B.animalis-B.bifidum 1 cap PO UD PRN stomach discomfort 04/17/20 06/01/22 History 25 billion cell-FOS 100 mg capsule (Probiotic Complex) metformin 500 mg tablet 500 mg PO BIDM 08/08/21 06/01/22 History metoprolol succinate 50 mg 50 mg PO HS 08/08/21 06/01/22 History tablet,extended release 24 hr tamsulosin 0.4 mg capsule 0.4 mg PO HS 08/08/21 06/01/22 History calcium carbonate 600 mg-vitamin 1 tab PO QDD 06/01/22 06/01/22 History D3 10 mcg (400 unit) tablet (Calcium 600 + D(3)) metoprolol succinate 25 mg 25 mg PO HS 06/01/22 06/01/22 History tablet,extended release 24 hr Past Med/Surg History Medical History Anemia BPH (benign prostatic hyperplasia) Breast cancer in male Right Breast - Diagnosed 03/09/18 - Invasive Ductal ER/SD+, HER2- Now with recurrence CAD (coronary artery disease) "s/p acute inferolateral [place] 1999 treated with thrombolytic therapy Cardiac cath in 1999 - moderate nonocclusive atherosclerotic coronary disease all 3 vessels with significant lesion 50% narrowing right coronary artery, occlusive lesion origin 1st diagonal. Preserved LV function." Diabetes mellitus, type II DM type 2 (diabetes mellitus, type 2) on Glipizide GERD (gastroesophageal reflux disease) Gout Hyperlipidemia Hypertension Myocardial Infarction 1999 Osteoarthritis Temporary low platelet count History of Thyroid nodule BIOPSY AND BEING MONITORED Surgical History H/O colonoscopy "06/23/10- polyp x1- adenomatous tissue, internal hemorrhoids 08/09/13- one 5 mm polyp in descending colon- tubular adenoma" History of cardiac cath 1999 History of cataract surgery Early 1999' History of lumpectomy of right breast 04/25/18, 03/06/19 History of tooth extraction 2013 Family History Mother , Passed age 91 of [place] No problems noted. Father , Passed age 53 of [place] No problems noted. Brother No problems noted. Brother No problems noted. Brother Prostate cancer, Onset Age: 50 attributes to agent orange Brother , Passed age 19 of [place] No problems noted. Brother , Passed age 33 of Brain Aneurysm No problems noted. Sister No problems noted. Sister No problems noted. Sister No problems noted. Son No problems noted. Son Myocardial infarction, Onset Age: 38 Daughter No problems noted. 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 Physical Exam Physical Exam: Physical Exam: General: In no acute distress, stated age, well-nourished, good hygiene, non- toxic appearing HEENT: Normocephalic, atraumatic, no scleral icterus, pupils around round, symmetrical, and reactive to light, dry mucus membranes, trachea midline, no thyromegaly Chest/Pulm: No respiratory distress, symmetrical chest expansion, clear breath sounds throughout Cardiac: RRR, no murmurs noted Abdomen: Negative for ascites and bruising, normoactive bowel sounds, soft, non-tender to palpation throughout Musculoskeletal: Symmetrical and without signs of acute trauma, upper and lower extremities with full ROM, no atrophy, spasticity, or flaccidity Extremities: Radial, dorsalis pedis, and posterior tibial pulses are intact and symmetrical, no edema noted in the BL LE's Skin: Warm, dry, no rashes , lesions, or scars noted Neuro: Alert and oriented to person, place, month, year, and president, no focal defects, CN II-XII tested and intact, no tremors noted Psych: No acute distress, calm and cooperative during the exam Results & Data Results & [facility] ([facility]) Vital Signs (Past 12 Hours) Vital Signs Temp Pulse Resp BP Pulse Ox O2 Del Method 06/01/22 13:45 36.9 C 75 20 101/61 97 Room Air Laboratory Results Abnormal lab results 06/01/22 06/01/22 06/01/22 Range/Units 13:50 19:19 20:11 WBC 10.82 H (4.8-10.8) K/ul Neut # (Auto) 8.91 H (1.4-6.5) K/uL Lymph # (Auto) 0.99 L (1.2-3.4) K/uL POC Glucose 157 H (70-99) mg/dl Influenza Type A (PCR) Positive A* (Neg) Diagnostic Findings Chest X-Ray 06/01/22 16:12 XR chest 2V PA/lateral CLINICAL HISTORY: weak TECHNIQUE: 2 views of the chest were obtained. Comparison: Comparison is made to chest radiograph 01/17/2020 FINDINGS: No lines and tubes are seen. Calcified aortic knob is seen. The lungs are clear. No evidence of pleural effusion or pneumothorax. IMPRESSION: No acute chest disease. ACT 112: Negative or not required by law. Electronically signed by: Chaz Blankenship M.D. 06/01/2022 5:13 PM ECG Additional Comments: Sinus rhythm with 1st degree A-V block Otherwise normal ECG When compared with ECG of 18-JAN-2020 07:07, No significant change was found Code Status & VTE Plan Code Status Full code VTE Prophylaxis Plan VTE Prophylaxis will be ordered: Yes Supervising Physician Co-Signing Physician Notes I supervised Karl Huynh PA-C on this admission. I interviewed and examined the patient independently of him. The plan is as written in the note except for any following changes/exceptions: None 81yo M w/ hx of prostate and recurrent breast cancer who presents with flu A and general weakness and falls at home. Overall, doing well from a respiratory standpoint. Will give IV fluids, get PT/OT, and continue supportive care. PG Care Time/CCT Total # of Minutes Spent Total Time Spent with Patient: Total time spent is greater than 50% in coordination of care (as documented) at patient's floor/unit and/or counseling patient: [place] [address] Initial Inpt Care Lvl 3 Patient Type Established Medical Decision Making High Complexity Diagnoses Generalized weakness R53.1 Influenza A J10.1 Diabetes mellitus, type II E11.9 Hypertension I10 BPH (benign prostatic hyperplasia) N40.0 Prostate cancer C61 GERD (gastroesophageal reflux disease) K21.9 CAD (coronary artery disease) I25.10 Breast cancer in male C50.929
[2022-06-01] MEDS ORDERED: Patient's HEIGHT &/or WEIGHT Needed STA (19:47)
[2022-06-01 19:54] LABS: Basophils # (auto) 0.06 K/uL (0-0.2); Basophils % (auto) 0.6 %; Eosinophils % (auto) 2.8 %; Hematocrit (blood only) 47.1 % (40.1-51.0); Hemoglobin 15.7 g/dl (14.0-18.0); Immature Granulocytes # (auto) 0.02 K/uL (0.00-0.02); Immature Granulocytes % (auto) 0.2 %; Lymphocytes # (auto) 0.99 K/uL (1.2-3.4); Lymphocytes % (auto) 9.1 %; Mean Corpuscular Hemoglobin 29.9 pg (25.0-34.0); Mean Corpuscular Hgb Conc 33.3 g/dL (32.0-36.0); Mean Corpuscular Volume 89.7 fL (80.0-100.0); Mean Platelet Volume 9.7 fL (9.4-12.4); Monocytes # (auto) 0.54 K/uL (0.24-0.82); Neutrophils # (auto) 8.91 K/uL (1.4-6.5); Neutrophils % (auto) 82.3 %; Platelet Count 134 K/uL (130-400); RDW Coefficient of Variation 13.7 % (11.5-14.5); RDW Standard Deviation 45.2 fL (36.4-46.3); Red Blood Count 5.25 M/uL (4.63-6.08); White Blood Count 10.82 K/ul (4.8-10.8)
[2022-06-01] MEDS: ALBUT/IPRATROP 3MG/0.5MG NEB 3 ML VIAL NEB SCH (20:12)
[2022-06-01] MEDS: INSULIN ASPART PER UNIT SC SCH (20:20)
[2022-06-01] MEDS: LANTUS PER UNIT CHARGE SQ SCH (20:25)
[2022-06-01] MEDS: LACTATED RINGER'S 1,000 ML IV SCH (20:57)
[2022-06-01 21:32] LABS: Albumin Globulin Ratio 1.6 (0.9-2); BUN Creatinine Ratio 19.8 (10-20); Bilirubin,Total 0.7 mg/dl (0.2-1.0); Calcium 9.3 mg/dl (8.5-10.1); Creatinine Clr Calc Pharmacy 70.5 ml/min; Est GFR (African American) 86.8 ml/min; Est GFR (Non-African American) 74.9 ml/min; Globulin 2.5 gm/dl (2.5-4.0); Magnesium 1.8 mg/dl (1.7-2.4); Total Protein 6.5 gm/dl (6.0-8.3)
[2022-06-01 21:35] LABS: Troponin I High Sensitivity 13.1 pg/ml (0-20)
[2022-06-01] MEDS: TAMSULOSIN HCL 0.4 MG CAP PO SCH (21:47)
[2022-06-01] MEDS: ASPIRIN 81 MG ECTAB PO SCH (21:47)
[2022-06-01] MEDS: METOPROLOL SUCC 25MG EXT REL TAB PO SCH (21:47)
[2022-06-01] MEDS: SIMVASTATIN 20 MG TAB PO SCH (21:47)
[2022-06-02 06:59] LABS: Hematocrit (blood only) 41.3 % (40.1-51.0); Hemoglobin 13.9 g/dl (14.0-18.0); Mean Corpuscular Hemoglobin 29.8 pg (25.0-34.0); Mean Corpuscular Hgb Conc 33.7 g/dL (32.0-36.0); Mean Corpuscular Volume 88.6 fL (80.0-100.0); Mean Platelet Volume 9.5 fL (9.4-12.4); Platelet Count 119 K/uL (130-400); RDW Coefficient of Variation 13.7 % (11.5-14.5); Red Blood Count 4.66 M/uL (4.63-6.08); White Blood Count 7.65 K/ul (4.8-10.8)
[2022-06-02 07:02] LABS: Albumin Globulin Ratio 1.6 (0.9-2); Albumin Level 3.6 gm/dl (3.4-5.0); BUN Creatinine Ratio 19.3 (10-20); Bilirubin,Total 0.6 mg/dl (0.2-1.0); Calcium 8.7 mg/dl (8.5-10.1); Creatinine Clr Calc Pharmacy 76.9 ml/min; Est GFR (African American) 94.7 ml/min; Est GFR (Non-African American) 81.7 ml/min; Globulin 2.3 gm/dl (2.5-4.0); Magnesium 1.9 mg/dl (1.7-2.4); Potassium 4.1 mmol/L (3.5-5.1); Total Protein 5.9 gm/dl (6.0-8.3)
[2022-06-02] MEDS: ALBUT/IPRATROP 3MG/0.5MG NEB 3 ML VIAL NEB SCH (07:14)
[2022-06-02 07:25] LABS: Appearance Urine Clear (Clear); Bacteria Urine Automated Negative (Negative); Bilirubin Urine Negative (Negative); Blood Urine Trace (Negative); Cast Urine Automated 0 /lpf (0-5); Color Urine Yellow; Epithelial Cell Urine Auto 0-5 /lpf (0-5); Glucose Urine UA Negative (Negative); Ketones Urine 1+ (Negative); Leukocyte Esterase Urine Negative (Negative); Nitrite Urine Negative (Negative); Protein Urine Trace (Negative); RBC Urine Automated 0-4 /hpf (0-4); Urobilinogen Urine Negative (Negative); pH Urine 5.5 (4.5-7.5)
[2022-06-02] MEDS ORDERED: ALBUT/IPRATROP 3MG/0.5MG NEB 3 ML VIAL NEB PRN (09:21)
--- NOTE | 2022-06-02 09:43 | Electrocardiogram Report ---
Test Reason : Blood Pressure : / mmHG Vent. Rate : 071 BPM Atrial Rate : 071 BPM P-R Int : 218 ms QRS Dur : 088 ms QT Int : 384 ms P-R-T Axes : 059 047 002 degrees QTc Int : 417 ms Sinus rhythm with 1st degree A-V block Otherwise normal ECG When compared with ECG of 18-JAN-2020 07:07, No significant change was found Confirmed by Sunday Chakraborty ([id number]) on 06/02/2022 9:42:57 AM Referred By: REFERRED SELF Confirmed By:Carlin Chakraborty
[2022-06-02] MEDS: guaiFENesin 600 MG TABCR PO SCH ×2 (10:06→21:21)
[2022-06-02] MEDS: PANTOprazole 40 MG in SYRINGE 0 ML IV SCH (10:06)
[2022-06-02] MEDS: allopurinoL 300 MG TAB PO SCH (10:06)
[2022-06-02] MEDS: ENOXAPARIN INJ 40 MG/0.4 ML SYR SQ SCH (10:06)
[2022-06-02] MEDS: ANASTROZOLE 1 MG TAB PO SCH (10:06)
[2022-06-02] MEDS: OSELTAMIVIR PHOSPHATE 75 MG CAP PO SCH ×2 (10:07→22:04)
[2022-06-02] MEDS: LACTATED RINGER'S 1,000 ML IV SCH (10:07)
[2022-06-02] MEDS: INSULIN ASPART PER UNIT SC SCH ×4 (10:08→21:20)
[2022-06-02] MEDS: LANTUS PER UNIT CHARGE SQ SCH ×2 (10:12→21:22)
--- NOTE | 2022-06-02 17:43 | Hospitalist Progress Note ---
Date of Service June 02, 2022 Assessment & Plan (1) Generalized weakness: Plan: Mr. Sarmiento is a 81 yo M who was admitted due to generalized weakness, found to be positive for flu A on admission - clinically improving; breathing well on room air, hemodynamically stable - WBC elevated to 10.82 on admission, now normalized - continue Tamiflu 75mg BID for 5 days - CXR without signs of focal consolidation, no concern for superimposed bacterial PNA - He is at high risk for complications due to overall frality and history of cancer. - Incentive spirometry, flutter therapy, scheduled DuoNebs, and prn O2 ordered If he clinically worsens overnight, repeat CXR, check WBC and procal. (2) Influenza A: Plan: -See above (3) Diabetes mellitus, type II: Plan: -Hold metformin and glipizide -Will start with BSG checks q6h until her can tolaerate PO intake -BSG goal of 110-140 -Lantus 5 units BID to start, adjust as needed -Correction factor of 45 and carb ratio of 15 -DM II diet (4) Hypertension: Plan: -Will continue metoprolol, hold lisinopril for now to avoid hypotension with his dehydration (5) BPH (benign prostatic hyperplasia): Plan: -Patient noted to have worsening urinary retention than his baseline -Will order bladder scans and straight cath protocol -Continue flomax (6) Prostate cancer: Plan: -Follows with [facility] Oncology and radiatio oncology -Currently gets monthly Lupron injections (7) GERD (gastroesophageal reflux disease): Plan: -Will give protonix while admitted (8) CAD (coronary artery disease): Plan: -Continue aspirin and metoprolol - DONNA on hold (9) Breast cancer in male: Plan: -Follows with [facility] Oncology and radiation oncology, S/P right mastectomy with recurrence. Now S/P radiation and currently on anastrozole -Continue anastrozole VTE ppx: Higher risk with known hx of cancer. Lovenox 40 mg SQ daily. Diet: DMII Code: Full Dispo: Med/tele, PT/OT ordered Admission and Anticipated Discharge Date Admission Date: June 01, 2022 Subjective Says he feels better, but still weak. Review of Systems Constitutional: as per Subjective / HPI Physical Exam Constitutional: WD/WN, vitals as above Eyes: + anicteric sclerae ENMT: external ear and nose normal, oropharynx normal Neck: trachea midline, no thyromegaly Respiratory: normal respiratory effort and + cough Auscultation: + rhonchi Cardiovascular: RRR, no murmur, no edema Musculoskeletal: Head/Neck/Chest: normocephalic and head atraumatic Skin: no rashes, warm and dry Neurologic: moves all extremities Psychiatric: A+Ox3, euthymic affect Results & Data Results & Data ([facility]) Vital Signs (Past 12 Hours) Vital Signs Pulse Resp Pulse Ox O2 Del Method 06/02/22 12:00 Room Air 06/02/22 07:15 64 18 93 Room Air PG Care Time/CCT Total # of Minutes Spent Total Time Spent with Patient: Total time spent is greater than 50% in coordination of care (as documented) at patient's floor/unit and/or counseling patient: Coding Level of Care Code 09312 Inpt Consult Level 2 Diagnoses Generalized weakness R53.1 Influenza A J10.1 Diabetes mellitus, type II E11.9 Hypertension I10 BPH (benign prostatic hyperplasia) N40.0 Prostate cancer C61 GERD (gastroesophageal reflux disease) K21.9 CAD (coronary artery disease) I25.10 Breast cancer in male C50.929
[2022-06-02] MEDS: CALCIUM 600MG + VIT D 400 IU TAB PO SCH (17:48)
[2022-06-02] MEDS ORDERED: ACETAMINOPHEN 325 MG TAB ONE (21:14)
[2022-06-02] MEDS: SIMVASTATIN 20 MG TAB PO SCH (21:21)
[2022-06-02] MEDS: TAMSULOSIN HCL 0.4 MG CAP PO SCH (21:21)
[2022-06-02] MEDS: METOPROLOL SUCC 25MG EXT REL TAB PO SCH (21:21)
[2022-06-02] MEDS: ASPIRIN 81 MG ECTAB PO SCH (21:21)
[2022-06-02] MEDS: ACETAMINOPHEN 325 MG TAB PO PRN (21:21)
[2022-06-03 05:24] LABS: Albumin Globulin Ratio 1.6 (0.9-2); Albumin Level 3.4 gm/dl (3.4-5.0); BUN Creatinine Ratio 20.2 (10-20); Bilirubin,Total 0.5 mg/dl (0.2-1.0); Calcium 8.6 mg/dl (8.5-10.1); Creatinine Clr Calc Pharmacy 76.1 ml/min; Est GFR (African American) 94.3 ml/min; Est GFR (Non-African American) 81.3 ml/min; Globulin 2.1 gm/dl (2.5-4.0); Potassium 4.8 mmol/L (3.5-5.1); Total Protein 5.5 gm/dl (6.0-8.3)
[2022-06-03 05:43] LABS: Hematocrit (blood only) 39.9 % (40.1-51.0); Hemoglobin 13.5 g/dl (14.0-18.0); Mean Corpuscular Hemoglobin 29.7 pg (25.0-34.0); Mean Corpuscular Hgb Conc 33.8 g/dL (32.0-36.0); Mean Corpuscular Volume 87.9 fL (80.0-100.0); Mean Platelet Volume 9.1 fL (9.4-12.4); Platelet Count 115 K/uL (130-400); RDW Coefficient of Variation 13.5 % (11.5-14.5); RDW Standard Deviation 43.5 fL (36.4-46.3); Red Blood Count 4.54 M/uL (4.63-6.08); White Blood Count 6.01 K/ul (4.8-10.8)
[2022-06-03] MEDS: allopurinoL 300 MG TAB PO SCH (09:58)
[2022-06-03] MEDS: ENOXAPARIN INJ 40 MG/0.4 ML SYR SQ SCH (09:58)
[2022-06-03] MEDS: ANASTROZOLE 1 MG TAB PO SCH (09:58)
[2022-06-03] MEDS: OSELTAMIVIR PHOSPHATE 75 MG CAP PO SCH ×2 (09:58→22:17)
[2022-06-03] MEDS: guaiFENesin 600 MG TABCR PO SCH ×2 (09:58→22:16)
[2022-06-03] MEDS: PANTOprazole 40 MG in SYRINGE 0 ML IV SCH (09:58)
[2022-06-03] MEDS: INSULIN ASPART PER UNIT SC SCH ×4 (09:59→20:45)
[2022-06-03] MEDS: LANTUS PER UNIT CHARGE SQ SCH ×2 (09:59→22:23)
[2022-06-03] MEDS: ACETAMINOPHEN 325 MG TAB PO PRN (15:01)
[2022-06-03] MEDS: CALCIUM 600MG + VIT D 400 IU TAB PO SCH (17:46)
[2022-06-03] MEDS: TAMSULOSIN HCL 0.4 MG CAP PO SCH (22:16)
[2022-06-03] MEDS: SIMVASTATIN 20 MG TAB PO SCH (22:16)
[2022-06-03] MEDS: ASPIRIN 81 MG ECTAB PO SCH (22:17)
[2022-06-03] MEDS: METOPROLOL SUCC 25MG EXT REL TAB PO SCH (22:17)
[2022-06-04 07:48] VITALS: BP 116/69; PULSE 69; TEMP 98.6; O2SAT 92
[2022-06-04 08:48] LABS: Hemoglobin 13.8 g/dl (14.0-18.0); Mean Corpuscular Hemoglobin 29.5 pg (25.0-34.0); Mean Corpuscular Hgb Conc 34.5 g/dL (32.0-36.0); Mean Corpuscular Volume 85.5 fL (80.0-100.0); Mean Platelet Volume 9.4 fL (9.4-12.4); Platelet Count 132 K/uL (130-400); RDW Coefficient of Variation 13.5 % (11.5-14.5); RDW Standard Deviation 41.7 fL (36.4-46.3); Red Blood Count 4.68 M/uL (4.63-6.08); White Blood Count 5.04 K/ul (4.8-10.8)
[2022-06-04] MEDS: ENOXAPARIN INJ 40 MG/0.4 ML SYR SQ SCH (08:57)
[2022-06-04] MEDS: OSELTAMIVIR PHOSPHATE 75 MG CAP PO SCH (08:57)
[2022-06-04] MEDS: ANASTROZOLE 1 MG TAB PO SCH (08:57)
[2022-06-04] MEDS: guaiFENesin 600 MG TABCR PO SCH (08:57)
[2022-06-04] MEDS: allopurinoL 300 MG TAB PO SCH (08:57)
[2022-06-04 08:58] LABS: Albumin Globulin Ratio 1.6 (0.9-2); Albumin Level 3.5 gm/dl (3.4-5.0); BUN Creatinine Ratio 23.8 (10-20); Bilirubin,Total 0.5 mg/dl (0.2-1.0); Calcium 8.6 mg/dl (8.5-10.1); Creatinine Clr Calc Pharmacy 80.6 ml/min; Est GFR (African American) 96.5 ml/min; Est GFR (Non-African American) 83.3 ml/min; Globulin 2.2 gm/dl (2.5-4.0); Potassium 3.9 mmol/L (3.5-5.1); Total Protein 5.7 gm/dl (6.0-8.3)
[2022-06-04] MEDS: INSULIN ASPART PER UNIT SC SCH (08:58)
[2022-06-04] MEDS: LANTUS PER UNIT CHARGE SQ SCH (08:59)
--- NOTE | 2022-06-04 10:04 | Discharge Summary ---
Date of Service June 04, 2022 Admission HPI Per Admitting Provider Marcus is a 79-year-old male with PMH of CAD, DM II, HTN, HLD, GERD, breast cancer on anastrozole, and prostate cancer on Lupron who presented to the [facility] ED on 06/01/22 via EMS for progressive generalized weakness due to illness. In the ED the patient was found to be afebrile, hemodynamically stable, and stable on RA. Labs were remarkable for a leukocytosis of 10.82 with left shift of 8.91, stable Hgb, influenza A positive, Covid/Influenza B/RSV negative, Chest xray was read as "no active chest disease:. Prior to admission the patient was ordered 1L NSS bolus and one dose of 75 mg PO Tamiflu At the time of the exam the patient was resting comfortably in bed in no acute distress with his sitting bedside, history was obtained from both. They state the the patient began developing URI symptoms including congestion, a non-productive cough, body aches, and progressive generalized weakness. He had a fall out of bed yesterday. He states that he didn't want to wake his up to help him go to the bathroom and attempted to get out of bed himself. He states that his legs were weak and he fell to the ground, landing on his left shoulder and hip. He denies hitting his head or losing consciousness, and he is not on blood thinners. He denies pain at either of his left extremities and has no other pain from his fall. He came to the ED today because he has become so weak he cannot help his with his ADLs and they are concerned he will continue to falls. They state that his PO intake has been poor over the past 24 hours. He denies chest pain, abdominal pain, nausea, vomiting, diarrhea, dysuria, hematuria, diarrhea, melena, and bloody bowel movements. His confirms that he is still following with [facility] oncology and radiation oncology, he is still taking his Lupron and Anastrazole as prescribed. I spoke with them regarding code status, the patient is a Full Code and would want his to make decisions for him if he could not make them himself. Please refer to Dr. Amor's attestation for any changes to the treatment plan Admission Exam Per Admitting Provider General:In no acute distress, stated age, well-nourished, good hygiene, non- toxic appearing HEENT:Normocephalic, atraumatic, no scleral icterus, pupils around round, symmetrical, and reactive to light, dry mucus membranes, trachea midline, no thyromegaly Chest/Pulm:No respiratory distress, symmetrical chest expansion, clear breath sounds throughout Cardiac:RRR, no murmurs noted Abdomen:Negative for ascites and bruising, normoactive bowel sounds, soft, non-tender to palpation throughout Musculoskeletal:Symmetrical and without signs of acute trauma, upper and lower extremities with full ROM, no atrophy, spasticity, or flaccidity Extremities:Radial, dorsalis pedis, and posterior tibial pulses are intact and symmetrical, no edema noted in the BL LE's Skin:Warm, dry, no rashes , lesions, or scars noted Neuro:Alert and oriented to person, place, month, year, and president, no focal defects, CN II-XII tested and intact, no tremors noted Psych:No acute distress, calm and cooperative during the exam Principal Diagnosis Influenza Discharge Exam Constitutional WD/WN, vitals as above Eyes + anicteric sclerae ENMT external ear and nose normal, oropharynx normal Neck trachea midline, no thyromegaly Respiratory normal respiratory effort and + cough Auscultation: + rhonchi (throughout, but improved from admission ); no crackles Cardiovascular RRR, no murmur, no edema Musculoskeletal Head/Neck/Chest: normocephalic and head atraumatic Skin no rashes, warm and dry Neurologic moves all extremities Psychiatric A+Ox3, euthymic affect Discharge Data Allergies Allergy/AdvReac Type Severity Reaction Status Date / Time Penicillins Allergy Intermediate RASH/CONFUS Verified 06/01/22 19:07 ION sulfamethoxazole Allergy Intermediate RASH Verified 06/01/22 19:07 trimethoprim Allergy Intermediate RASH Verified 06/01/22 19:07 Consultations 06/01/22 18:48 ED Decision to Admit Stat Hospital Course (1) Generalized weakness: Mr. Sarmiento is a 81 yo M who was admitted due to generalized weakness, found to be positive for flu A on admission - patient required supplemental O2 on admission, but was breathing well on room air by the time of discharge - WBC elevated to 10.82 on admission, normalized by discharge - continue Tamiflu 75mg BID for 5 days. Script sent to pharmacy for him to complete course at home. - CXR without signs of focal consolidation, no concern for superimposed bacterial PNA. Antibiotics were not given. - He was evaluated by therapy services while inpatient who recommend home with home health/PT services. These were arranged for him at the time of discharge. (2) Influenza A: -See above (3) Diabetes mellitus, type II: - home oral agents were held in hospital and he was treated with Lantus + SSI - recommend he resume home dose metformin at discharge, however strongly recommend his glipizide be discontinued given risk of hypoglycemia in the elderly with sulfonylurea use (4) Hypertension: - continue home medications (5) BPH (benign prostatic hyperplasia): - continue home flomax (6) Prostate cancer: -Follows with [facility] Oncology and radiatio oncology -Currently gets monthly Lupron injections (7) GERD (gastroesophageal reflux disease): - continue home medication (8) CAD (coronary artery disease): -Continue aspirin, metoprolol and DONNA (9) Breast cancer in male: -Follows with [facility] Oncology and radiation oncology, S/P right mastectomy with recurrence. Now S/P radiation and currently on anastrozole -Continue anastrozole Total Time Total Time Spent Total Time Spent (In Minutes): > 35 Total Time Includes: Examination of the Patient, Discharge Planning and Medication Reconciliation Discharge Plan Discharge Items Patient Disposition: Home - Home Health Services Reason For Visit: GENERALIZED WEAKNESS Discharge Diagnosis: Influenza Condition on Discharge: Fair Activity: Resume your previous activity Non-emergency contact: Primary Care Provider Call non-emergency contact if: you have any medication questions Follow-up/Referrals: Patel Scott MD [Primary Care Provider] - 06/10/22 1:25 pm (Appointment with Dr. Adkins) Diet: Heart Healthy Addtl Attending Provider Instructions: You were hospitalized at [facility] for shortness of breath and found to have influenza. We treated you with an anti-viral agent, Tamiflu, and you clinically improved while under our care. Please continue to take Tamiflu twice daily for the next 2 days to complete your medication course. Your first dose at home should be evening of 06/04/22. This script was sent to your pharmacy. Please also continue to use your incentive spirometer once every 4 hours, which will help your lungs recover. You may also use Mucinex, which is available over the counter. This help thin mucous out, making mucous easier to cough up. Please see your family doctor in one week for follow up care. Pending Studies at Discharge: No Stand-Alone Forms: My [facility], Smoking Cessation Medications and DC Order Prescriptions: New oseltamivir [Tamiflu] 75 mg Capsule 75 mg PO BID 3 Days Qty: 5 0RF Continued Lupron Depot 7.5 mg syringe kit 7.5 mg IM MONTHLY Rx Instructions: USUALLY BETWEEN THE 15-18 OF THE MONTH. anastrozole [Arimidex] 1 mg tablet 1 mg PO DAILY simvastatin 20 mg Tablet 20 mg PO HS nitroglycerin [Nitrostat] 0.4 mg Tablet, Sublingual 1 tab Sublingual DIRECTED PRN (Reason: Chest Pain) aspirin 81 mg Tablet,Chewable 81 mg PO HS allopurinol 300 mg Tablet 300 mg PO QAM glipizide 5 mg Tablet 5 mg PO DAILY Probiotic Complex 25 billion cell -100 mg capsule 1 cap PO UD PRN (Reason: stomach discomfort) lisinopril 5 mg tablet 5 mg PO DAILY metformin 500 mg Tablet 500 mg PO BIDM metoprolol succinate 50 mg tablet extended release 24 hr 50 mg PO HS Rx Instructions: TOTAL DOSE 75 MG--TAKES WITH 25 MG TAB. tamsulosin 0.4 mg capsule 0.4 mg PO HS metoprolol succinate 25 mg tablet extended release 24 hr 25 mg PO HS Rx Instructions: TOTAL DOSE 75 MG--TAKES WITH 50 MG TAB. calcium carbonate-vitamin D3 [Calcium 600 + D(3)] 600 mg-10 mcg (400 unit) Tablet 1 tab PO QDD Discharge Orders: Discharge Order (Routine); Ordered 06/04/22 Ordered By: Kala Maloney Admission Data Admit Date/Time: 06/01/22 20:25 Attending Provider: Kala Maloney Admit Provider: Matthew Amor Primary Care Provider: Patel Scott Other Providers: Michael Ayers Other Interventions: Discharge Summary Assessment (RN) Last Done: 06/04/22 10:30 Coding Level of Care Code D/C DAY MANAGEMENT >30 MINS Diagnoses Generalized weakness R53.1 Influenza A J10.1 Diabetes mellitus, type II E11.9 Hypertension I10 BPH (benign prostatic hyperplasia) N40.0 Prostate cancer C61 GERD (gastroesophageal reflux disease) K21.9 CAD (coronary artery disease) I25.10 Breast cancer in male C50.924
[2022-06-04] MEDS: PANTOprazole 40 MG in SYRINGE 0 ML IV SCH (10:24)
== END 2022-06-04 10:57 | disposition home health service (06) | DRG 195 ==
LOC: ED 13:26 → SUATTDRO 20:25 → EDINP 20:25 → 2N 06-02 21:11